=== PATIENT | male | born 1930 | race Caucasian/White ===

== ENCOUNTER 2018-12-14 17:45 | Inpatient (IN) | payer MEDICARE, MEDICAID ==
[~2018-12-14] VITALS: Ht 172.7 cm; Wt 92.1 kg
[~2018-12-14 17:45] MED LIST: ASPI-465; AZIT250T; CLOP75TA19; CRES20; DICY20TA59; FENO145T25; FURO40TA4; RABE20TA18; TERA5CAP3
[2018-12-14] MEDS ORDERED: ALBUTEROL 0.083% (NEB) 2.5 MG/3 ML AMP HHN STA (17:47)
[2018-12-14] MEDS ORDERED: IPRATROPIUM (NEB) 0.5 MG/2.5 ML AMP HHN ONE (18:00)
[2018-12-14] MEDS ORDERED: CEFTRIAXONE 1 GM/50 ML (PMX) 50 ML IVPB ONE (18:00)
[2018-12-14] MEDS ORDERED: AZITHROMYCIN 500MG/NS (PMX) 250 ML IVPB ONE (18:00)
[2018-12-14] MEDS ORDERED: METHYLPREDNISOLONE 125 MG INJ IV ONE (18:00)
[2018-12-14] MEDS ORDERED: ASPIRIN 325 MG TAB PO ONE (19:00)
[2018-12-14] MEDS ORDERED: ONDANSETRON 4 MG INJ IV PRN (19:30)
[2018-12-14] MEDS ORDERED: HEPARIN 1000 UNITS/ML 10 ML INJ IV ONE (19:30)
[2018-12-14] MEDS ORDERED: ACETAMINOPHEN 325 MG TAB PO PRN (19:30)
[2018-12-14] MEDS ORDERED: NITROGLYCERIN (SL) 0.4 MG TAB SL PRN (19:30)
[2018-12-14] MEDS ORDERED: NACL 0.9% 3 ML SYG IV SCH (19:30)
[2018-12-14] MEDS ORDERED: HEPARIN 1000 UNITS/ML 10 ML INJ IV PRN (19:30)
[2018-12-14] MEDS ORDERED: HEPARIN 25000 UNITS/250 ML 250 ML IV SCH (19:30)
[2018-12-14] MEDS: ATORVASTATIN 80 MG TAB PO SCH (20:06)
--- NOTE | 2018-12-14 20:32 | ERD ---
ER Documentation Chief Complaint Chief Complaint BIB [facility] FOR EVAL OF SOB TODAY. ALBUTEROL GIVEN BY EMS SHOE [employer]ISHER HPI Patient is an 88-year-old male with coronary disease who presents with shortness of breath. Please note the history and physical exam is limited patient shortness of breath. The patient was brought in by ambulance. The patient is on a new medication to raise his white blood cells which is possibly Neupogen. He has had worsening shortness of breath for the past 4 days. He is wheezing. He was given 5 mg of albuterol by paramedics. He has bilateral lower extremity swelling. Upon review of old medical records this is the patient's third visit to the ER since 2010. ROS All systems reviewed and are negative except as per history of present illness. Medications Home Meds Reported Medications Fenofibrate Nanocrystallized* (Tricor*) 145 Mg Tablet 09/19/10 Azithromycin* (Zithromax*) 250 Mg Tablet 09/19/10 Rosuvastatin Calcium* (Crestor*) 20 Mg Tablet 09/19/10 Dicyclomine Hcl* (Bentyl*) 20 Mg Tablet 09/19/10 Clopidogrel Bisulfate (Plavix) 75 Mg Tablet 09/19/10 Rabeprazole Sodium* (Aciphex*) 20 Mg Tablet. 09/19/10 Terazosin Hcl* (Terazosin Hcl*) 5 Mg Capsule 09/19/10 Aspirin (Adult Low Dose Aspirin) 81 Mg Tablet. 09/19/10 Furosemide (Lasix) 40 Mg Tab 09/19/10 Allergies Allergies: Coded Allergies: No Known Allergies (Verified Allergy, Mild, 05/06/12) PMhx/Soc History of Surgery: Yes (QUADRUPLE BX- '06, ANGIOPLASTY '07, HERNIA SX '08) Anesthesia Reaction: No Hx Neurological Disorder: No Hx Respiratory Disorders: No Hx Cardiac Disorders: Yes (cholesterol, HTN) Hx Psychiatric Problems: No Hx Miscellaneous Medical Probl: Yes (HTN, LYMPHADEMA RLE, iron deficiency) Hx Alcohol Use: Yes (1-2x/ month) Hx Substance Use: No Hx Tobacco Use: Yes (quit 40ya) Smoking Status: Former smoker FmHx Family History: No diabetes Physical Exam Vitals Vital Signs Date Temp Pulse Resp B/P (MAP) Pulse Ox O2 O2 Flow FiO2 Time Delivery Rate 12/14/18 80 18 108/48 95 Nasal 18:36 (68) Cannula 12/14/18 Nasal 2 18:34 Cannula 12/14/18 76 28 100 Aerosol 8.0 50 17:55 12/14/18 98.9 77 20 111/55 100 17:50 (73) Physical Exam Const: Moderate distress Head: Atraumatic Eyes: Normal Conjunctiva ENT: Normal External Ears, Nose and Mouth. Neck: Full range of motion. No meningismus. Resp: Tachypnea and wheezing Cardio: Regular rate and rhythm, no murmurs Abd: Soft, non tender, non distended. Normal bowel sounds Skin: No petechiae or rashes Back: No midline or flank tenderness Ext: Bilateral lower extremity swelling Neur: Awake and alert Psych: Normal Mood and Affect Result Diagram: 12/14/18175812/14/181758 Results 24 hrs Laboratory Tests Test 12/14/18 17:56 12/14/18 17:57 12/14/18 17:59 POC Venous Lactate 0.7 mmol/L B-Type Natriuretic Peptide 26274 PG/ML White Blood Count 12.1 10^3/ul Red Blood Count 2.99 10^6/ul Hemoglobin 8.8 g/dl Hematocrit 28.6 % Mean Corpuscular Volume 95.7 fl Mean Corpuscular Hemoglobin 29.4 pg Mean Corpuscular 30.8 g/dl Hemoglobin Concent Red Cell Distribution Width 15.8 % Platelet Count 133 10^3/UL Mean Platelet Volume 12.5 fl Immature Granulocytes % 0.900 % Neutrophils % 88.5 % Lymphocytes % 4.4 % Monocytes % 6.0 % Eosinophils % 0.0 % Basophils % 0.2 % Nucleated Red Blood Cells % 0.2 /100WBC Immature Granulocytes # 0.110 10^3/ul Neutrophils # 10.7 10^3/ul Lymphocytes # 0.5 10^3/ul Monocytes # 0.7 10^3/ul Eosinophils # 0.0 10^3/ul Basophils # 0.0 10^3/ul Nucleated Red Blood Cells # 0.0 10^3/ul Prothrombin Time 17.1 Sec Prothrombin Time Ratio 1.3 INR International Normalized Ratio 1.38 Activated Partial Thromboplast 41.1 Sec Time Sodium Level 145 mmol/L Potassium Level 5.2 mmol/L Chloride Level 110 mmol/L Carbon Dioxide Level 24 mmol/L Anion Gap 11 Blood Urea Nitrogen 94 mg/dl Creatinine 3.38 mg/dl Est Glomerular Filtrat Rate mL/min mL/min Glucose Level 155 mg/dl Calcium Level 8.3 mg/dl Total Bilirubin 0.0 mg/dl Direct Bilirubin 0.00 mg/dl Indirect Bilirubin 0.0 mg/dl Aspartate Amino Transf (AST/SGOT) 26 IU/L Alanine 22 IU/L Aminotransferase (ALT/SGPT) Alkaline Phosphatase 133 IU/L Troponin I 0.361 ng/ml Total Protein 6.5 g/dl Albumin 3.6 g/dl Globulin 2.90 g/dl Albumin/Globulin Ratio 1.24 Current Medications Medications Dose Sig/Syd Start Time Status Last (Trade) Ordered Route PRN Stop Time Admin Dose Reason Admin Albuterol 5 mg ONCE STAT 12/14/18 DC 12/14/18 (Proventil HHN 17:47 17:54 0.083% (Neb)) 12/14/18 17:48 Ipratropium 0.5 mg ONCE ONCE 12/14/18 DC 12/14/18 [place] HHN 18:00 17:54 (Atrovent 12/14/18 18:01 0.02% (Neb)) 125 mg ONCE ONCE 12/14/18 DC 12/14/18 Methylprednis IV 18:00 18:09 olone Sodium 12/14/18 18:01 Succinate (Solu-Medrol) Ceftriaxone 50 ml @ ONCE ONCE 12/14/18 DC 12/14/18 Sodium 100 mls/hr IVPB 18:00 18:09 12/14/18 18:29 Azithromycin 250 ml @ ONCE ONCE 12/14/18 DC 12/14/18 250 mls/hr IVPB 18:00 18:29 12/14/18 18:59 Aspirin 325 mg ONCE ONCE 12/14/18 DC 12/14/18 (Aspirin) PO 19:00 18:54 12/14/18 19:01 Ondansetron 4 mg ER BRIDGE 12/14/18 HCl (Zofran PRN IV 19:30 Inj) NAUSEA/VOMITI 12/15/18 19:29 NG 650 mg ER BRIDGE 12/14/18 Acetaminophen PRN PO 19:30 (Tylenol .MILD PAIN 12/15/18 19:29 Tab) 1-3 OR TEMP IV Flush 3 ml PER 12/14/18 (NS 3 ml) PROTOCOL IV 19:30 Aspirin 81 mg DAILY PO 12/15/18 (Aspirin) 09:00 1 tab Q5M PRN 12/14/18 Nitroglycerin SL .CHEST 19:30 PAIN (Nitroglyceri n (Sl Tab) 0.4 Mg) 650 mg Q6H PRN 12/14/18 Acetaminophen PO .PAIN 1-3 19:30 (Tylenol OR TEMP Tab) 1 tab Q6H PRN 12/14/18 Acetaminophen PO .PAIN 4-6 19:30 / Hydrocodone Bitart ([place] (5/325)) Morphine 2 mg Q4H PRN 12/14/18 Sulfate IV .PAIN 19:30 (morphine) 7-10 DC ONCE ONCE 12/14/18 DC Miscellaneous previous XX 19:30 hepa... 12/14/18 19:30 Information (* Miscellaneous Pharmacy Order) Heparin 4,000 unit ONCE ONCE 12/14/18 DC Sodium IV 19:30 (Porcine) 12/14/18 19:30 (Heparin (1000 Units/ml)) Heparin 4,000 unit PER PROTOCOL 12/14/18 DC Sodium PRN IV 19:30 (Porcine) aPTT<47 12/14/18 19:30 (Heparin (1000 Units/ml)) Heparin 250 ml @ 0 PER 12/14/18 DC Sodium mls/hr PROTOCOL IV 19:30 (Porcine) 12/14/18 19:30 80 mg HS PO 12/14/18 12/14/18 Atorvastatin 21:00 20:06 Calcium (Lipitor) Procedures/MDM EKG read by me: Rate/Rhythm: Right bundle branch block rate 71 Intervals: Normal Impression: Right bundle branch block without ST elevations X-ray shows pneumonia versus pulmonary edema per radiology. Patient is a 88-year-old male presents with shortness of breath. The patient was given albuterol and Atrovent as well as Solu-Medrol. X-ray shows possible pneumonia so he was given ceftriaxone and Zithromax as well. Troponin is positive but the patient also has elevated BUN and creatinine. However this is possibly an NSTEMI so the patient was given aspirin. The patient will be admitted to the care of the panel team to a telemetry inpatient bed. Prognosis is poor given his age and comorbidities. Discussed with the family regarding goals of care would be appropriate. I doubt STEMI, pneumothorax, or pulmonary embolism. I doubt sepsis or severe sepsis at this time. Critical Care: Time: 35 minutes excluding all billable procedures. Treatments/Evaluations: Close monitoring and treatment of unstable vital signs, cardiorespiratory, and neurologic status, while maintaining tight balance of fluid, respiratory, and cardiac interventions. Departure Diagnosis: Primary Impression: Shortness of breath Additional Impressions: Pneumonia Pneumonia type: due to unspecified organism Laterality: unspecified laterality Lung location: unspecified part of lung Qualified Codes: J18.9 - Pneumonia, unspecified organism NSTEMI (non-ST elevated myocardial infarction) Condition: Serious LIZZY SINGER MD Dec 14, 2018 20:32
[2018-12-14 21:00] VITALS: BP_SYST 125; BP_SYST 126; BP_DIAS 58; BP_DIAS 62; PULSE 71; PULSE 73; RESP 18
[2018-12-14 21:11] VITALS: PULSE 73
[2018-12-14 21:18] VITALS: Ht 172.7 cm; Wt 92.1 kg
--- NOTE | 2018-12-14 23:38 | HP ---
Date/Time of Note Date/Time of Note DATE: 12/14/18 TIME: 23:38 Assessment/Plan VTE Prophylaxis Risk score (from Ns)>0 risk: 8 SCD applied (from Ns): Yes Pharmacological prophylaxis: LMWH Lines/Catheters IV C[facility]ter [facility] (from [facility]): Saline Lock Assessment/Plan Assessment/Plan 1. CHF exacerbation: Acute on chronic -Telemetry monitoring -Will diurese -Monitor urine output -2D echo 2. NSTEMI -Status post aspirin ER -will give treatment dose blood thinner -Serial troponin -2D echo and cardiology consult 3. Presumed acute on CKD -Place a Pleitez especially given history of BPH -Renal ultrasound and nephrology consult -Urine electrolytes 4. BPH: Continue home med 5. Hypertension: BP is in acceptable range. Continue home meds 6. History of CAD with CABG: See above 7. Anemia -Check FOBT and ferritin/iron to work-up for GI bleed and iron deficiency Result Diagram: 12/14/18 1759 12/14/18 1759 Results 24hrs Laboratory Tests Test 12/14/18 17:56 12/14/18 17:57 12/14/18 17:59 12/14/18 19:32 POC Venous Lactate 0.7 B-Type Natriuretic 25289 H Peptide White Blood Count 12.1 H Red Blood Count 2.99 L Hemoglobin 8.8 L Hematocrit 28.6 L Mean Corpuscular 95.7 Volume Mean Corpuscular 29.4 Hemoglobin Mean Corpuscular 30.8 L Hemoglobin Concent Red Cell 15.8 H Distribution Width Platelet Count 133 L Mean Platelet Volume 12.5 H Immature 0.900 H Granulocytes % Neutrophils % 88.5 H Lymphocytes % 4.4 L Monocytes % 6.0 Eosinophils % 0.0 Basophils % 0.2 Nucleated Red Blood 0.2 H Cells % Immature 0.110 H Granulocytes # Neutrophils # 10.7 H Lymphocytes # 0.5 L Monocytes # 0.7 Eosinophils # 0.0 Basophils # 0.0 Nucleated Red Blood 0.0 Cells # Prothrombin Time 17.1 H Prothrombin Time 1.3 Ratio INR International 1.38 Normalized Ratio Activated 41.1 H Partial Thromboplast Time Sodium Level 145 H Potassium Level 5.2 H Chloride Level 110 Carbon Dioxide Level 24 Anion Gap 11 Blood Urea Nitrogen 94 H Creatinine 3.38 H Est Glomerular Filtrat Rate mL/min Glucose Level 155 Calcium Level 8.3 L Total Bilirubin 0.0 L Direct Bilirubin 0.00 Indirect Bilirubin 0.0 Aspartate Amino 26 Transf (AST/SGOT) Alanine 22 Aminotransferase (AL T/SGPT) Alkaline Phosphatase 133 H Troponin I 0.361 *H 0.402 *H Total Protein 6.5 Albumin 3.6 Globulin 2.90 Albumin/Globulin 1.24 Ratio Test 12/14/18 22:05 Lactic Acid Level 0.8 HPI/ROS Admit Date/Time Admit Date/Time Dec 14, 2018 at 19:05 Hx of Present Illness This is an 88-year-old male with a history of hypertension, asthma, BPH, CKD, CAD with CABG who presents the ER complaining of shortness of breath and wheezing. Patient states he gets short of breath a lot of times but over the past few days has been progressively getting worse. Denied chest pain. When presented to the ER, vitals were stable. Labs shows a WBC of 12,000, hemoglobin 8.8, creatinine 3.38, potassium 5.2. BNP 16,000. First troponin 0.361. Chest x-ray shows mild pulmonary vascular congestion with interstitial edema. Strandy consolidation in both midlung zones laterally can be seen with alveolar edema or infection. PMH/Family/Social Past Medical History Medical History: other (See HPI) Medications Current Medications Ondansetron HCl (Zofran Inj) 4 mg ER BRIDGE PRN IV NAUSEA/VOMITING; Start 12/14/18 at 19:30; Stop 12/15/18 at 19:29 Acetaminophen (Tylenol Tab) 650 mg ER BRIDGE PRN PO .MILD PAIN 1-3 OR TEMP; Start 12/14/18 at 19:30; Stop 12/15/18 at 19:29 IV Flush (NS 3 ml) 3 ml PER PROTOCOL IV ; Start 12/14/18 at 19:30 Aspirin (Aspirin) 81 mg DAILY PO ; Start 12/15/18 at 09:00 Nitroglycerin (Nitroglycerin (Sl Tab) 0.4 Mg) 1 tab Q5M PRN SL .CHEST PAIN; Start 12/14/18 at 19:30 Acetaminophen (Tylenol Tab) 650 mg Q6H PRN PO .PAIN 1-3 OR TEMP; Start 12/14/18 at 19:30 Acetaminophen/ Hydrocodone Bitart ([place] (5/325)) 1 tab Q6H PRN PO .PAIN 4-6; Start 12/14/18 at 19:30 Morphine Sulfate (morphine) 2 mg Q4H PRN IV .PAIN 7-10; Start 12/14/18 at 19:30 Atorvastatin Calcium (Lipitor) 80 mg HS PO Last administered on 12/14/18at 20:06; Admin Dose 80 MG; Start 12/14/18 at 21:00 Coded Allergies: No Known Allergies (Verified Allergy, Mild, 05/06/12) Past Surgical History Past Surgical Hx: coronary bypass surgery Family History Significant Family History: no pertinent family hx Social History Alcohol Use: none Smoking Status: Former smoker Drug Use: none Exam/Review of Systems Vital Signs Vitals Vital Signs Date Temp Pulse Resp B/P (MAP) Pulse Ox O2 O2 Flow FiO2 Time Delivery Rate 12/14/18 73 21:11 12/14/18 Nasal 2.0 21:00 Cannula 12/14/18 97.9 18 126/58 95 21:00 (80) 12/14/18 50 17:55 Exam Constitutional: other (Mild shortness of breath noted) Head: normocephalic, atraumatic Eyes: EOMI, PERRL Respiratory: diminished breath sounds, wheezing Cardiovascular: regular rate and rhythm, nl pulses Gastrointestinal: soft Extremities: other (Bilateral lower extremity pitting edema. Right lower extremity is bigger than left and has some venous stasis change and old scar) LAUREN NELSON MD Dec 14, 2018 23:38
[2018-12-15] VITALS (10 sets, daily range): BP systolic 113–185; BP diastolic 55–81; PULSE 61–80; RESP 18–20
[2018-12-15] MEDS ORDERED: ENOXAPARIN 100 MG/ML SYG SC STA (02:45)
[2018-12-15] MEDS: ASPIRIN 81 MG TAB PO SCH (09:26)
[2018-12-15] MEDS: FUROSEMIDE 20 MG INJ IV SCH ×2 (09:26→18:00)
[2018-12-15] MEDS ORDERED: ALBUTEROL/IPRATROPIUM (NEB) 3 ML AMP HHN PRN (11:00)
[2018-12-15] MEDS ORDERED: hydrALAzine 20 MG INJ IV PRN (11:00)
[2018-12-15] MEDS: ARFORMOTEROL TARTRATE 15MCG/2 ML AMP NEB SCH ×2 (11:00→22:42)
--- NOTE | 2018-12-15 11:20 | PN ---
Date/Time of Note Date/Time of Note DATE: 12/15/18 TIME: 11:12 Assessment/Plan VTE Prophylaxis Risk score (from Nsg)>0 risk: 5 SCD applied (from Nsg): Yes Pharmacological prophylaxis: heparin Lines/Catheters IV Catheter Type (from [place]): Saline Lock Assessment/Plan Hospital Course SUBJECTIVE: Continues to complain of dyspnea. Denies any chest pain. OBJECTIVE: Physical Exam General: Obese, 88 year-old female lying in bed in mild to moderate respiratory distress. HEENT: Normocephalic, atraumatic. Eyes: Anicteric sclerae, conjunctivae clear. ENT: Nasal septum midline, oral mucosa moist. Neck supple. Respiratory: Bilaterally diminished breath sounds. Use of accessory muscles of respiration. Bilateral expiratory wheezing. Cardiovascular: S1, S2 heard. Regular rate and rhythm. Abdomen: Soft, nontender, and nondistended. Bowel sounds positive in all 4 quadrants. Genitourinary: Deferred. Extremities: No cyanosis, no clubbing. Bilateral lower extremity edema. Right lower extremity edema greater than the left. Neurologic: Cranial nerves II through XII grossly intact. The patient is awake, alert, and oriented. Labs & Vitals per chart ASSESSMENT & PLAN 88-year-old male with comorbidities including CAD status post CABG, dyslipidemia, obesity, chronic kidney disease, prostate hypertrophy, and hypertension, who came to the emergency room with chief complaint of dyspnea and wheezing that has been progressively getting worse. Patient was also noticed to have elevated troponins in the emergency room. The patient's chest x-ray was showing evidence of mild pulmonary vascular congestion with interstitial edema. The patient was admitted to inpatient setting for further treatment and evaluation. 1. Acute respiratory failure. -Hypoxic. -Most probably secondary to underlying reactive airway disease and CHF exacerbation. -Continue inhaled bronchodilators ADIA and LABA. -Start tapering dose of steroids -Continue diuresis as renal function allows 2. Suspect COPD. -Remote history of smoking over years. -Continue inhaled bronchodilators ADIA and LABA. -Start tapering dose of steroids. 3. NSTEMI. -Known history of CAD, status post CABG. -Continue aspirin. -Continue high-dose statins. -Cardiology consult pending. 4. Acute on chronic kidney disease. -Nephrology consult has been obtained. 5. Benign prostatic hypertrophy. -Continue tamsulosin. 6. Hypertension. -Blood pressure well controlled off antihypertensives. 7. Dyslipidemia. -Continue statins. 8. Hyperkalemia. -Most probably secondary to worsening renal function. -Treat with potassium exchange resins. 9. Metabolic acidosis. -Etiology could be secondary to worsening renal function. 10. Normocytic anemia -Most probably secondary to underlying chronic kidney disease. -Monitor H&H closely. 11. Chronic right lower extremity lymphedema. 12. CHF exacerbation. -Systolic Vs diastolic. -Continue diuresis as renal function allows. -Pending 2D echocardiogram. 13. Fluids, electrolytes, and nutrition. N.p.o. except for medications. 14. DVT prophylaxis. -SQ heparin. 15. Plan. -Continue inhaled bronchodilators and tapering dose of steroids. -Continue inpatient monitoring. -Await cardiology evaluation. The patient was seen in collaboration with . Result Diagram: 12/15/1862712/15/18627 Results 24hrs Laboratory Tests Test 12/14/18 17:56 12/14/18 17:57 12/14/18 17:59 12/14/18 19:32 POC Venous Lactate 0.7 B-Type Natriuretic 03899 H Peptide White Blood Count 12.1 H Red Blood Count 2.99 L Hemoglobin 8.8 L Hematocrit 28.6 L Mean Corpuscular 95.7 Volume Mean Corpuscular 29.4 Hemoglobin Mean Corpuscular 30.8 L Hemoglobin Concent Red Cell 15.8 H Distribution Width Platelet Count 133 L Mean Platelet Volume 12.5 H Immature 0.900 H Granulocytes % Neutrophils % 88.5 H Lymphocytes % 4.4 L Monocytes % 6.0 Eosinophils % 0.0 Basophils % 0.2 Nucleated Red Blood 0.2 H Cells % Immature 0.110 H Granulocytes # Neutrophils # 10.7 H Lymphocytes # 0.5 L Monocytes # 0.7 Eosinophils # 0.0 Basophils # 0.0 Nucleated Red Blood 0.0 Cells # Prothrombin Time 17.1 H Prothrombin Time 1.3 Ratio INR International 1.38 Normalized Ratio Activated 41.1 H Partial Thromboplast Time Sodium Level 145 H Potassium Level 5.2 H Chloride Level 110 Carbon Dioxide Level 24 Anion Gap 11 Blood Urea Nitrogen 94 H Creatinine 3.38 H Est Glomerular Filtrat Rate mL/min Glucose Level 155 Calcium Level 8.3 L Total Bilirubin 0.0 L Direct Bilirubin 0.00 Indirect Bilirubin 0.0 Aspartate Amino 26 Transf (AST/SGOT) Alanine 22 Aminotransferase (AL T/SGPT) Alkaline Phosphatase 133 H Troponin I 0.361 *H 0.402 *H Total Protein 6.5 Albumin 3.6 Globulin 2.90 Albumin/Globulin 1.24 Ratio Test 12/14/18 22:05 12/15/18 00:28 12/15/18 06:28 Lactic Acid Level 0.8 Troponin I 0.440 *H 0.532 *H White Blood Count 9.2 # Red Blood Count 2.89 L Hemoglobin 8.4 L Hematocrit 27.1 L Mean Corpuscular 93.8 Volume Mean Corpuscular 29.1 Hemoglobin Mean Corpuscular 31.0 L Hemoglobin Concent Red Cell 15.9 H Distribution Width Platelet Count 132 L Mean Platelet Volume 12.6 H Immature 2.000 H Granulocytes % Neutrophils % Segmented 78 H Neutrophils % (Manual) Band Neutrophils % 19 H (Manual) Lymphocytes % Lymphocytes % 2 L (Manual) Monocytes % Eosinophils % Basophils % Metamyelocytes % 1 H (manual) Nucleated Red Blood 0.0 Cells % Immature 0.180 H Granulocytes # Neutrophils # Neutrophils # 7.3 (Manual) Band Neutrophils # 1.7 H Lymphocytes (Manual) 0.1 L Lymphocytes # Monocytes # Eosinophils # Basophils # Metamyelocytes # 0.0 Nucleated Red Blood Cells # Platelet Estimate DECREASED Polychromasia 1+ Anisocytosis 1+ Sodium Level 146 H Potassium Level 5.6 H Chloride Level 112 H Carbon Dioxide Level 20 L Anion Gap 14 H Blood Urea Nitrogen 97 H Creatinine 3.42 H Est Glomerular Filtrat Rate mL/min Glucose Level 183 Calcium Level 8.1 L Magnesium Level 2.2 Total Bilirubin 0.0 L Direct Bilirubin 0.00 Indirect Bilirubin 0.0 Aspartate Amino 28 Transf (AST/SGOT) Alanine 33 Aminotransferase (AL T/SGPT) Alkaline Phosphatase 153 H Total Protein 5.4 #L Albumin 3.1 L Globulin 2.30 Albumin/Globulin 1.34 Ratio Triglycerides Level 308 H Cholesterol Level 86 L LDL Cholesterol, 14 Calculated HDL Cholesterol 10 L Cholesterol/HDL 8.6 Ratio Thyroid Stimulating Pending Hormone (TSH) Exam/Review of Systems Exam Vitals Vital Signs Date Temp Pulse Resp B/P (MAP) Pulse Ox O2 O2 Flow FiO2 Time Delivery Rate 12/15/18 73 08:35 12/15/18 Nasal 2.0 08:00 Cannula 12/15/18 97.4 20 136/62 96 07:09 (86) 12/14/18 50 17:55 Intake and Output 12/14/18 12/14/18 12/15/18 1515:00 23:00 07:00 IntakeIntake Total 420 ml 350 ml OutputOutput Total 200 ml BalanceBalance 420 ml 150 ml Results Results 24hrs Laboratory Tests Test 12/14/18 17:56 12/14/18 17:57 12/14/18 17:59 12/14/18 19:32 POC Venous Lactate 0.7 B-Type Natriuretic 19881 H Peptide White Blood Count 12.1 H Red Blood Count 2.99 L Hemoglobin 8.8 L Hematocrit 28.6 L Mean Corpuscular 95.7 Volume Mean Corpuscular 29.4 Hemoglobin Mean Corpuscular 30.8 L Hemoglobin Concent Red Cell 15.8 H Distribution Width Platelet Count 133 L Mean Platelet Volume 12.5 H Immature 0.900 H Granulocytes % Neutrophils % 88.5 H Lymphocytes % 4.4 L Monocytes % 6.0 Eosinophils % 0.0 Basophils % 0.2 Nucleated Red Blood 0.2 H Cells % Immature 0.110 H Granulocytes # Neutrophils # 10.7 H Lymphocytes # 0.5 L Monocytes # 0.7 Eosinophils # 0.0 Basophils # 0.0 Nucleated Red Blood 0.0 Cells # Prothrombin Time 17.1 H Prothrombin Time 1.3 Ratio INR International 1.38 Normalized Ratio Activated 41.1 H Partial Thromboplast Time Sodium Level 145 H Potassium Level 5.2 H Chloride Level 110 Carbon Dioxide Level 24 Anion Gap 11 Blood Urea Nitrogen 94 H Creatinine 3.38 H Est Glomerular Filtrat Rate mL/min Glucose Level 155 Calcium Level 8.3 L Total Bilirubin 0.0 L Direct Bilirubin 0.00 Indirect Bilirubin 0.0 Aspartate Amino 26 Transf (AST/SGOT) Alanine 22 Aminotransferase (AL T/SGPT) Alkaline Phosphatase 133 H Troponin I 0.361 *H 0.402 *H Total Protein 6.5 Albumin 3.6 Globulin 2.90 Albumin/Globulin 1.24 Ratio Test 12/14/18 22:05 12/15/18 00:28 12/15/18 06:28 Lactic Acid Level 0.8 Troponin I 0.440 *H 0.532 *H White Blood Count 9.2 # Red Blood Count 2.89 L Hemoglobin 8.4 L Hematocrit 27.1 L Mean Corpuscular 93.8 Volume Mean Corpuscular 29.1 Hemoglobin Mean Corpuscular 31.0 L Hemoglobin Concent Red Cell 15.9 H Distribution Width Platelet Count 132 L Mean Platelet Volume 12.6 H Immature 2.000 H Granulocytes % Neutrophils % Segmented 78 H Neutrophils % (Manual) Band Neutrophils % 19 H (Manual) Lymphocytes % Lymphocytes % 2 L (Manual) Monocytes % Eosinophils % Basophils % Metamyelocytes % 1 H (manual) Nucleated Red Blood 0.0 Cells % Immature 0.180 H Granulocytes # Neutrophils # Neutrophils # 7.3 (Manual) Band Neutrophils # 1.7 H Lymphocytes (Manual) 0.1 L Lymphocytes # Monocytes # Eosinophils # Basophils # Metamyelocytes # 0.0 Nucleated Red Blood Cells # Platelet Estimate DECREASED Polychromasia 1+ Anisocytosis 1+ Sodium Level 146 H Potassium Level 5.6 H Chloride Level 112 H Carbon Dioxide Level 20 L Anion Gap 14 H Blood Urea Nitrogen 97 H Creatinine 3.42 H Est Glomerular Filtrat Rate mL/min Glucose Level 183 Calcium Level 8.1 L Magnesium Level 2.2 Total Bilirubin 0.0 L Direct Bilirubin 0.00 Indirect Bilirubin 0.0 Aspartate Amino 28 Transf (AST/SGOT) Alanine 33 Aminotransferase (AL T/SGPT) Alkaline Phosphatase 153 H Total Protein 5.4 #L Albumin 3.1 L Globulin 2.30 Albumin/Globulin 1.34 Ratio Triglycerides Level 308 H Cholesterol Level 86 L LDL Cholesterol, 14 Calculated HDL Cholesterol 10 L Cholesterol/HDL 8.6 Ratio Thyroid Stimulating Pending Hormone (TSH) Medications Medication Current Medications Ondansetron HCl (Zofran Inj) 4 mg ER BRIDGE PRN IV NAUSEA/VOMITING; Start 12/14/18 at 19:30; Stop 12/15/18 at 19:29 Acetaminophen (Tylenol Tab) 650 mg ER BRIDGE PRN PO .MILD PAIN 1-3 OR TEMP; Start 12/14/18 at 19:30; Stop 12/15/18 at 19:29 IV Flush (NS 3 ml) 3 ml PER PROTOCOL IV ; Start 12/14/18 at 19:30 Aspirin (Aspirin) 81 mg DAILY PO Last administered on 12/15/18at 09:26; Admin Dose 81 MG; Start 12/15/18 at 09:00 Nitroglycerin (Nitroglycerin (Sl Tab) 0.4 Mg) 1 tab Q5M PRN SL .CHEST PAIN; Start 12/14/18 at 19:30 Acetaminophen (Tylenol Tab) 650 mg Q6H PRN PO .PAIN 1-3 OR TEMP; Start 12/14/18 at 19:30 Acetaminophen/ Hydrocodone Bitart ([place] (5/325)) 1 tab Q6H PRN PO .PAIN 4-6; Start 12/14/18 at 19:30 Morphine Sulfate (morphine) 2 mg Q4H PRN IV .PAIN 7-10; Start 12/14/18 at 19:30 Atorvastatin Calcium (Lipitor) 80 mg HS PO Last administered on 12/14/18at 20:06; Admin Dose 80 MG; Start 12/14/18 at 21:00 Tamsulosin HCl (Flomax) 0.4 mg HS PO ; Start 12/15/18 at 21:00 Furosemide (Lasix) 20 mg BID DIURETICS IV Last administered on 12/15/18at 09:2 6; Admin Dose 20 MG; Start 12/15/18 at 08:30 Albuterol/ Ipratropium (Duoneb) 3 ml Q6HWA RESP THERAPY HHN ; Start 12/15/18 at 14:00; Status UNV Albuterol/ Ipratropium (Duoneb) 3 ml Q2H RESP THERAPY PRN HHN Dyspnea; Start 12/15/18 at 11:00; Status UNV Arformoterol Tartrate ([place] (Neb)) 2 ml BID NEB ; Start 12/15/18 at 11:00; Status UNV Methylprednisolone Sodium Succinate (Solu-Medrol) 60 mg Q8 IV ; Start 12/15/18 at 14:00; Status UNV Pantoprazole (Protonix Tab) 40 mg BID@,18 PO ; Start 12/15/18 at 18:00; Status UNV Hydralazine HCl (Apresoline) 10 mg Q6H PRN IV SBP>160; Start 12/15/18 at 11:00; Status UNV GAMA MUNROE NP Dec 15, 2018 11:20
[2018-12-15] MEDS ORDERED: NA POLYST SULFON 15 GM/60 ML BTL PO ONE (11:30)
[2018-12-15] MEDS: METHYLPREDNISOLONE 125 MG INJ IV SCH ×2 (13:37→21:10)
[2018-12-15] MEDS ORDERED: SODIUM POLYSTYRENE 15 GM KIT (POWDER + SORBITOL) PO ONE (14:00)
[2018-12-15] MEDS ORDERED: HEPARIN 5,000 UNIT/1 ML VIAL SC SCH (14:00)
[2018-12-15] MEDS: ALBUTEROL/IPRATROPIUM (NEB) 3 ML AMP HHN SCH ×2 (14:14→22:35)
--- NOTE | 2018-12-15 16:50 | RADRPT ---
Echocardiogram Report Patient Name: Dipika PAZ ID: [id number] : 1930 (88y 1m)Study Date: 12/15/2018 7:32:00 AM Gender: MAccession #: [id number] Tech: AnnaArianne Rodriguez [facility] Location: [facility] Ref.Physician: AMELIA MARTINEZ Height(Cm): BSA: Weight(Kg): Quality: AdequateAccount #: Procedures: Echocardiographic Report: Transthoracic echocardiogram with complete 2D, M-Mode, and doppler examination. Indications: NSTEMI. Measurements: 2D/M Mode Doppler Measurement Value Normal Range Measurement Value Normal Range LVIDd 2D 4.1 [ 4.2 - 5.8 ] cm AV Peak Maurice 1.4 [ 100.0 - 170.0 ] cm/sec LVIDs 2D 3.1 [ 2.5 - 4.0 ] cm AV Peak PG 8.0 [ 2.0 - 9.0 ] mmHg LVPWd 2D 1.3 [ 0.6 - 1.0 ] cm LVOT Peak Maurice 1.0 [ 70.0 - 110.0 ] cm/sec IVSd 2D 1.3 [ 0.6 - 1.0 ] cm LVOT Peak PG 4.0 [ 2.0 - 6.0 ] mmHg AoR Diam 2D 3.1 [ 2.6 - 3.4 ] cm MV E Peak Maurice 1.3 [ 60.0 - 130.0 ] cm/sec EDV 2D 72.9 [ 62.0 - 150.0 ] ml MV A Peak Maurice 1.0 [ 100.0 - 120.0 ] cm/sec ESV 2D 38.2 [ 21.0 - 61.0 ] ml MV E/A 1.3 [ 0.8 - 1.5 ] ratio EF 2D 47.6 [ 52.0 - 72.0 ] percent MV Decel Time 211 [ 104 - 258 ] msec LA Dimen 2D 5.1 [ 3.0 - 4.0 ] cm Lat E` Maurice 0.1 [ 10.0 - 15.0 ] cm/sec Lateral E/E` 8.9 [ 1.0 - 2.0 ] ratio MV E/A 1.3 [ 0.8 - 1.5 ] ratio TR Peak Maurice 3.5 [ 100.0 - 280.0 ] cm/sec TR Peak PG 50.0 mmHg RVSP 60.0 [ 10.0 - 36.0 ] mmHg RA Pressure 10.0 mmHg Findings: Left Ventricle: Normal left ventricular systolic function. Normal left ventricular cavity size. Mild concentric left ventricular hypertrophy. Ejection fraction is visually estimated at 55 %. Abnormal Diastolic Function. Right Ventricle: Normal right ventricular size. Normal right ventricular systolic function. Left Atrium: There is moderate enlargement of left atrium. Right Atrium: The right atrium is normal in size. There is mild enlargement of right atrium. Mitral Valve: Normal appearance of the mitral valve. Mild mitral annular calcification. Trace mitral regurgitation. Aortic Valve: No significant aortic stenosis or insufficiency. Aortic cusps appear mildly calcified. Tricuspid Valve: Normal appearance of the tricuspid valve. Estimated peak PA systolic pressure 60 mmHg. There is mild to moderate tricuspid regurgitation. Pulmonic Valve: Pulmonic valve not well visualized. Pericardium: Normal pericardium with no significant pericardial effusion. Aorta: Normal aortic root. IVC: Dilated IVC without respiratory collapse consistent with elevated right atrial pressure. Conclusions: There is moderate enlargement of left atrium. Normal left ventricular systolic function. Normal left ventricular cavity size. Mild concentric left ventricular hypertrophy. Ejection fraction is visually estimated at 55 %. Abnormal Diastolic Function. Normal appearance of the mitral valve. Mild mitral annular calcification. Trace mitral regurgitation. No significant aortic stenosis or insufficiency. Aortic cusps appear mildly calcified. Normal appearance of the tricuspid valve. Estimated peak PA systolic pressure 60 mmHg. There is mild to moderate tricuspid regurgitation. Dilated IVC without respiratory collapse consistent with elevated right atrial pressure. Electronically Signed By: Bud Rahman 2018-12-15 16:50:03 PDT
--- NOTE | 2018-12-15 17:36 | CONS ---
Assessment/Plan Assessment/Plan Hospital Course (Demo Recall) 1. Abnormal troponin most likely secondary to below versus type II non-ST elevation myocardial infarction 2. Hypoxemic respiratory failure 3. COPD exacerbation, possible pneumonia 4. 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 Hypertension 6. Dyslipidemia 7 for history of coronary artery disease 8. History of coronary bypass graft 9. History of PCI 10. Encephalopathy 11. Anemia 12. Renal failure probably chronic kidney disease Recommendations: Continue with medical therapy. Aspirin will be continued. Nebulizer treatment pulmonary care as per internal medicine. Consider pulmonary consultation as well Echocardiogram showed preserved LV systolic function. Patient does have pulmonary hypertension Not on any KYLIE inhibitor or ARB due to his renal failure Consider renal consultation as well Continue monitor on telemetry Other invasive options such as a coronary angiogram discussed with the patient and the daughter. Was explained that unless patient is willing to go on dialysis is best not to pursue coronary angiography because there is a higher chance of require him to go on dialysis. Patient and family said they do not want to be dialyzed and are not ready for it at this point. We will continue with medical therapy for now Thank you for his referral. We will continue to follow along with you PIPO GABRIEL MD [facility] Consultation Date/Type/Reason Admit Date/Time Dec 14, 2018 at 19:05 Date of Consultation: Dec 15, 2018 Type of Consult Cardiology Reason for Consultation + trop Requesting Provider: LAUREN NELSON MD Date/Time of Note DATE: 12/15/18 TIME: 17:30 Hx of Present Illness Interventional cardiology consultation note Chief complaint: Shortness of breath and weakness Reason for consult: Abnormal troponin, coronary artery disease History of present illness: Thank you for this referral. History was informed the patient who is a poor historian from discussion with his daughter who is actually a good historian review of the chart and discussion with staff and physicians. This is a 88-year-old gentleman with history of coronary artery disease status post 5 vessel bypass surgery 2006 status post 2 PCI's after that, chronic kidney disease who came to emergency room because of increasing weakness and shortness of breath. 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 Came to emergency room was noted to have wheezing. Also has some chest tightness when he takes a deep breath as well. Patient has been confused since he has come here and agitated and has pulled out his Pleitez cath and is started having bleeding from his urine. He does not want to stay in bed and keeps moving around. Allergies: No known drug allergy Medications were reviewed as per medical reconciliation sheet Family history: No reported history of early coronary artery disease Social history: Has quit smoking after smoking for many years Past medical history: Coronary artery disease status post bypass graft, status post PCI x2 most recent one was about 10 years ago according to the daughter. Hypertension diabetes dyslipidemia chronic kidney disease anemia. Right leg lymphedema Review of system: Patient denies all others except for above-mentioned Past Medical History Home Meds Reported Medications Fenofibrate Nanocrystallized* (Tricor*) 145 Mg Tablet 09/19/10 Azithromycin* (Zithromax*) 250 Mg Tablet 09/19/10 Rosuvastatin Calcium* (Crestor*) 20 Mg Tablet 09/19/10 Dicyclomine Hcl* (Bentyl*) 20 Mg Tablet 09/19/10 Clopidogrel Bisulfate (Plavix) 75 Mg Tablet 09/19/10 Rabeprazole Sodium* (Aciphex*) 20 Mg Tablet. 09/19/10 Terazosin Hcl* (Terazosin Hcl*) 5 Mg Capsule 09/19/10 Aspirin (Adult Low Dose Aspirin) 81 Mg Tablet. 09/19/10 Furosemide (Lasix) 40 Mg Tab 09/19/10 Medications Current Medications Ondansetron HCl (Zofran Inj) 4 mg ER BRIDGE PRN IV NAUSEA/VOMITING; Start 12/14/18 at 19:30; Stop 12/15/18 at 19:29 Acetaminophen (Tylenol Tab) 650 mg ER BRIDGE PRN PO .MILD PAIN 1-3 OR TEMP; Start 12/14/18 at 19:30; Stop 12/15/18 at 19:29 IV Flush (NS 3 ml) 3 ml PER PROTOCOL IV ; Start 12/14/18 at 19:30 Aspirin (Aspirin) 81 mg DAILY PO Last administered on 12/15/18at 09:26; Admin Dose 81 MG; Start 12/15/18 at 09:00 Nitroglycerin (Nitroglycerin (Sl Tab) 0.4 Mg) 1 tab Q5M PRN SL .CHEST PAIN; Start 12/14/18 at 19:30 Acetaminophen (Tylenol Tab) 650 mg Q6H PRN PO .PAIN 1-3 OR TEMP; Start 12/14/18 at 19:30 Acetaminophen/ Hydrocodone Bitart (Fillmore (5/325)) 1 tab Q6H PRN PO .PAIN 4-6; Start 12/14/18 at 19:30 Morphine Sulfate (morphine) 2 mg Q4H PRN IV .PAIN 7-10; Start 12/14/18 at 19:30 Atorvastatin Calcium (Lipitor) 80 mg HS PO Last administered on 12/14/18at 20:06; Admin Dose 80 MG; Start 12/14/18 at 21:00 Tamsulosin HCl (Flomax) 0.4 mg HS PO ; Start 12/15/18 at 21:00 Furosemide (Lasix) 20 mg BID DIURETICS IV Last administered on 12/15/18at 09:26; Admin Dose 20 MG; Start 12/15/18 at 08:30 Albuterol/ Ipratropium (Duoneb) 3 ml Q6HWA RESP THERAPY HHN Last administered on 12/15/18at 14:14; Admin Dose 3 ML; Start 12/15/18 at 14:00 Albuterol/ Ipratropium (Duoneb) 3 ml Q2H RESP THERAPY PRN HHN Dyspnea; Start 12/15/18 at 11:00 Arformoterol Tartrate (Brovana (Neb)) 2 ml BID NEB Last administered on 12/15/18at 11:00; Admin Dose 2 ML; Start 12/15/18 at 11:00 Methylprednisolone Sodium Succinate (Solu-Medrol) 60 mg Q8 IV Last administered on 12/15/18at 13:37; Admin Dose 60 MG; Start 12/15/18 at 14:00 Pantoprazole (Protonix Tab) 40 mg BID@,18 PO ; Start 12/15/18 at 18:00 Hydralazine HCl (Apresoline) 10 mg Q6H PRN IV SBP>160; Start 12/15/18 at 11:00 Heparin Sodium (Porcine) (Heparin (5000 Units/1ml)) 5,000 unit Q8 SC Last administered on 12/15/18at 13:48; Admin Dose 5,000 UNIT; Start 12/15/18 at 14:00 Allergies: Coded Allergies: No Known Allergies (Verified Allergy, Mild, 05/06/12) Past Surgical History Past Surgical Hx: coronary bypass surgery Social History Alcohol Use: none Smoking Status: Former smoker Drug Use: none Exam/Review of Systems Vital Signs Vitals Vital Signs Date Temp Pulse Resp B/P (MAP) Pulse Ox O2 O2 Flow FiO2 Time Delivery Rate 12/15/18 67 16:09 12/15/18 97.8 144/65 97 Nasal 15:38 (91) Cannula 12/15/18 3.0 14:21 12/15/18 20 14:10 12/14/18 50 17:55 Intake and Output 12/14/18 12/14/18 12/15/18 1515:00 23:00 07:00 IntakeIntake Total 420 ml 350 ml OutputOutput Total 200 ml BalanceBalance 420 ml 150 ml Exam Exam General: Elderly gentleman appears to be confused and agitated HEENT: NC/AT. pupils are equal. round. NECK: . no stridor. CV: RRR. systolic murmur; no gallop or rubs. PULM: + Diffuse wheezing/ rhonchi. GI: SOFT, NT, ND, no rebound or guarding Extremity: Right lower extremity with lymphedema. Trace left lower extremity edema neuro: awake and alert, Psych: Anxious and agitated at this point rectal: deferred : normal EKG was personally within normal sinus rhythm with right bundle branch block. Septal infarct age undetermined Echocardiogram was personally reviewed which shows: There is moderate enlargement of left atrium. Normal left ventricular systolic function. Normal left ventricular cavity size. Mild concentric left ventricular hypertrophy. Ejection fraction is visually estimated at 55 %. Abnormal Diastolic Function. Normal appearance of the mitral valve. Mild mitral annular calcification. Trace mitral regurgitation. No significant aortic stenosis or insufficiency. Aortic cusps appear mildly calcified. Normal appearance of the tricuspid valve. Estimated peak PA systolic pressure 60 mmHg. There is mild to moderate tricuspid regurgitation. Dilated IVC without respiratory collapse consistent with elevated right atrial pressure. Chest x-ray done 12/06/2018 shows: Mild pulmonary vascular congestion with interstitial edema. Strandy consolidation in both midlung zones laterally can be seen with alveolar edema or infection Labs Result Diagram: 12/15/18 0628 12/15/18 0628 Results 24hrs Laboratory Tests Test 12/14/18 17:56 12/14/18 17:57 12/14/18 17:59 12/14/18 19:32 POC Venous 0.7 Lactate B-Type 20844 H Natriuretic Peptide White Blood Count 12.1 H Red Blood Count 2.99 L Hemoglobin 8.8 L Hematocrit 28.6 L Mean Corpuscular 95.7 Volume Mean Corpuscular 29.4 Hemoglobin Mean Corpuscular 30.8 L Hemoglobin Concen t Red Cell 15.8 H Distribution Width Platelet Count 133 L Mean Platelet 12.5 H Volume Immature 0.900 H Granulocytes % Neutrophils % 88.5 H Lymphocytes % 4.4 L Monocytes % 6.0 Eosinophils % 0.0 Basophils % 0.2 Nucleated Red 0.2 H Blood Cells % Immature 0.110 H Granulocytes # Neutrophils # 10.7 H Lymphocytes # 0.5 L Monocytes # 0.7 Eosinophils # 0.0 Basophils # 0.0 Nucleated Red 0.0 Blood Cells # Prothrombin Time 17.1 H Prothrombin Time 1.3 Ratio INR International 1.38 Normalized Ratio Activated 41.1 H Partial Thrombopl ast Time Sodium Level 145 H Potassium Level 5.2 H Chloride Level 110 Carbon Dioxide 24 Level Anion Gap 11 Blood Urea 94 H Nitrogen Creatinine 3.38 H Est Glomerular Filtrat Rate mL/min Glucose Level 155 Calcium Level 8.3 L Total Bilirubin 0.0 L Direct Bilirubin 0.00 Indirect 0.0 Bilirubin Aspartate Amino 26 Transf (AST/SGOT) Alanine 22 Aminotransferase (ALT/SGPT) Alkaline 133 H Phosphatase Troponin I 0.361 *H 0.402 *H Total Protein 6.5 Albumin 3.6 Globulin 2.90 Albumin/Globulin 1.24 Ratio Test 12/14/18 22:05 12/15/18 00:28 12/15/18 06:28 12/15/18 10:00 Lactic Acid Level 0.8 Troponin I 0.440 *H 0.532 *H White Blood Count 9.2 # Red Blood Count 2.89 L Hemoglobin 8.4 L Hematocrit 27.1 L Mean Corpuscular 93.8 Volume Mean Corpuscular 29.1 Hemoglobin Mean Corpuscular 31.0 L Hemoglobin Concen t Red Cell 15.9 H Distribution Width Platelet Count 132 L Mean Platelet 12.6 H Volume Immature 2.000 H Granulocytes % Neutrophils % Segmented 78 H Neutrophils % (Manual) Band Neutrophils 19 H % (Manual) Lymphocytes % Lymphocytes % 2 L (Manual) Monocytes % Eosinophils % Basophils % Metamyelocytes % 1 H (manual) Nucleated Red 0.0 Blood Cells % Immature 0.180 H Granulocytes # Neutrophils # Neutrophils # 7.3 (Manual) Band Neutrophils 1.7 H # Lymphocytes 0.1 L (Manual) Lymphocytes # Monocytes # Eosinophils # Basophils # Metamyelocytes # 0.0 Nucleated Red Blood Cells # Platelet Estimate DECREASED Polychromasia 1+ Anisocytosis 1+ Sodium Level 146 H Potassium Level 5.6 H Chloride Level 112 H Carbon Dioxide 20 L Level Anion Gap 14 H Blood Urea 97 H Nitrogen Creatinine 3.42 H Est Glomerular Filtrat Rate mL/min Glucose Level 183 Hemoglobin A1c 5.6 Calcium Level 8.1 L Magnesium Level 2.2 Total Bilirubin 0.0 L Direct Bilirubin 0.00 Indirect 0.0 Bilirubin Aspartate Amino 28 Transf (AST/SGOT) Alanine 33 Aminotransferase (ALT/SGPT) Alkaline 153 H Phosphatase Total Protein 5.4 #L Albumin 3.1 L Globulin 2.30 Albumin/Globulin 1.34 Ratio Triglycerides 308 H Level Cholesterol Level 86 L LDL Cholesterol, 14 Calculated HDL Cholesterol 10 L Cholesterol/HDL 8.6 Ratio Thyroid 1.500 Stimulating Hormone (TSH) Urine Color YELLOW Urine Clarity SLIGHTLY CLOUDY A Urine pH 5.0 Urine Specific 1.015 Belding Urine Ketones NEGATIVE Urine Nitrite NEGATIVE Urine Bilirubin NEGATIVE Urine NEGATIVE Urobilinogen Urine Leukocyte NEGATIVE Esterase Urine Microscopic 2 RBC Urine Microscopic 3 WBC Urine Squamous FEW Epithelial Cells Urine Amorphous FEW A Crystals Urine Bacteria FEW A Urine Hyaline FEW A Casts Urine Hemoglobin 2+ H Urine Random < 13 L Sodium Urine Random 41.1 Potassium Urine Glucose NEGATIVE Urine Total 1+ H Protein Test 12/15/18 10:05 12/15/18 10:53 12/15/18 12:59 Ferritin 1550.0 H Iron Level 30 L Total Iron 219 L Binding Capacity Percent Iron 14 L Saturation Creatine Kinase 110 Creatine Kinase 3.9 Index Creatinine Kinase 4.24 H MB (Mass) Troponin I 0.544 *H Medications Medications Current Medications Ondansetron HCl (Zofran Inj) 4 mg ER BRIDGE PRN IV NAUSEA/VOMITING; Start 12/14/18 at 19:30; Stop 12/15/18 at 19:29 Acetaminophen (Tylenol Tab) 650 mg ER BRIDGE PRN PO .MILD PAIN 1-3 OR TEMP; Start 12/14/18 at 19:30; Stop 12/15/18 at 19:29 IV Flush (NS 3 ml) 3 ml PER PROTOCOL IV ; Start 12/14/18 at 19:30 Aspirin (Aspirin) 81 mg DAILY PO Last administered on 12/15/18at 09:26; Admin Dose 81 MG; Start 12/15/18 at 09:00 Nitroglycerin (Nitroglycerin (Sl Tab) 0.4 Mg) 1 tab Q5M PRN SL .CHEST PAIN; Start 12/14/18 at 19:30 Acetaminophen (Tylenol Tab) 650 mg Q6H PRN PO .PAIN 1-3 OR TEMP; Start 12/14/18 at 19:30 Acetaminophen/ Hydrocodone Bitart (Fillmore (5/325)) 1 tab Q6H PRN PO .PAIN 4-6; Start 12/14/18 at 19:30 Morphine Sulfate (morphine) 2 mg Q4H PRN IV .PAIN 7-10; Start 12/14/18 at 19:30 Atorvastatin Calcium (Lipitor) 80 mg HS PO Last administered on 12/14/18at 20:06; Admin Dose 80 MG; Start 12/14/18 at 21:00 Tamsulosin HCl (Flomax) 0.4 mg HS PO ; Start 12/15/18 at 21:00 Furosemide (Lasix) 20 mg BID DIURETICS IV Last administered on 12/15/18at 09:26; Admin Dose 20 MG; Start 12/15/18 at 08:30 Albuterol/ Ipratropium (Duoneb) 3 ml Q6HWA RESP THERAPY HHN Last administered on 12/15/18at 14:14; Admin Dose 3 ML; Start 12/15/18 at 14:00 Albuterol/ Ipratropium (Duoneb) 3 ml Q2H RESP THERAPY PRN HHN Dyspnea; Start 12/15/18 at 11:00 Arformoterol Tartrate (Brovana (Neb)) 2 ml BID NEB Last administered on 12/15/18at 11:00; Admin Dose 2 ML; Start 12/15/18 at 11:00 Methylprednisolone Sodium Succinate (Solu-Medrol) 60 mg Q8 IV Last administered on 12/15/18at 13:37; Admin Dose 60 MG; Start 12/15/18 at 14:00 Pantoprazole (Protonix Tab) 40 mg BID@,18 PO ; Start 12/15/18 at 18:00 Hydralazine HCl (Apresoline) 10 mg Q6H PRN IV SBP>160; Start 12/15/18 at 11:00 Heparin Sodium (Porcine) (Heparin (5000 Units/1ml)) 5,000 unit Q8 SC Last administered on 12/15/18at 13:48; Admin Dose 5,000 UNIT; Start 12/15/18 at 14:00 PIPO GABRIEL MD Dec 15, 2018 17:36
[2018-12-15] MEDS: PANTOPRAZOLE (EC) 40 MG TAB PO SCH (18:04)
[2018-12-15] MEDS: HYDROCODONE/APAP (5/325) TAB PO PRN (18:09)
[2018-12-15] MEDS: ATORVASTATIN 80 MG TAB PO SCH (21:10)
[2018-12-15] MEDS: TAMSULOSIN (SR) 0.4 MG CAP PO SCH (21:10)
--- NOTE | 2018-12-15 21:11 | CONS ---
DATE OF ADMISSION: 12/14/2018 DATE OF CONSULTATION: REASON FOR CONSULTATION: Chronic kidney disease. HISTORY OF PRESENT ILLNESS: This 88-year-old man has a history of chronic kidney disease. The patie nt is a poor historian, but his daughter is in the room with him and she tells me that he has had chr onic kidney disease for years. He is cared for by a dairy department manager in [place], Dr. Alli Rios. The patient's daughter says that the patient was well until last week when he had blood drawn for ent ry into a study using a new oral medication to treat iron deficiency. The patient after that develop ed some generalized weakness and then became more short of breath. His shortness of breath increased and then yesterday he was taken by paramedics here to the hospital. The patient was admitted noemy hernández of congestive heart failure. He was started on IV diuretics and he was diuresing through a Pleitez c atheter. Then, the patient became confused and agitated, and pulled out the Pleitez catheter and now i s complaining of a great deal of pain in the pelvic and penis area. The patient apparently was here in this hospital in 04/2012 and at that time had an elevated BUN of 23 and a serum creatinine of 1.8. On admission here, he did have a renal ultrasound which shows changes consistent with chronic kidne y disease. PAST MEDICAL HISTORY: Remarkable for: 1. COPD. 2. Congestive heart failure, both acute and chronic. 3. Secondary to diastolic heart failure. 4. Hypertension. 5. Dyslipidemia. 6. Coronary artery disease. 7. History of encephalopathy. 8. Anemia. PAST SURGICAL HISTORY: The patient has the following past surgical history: 1. Coronary artery bypass grafting. 2. History of percutaneous intervention. SOCIAL HISTORY: The patient does not drink alcohol. He is a former smoker but has not smoked in 40 years. CURRENT MEDICATIONS: Include the followin. Tamsulosin 0.4 mg at bedtime. 2. Pantoprazole 40 mg twice a day. 3. DuoNeb q.6h. p.r.n. 4. Methylprednisolone 60 mg IV q.8h. 5. Heparin 5000 units q.8h. subq. 6. Brovana nebulizer. 7. Hydralazine p.r.n. for elevated blood pressure. 8. Aspirin 81 mg a day. 9. Furosemide 20 mg IV b.i.d. 10. Atorvastatin 80 mg at bedtime. 11. Zofran 4 mg IV q.6h. p.r.n. 12. Acetaminophen. 13. Morphine sulfate 2 mg IV q.4h. p.r.n. PHYSICAL EXAMINATION: GENERAL: At this time reveals an elderly man who is complaining of pain in the pelvic area. VITAL SIGNS: Temperature 97.8, pulse is 66, blood pressure 144/65, O2 saturation 97% on 3 liter nasa l cannula. HEENT: Head normocephalic. Eyes: Extraocular muscles intact. NOSE AND MOUTH: Normal. NECK: Supple. No neck vein distention. LUNGS: Diminished breath sounds bilaterally. No rales or wheezes. HEART: Regular rhythm. No murmurs, gallops or rubs. There is a well-healed midline chest scar from surgery. ABDOMEN: Soft, nontender, no masses or megaly. EXTREMITIES: He has severe lymphedema of the right leg. He has trace to +1 pretibial edema of the l eft leg. LABORATORY TESTS: Done today, hemoglobin 8.4, hematocrit 27.1. White blood count 9200. Sodium 146, potassium 5.6, chloride 112, CO2 of 20, BUN 97, creatinine 3.42, calcium 8.1, alkaline phosphatase 1 53, albumin 3.1. Troponin 0.544. IMAGING STUDIES: Renal ultrasound shows increased bilateral renal cortical echogenicity suggesting m edical renal disease, mild bilateral renal cortical thinning. Doppler images demonstrate decreased c olor flow to both kidneys suggestive of arterial stenosis, simple bilateral renal cysts. IMPRESSION: Chronic kidney disease. This patient apparently has had chronic kidney disease since at least 2011 when he had an elevated serum creatinine of 1.8. He is followed by a dairy department manager in [facility]. Apparently, the patient was going to start a study for getting oral iron treatment and had bl ood drawn which the daughter says triggered his current symptoms of generalized weakness and increasi ng shortness of breath. The patient's chest x-ray does show mild pulmonary vascular chest chin and i nterstitial edema. 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 The patient was diuresing prior to pulling out his Pleitez amy ter. He will have a urologist see him. PLAN: 1. Continue current medical management. 2. I did discuss the patient's current situation with his daughter. I did tell her that his renal f unction was markedly decreased and he could require dialysis. She said that he did not want him to h ave dialysis at this time and that, hopefully, we can treat him medically before that would be necess jones. He has been followed by dairy department manager in [place]. 3. Urology to see the patient because of current pelvic and penis pain after pulling out Pleitez amy ter. 4. I will follow the patient along with you. Dictated By: MEENA NASH MD ND/NTS Conf#: [id number] DID#: [id number] CC: LAUREN NELSON MD;*End*
--- NOTE | 2018-12-15 21:36 | CONS ---
Assessment/Plan Assessment/Plan Hospital Course (Demo Recall) 88-year-old male known to have a history of chronic kidney disease, benign prostatic hypertrophy, and history of coronary artery disease was admitted to the hospital because of congestive heart failure. His troponin were elevated. He had an indwelling Pleitez catheter which he pulled accidentally causing him to bleed. Therefore a urological consultation was requested. I did review his re cords, but the history and physical as well as the consultations on him. I did first catheterize the patient with a 16 [place] catheter but that did not drain well and the bladder remained distended then I tried to use a 22 [place] three-way Pleitez catheter and that would not go into the bladder. Then I did use a 20 [place] coud catheter and that did go to the bladder well and I did drain the bladder he became more comfortable. I irrigated any clots out of the bladder but his urine remained blood-tinged and that would be related to his anticoagulation and the trauma from pulling out the catheter before. Therefore I would keep the Pleitez catheter in and hand irrigate it as needed. Continue the tamsulosin and add finasteride. Consultation Date/Type/Reason Admit Date/Time Dec 14, 2018 at 19:05 Date of Consultation: Dec 15, 2018 Type of Consult Urology Reason for Consultation Gross hematuria following pulling out his Pleitez catheter Requesting Provider: MEENA NSAH MD Date/Time of Note DATE: 12/15/18 TIME: 21:22 Hx of Present Illness 88-year-old male known to have a history of chronic kidney disease, benign prostatic hypertrophy, and history of coronary artery disease was admitted to the hospital because of congestive heart failure. His troponin were elevated. He had an indwelling Pleitez catheter which he pulled accidentally causing him to bleed. Therefore a urological consultation was requested. I did review his records, but the history and physical as well as the consultations on him. Constitutional: no complaints Eyes: no complaints ENT: no complaints Respiratory: shortness of breath, wheezing Cardiovascular: chest pain (Chest tightness) Gastrointestinal: No nausea, No vomiting Genitourinary: bleeding, hematuria Musculoskeletal: no complaints Skin: no complaints Neurologic: confusion Endocrine: no complaints Lymphatic: no complaints Psychological: no complaints Past Medical History Medical History: congestive heart failure, coronary artery disease, high cholesterol, hypertension, renal disease, other (COPD and anemia) Home Meds Reported Medications Fenofibrate Nanocrystallized* (Tricor*) 145 Mg Tablet 09/19/10 Azithromycin* (Zithromax*) 250 Mg Tablet 09/19/10 Rosuvastatin Calcium* (Crestor*) 20 Mg Tablet 09/19/10 Dicyclomine Hcl* (Bentyl*) 20 Mg Tablet 09/19/10 Clopidogrel Bisulfate (Plavix) 75 Mg Tablet 09/19/10 Rabeprazole Sodium* (Aciphex*) 20 Mg Tablet. 09/19/10 Terazosin Hcl* (Terazosin Hcl*) 5 Mg Capsule 09/19/10 Aspirin (Adult Low Dose Aspirin) 81 Mg Tablet. 09/19/10 Furosemide (Lasix) 40 Mg Tab 09/19/10 Medications Current Medications IV Flush (NS 3 ml) 3 ml PER PROTOCOL IV ; Start 12/14/18 at 19:30 Aspirin (Aspirin) 81 mg DAILY PO Last administered on 12/15/18at 09:26; Admin Dose 81 MG; Start 12/15/18 at 09:00 Nitroglycerin (Nitroglycerin (Sl Tab) 0.4 Mg) 1 tab Q5M PRN SL .CHEST PAIN; Start 12/14/18 at 19:30 Acetaminophen (Tylenol Tab) 650 mg Q6H PRN PO .PAIN 1-3 OR TEMP; Start 12/14/18 at 19:30 Acetaminophen/ Hydrocodone Bitart ([place] (5/325)) 1 tab Q6H PRN PO .PAIN 4-6 Last administered on 12/15/18at 18:09; Admin Dose 1 TAB; Start 12/14/18 at 19:30 Morphine Sulfate (morphine) 2 mg Q4H PRN IV .PAIN 7-10; Start 12/14/18 at 19:30 Atorvastatin Calcium (Lipitor) 80 mg HS PO Last administered on 12/15/18at 21:10; Admin Dose 80 MG; Start 12/14/18 at 21:00 Tamsulosin HCl (Flomax) 0.4 mg HS PO Last administered on 12/15/18at 21:10; Admin Dose 0.4 MG; Start 12/15/18 at 21:00 Furosemide (Lasix) 20 mg BID DIURETICS IV Last administered on 12/15/18 09:26; Admin Dose 20 MG; Start 12/15/18 at 08:30 Albuterol/ Ipratropium (Duoneb) 3 ml Q6HWA RESP THERAPY HHN Last administered on 12/15/18at 14:14; Admin Dose 3 ML; Start 12/15/18 at 14:00 Albuterol/ Ipratropium (Duoneb) 3 ml Q2H RESP THERAPY PRN HHN Dyspnea; Start 12/15/18 at 11:00 Arformoterol Tartrate (Brovana (Neb)) 2 ml BID NEB Last administered on 12/15/18at 11:00; Admin Dose 2 ML; Start 12/15/18 at 11:00 Methylprednisolone Sodium Succinate (Solu-Medrol) 60 mg Q8 IV Last administered on 12/15/18at 21:10; Admin Dose 60 MG; Start 12/15/18 at 14:00 Pantoprazole (Protonix Tab) 40 mg BID@06,18 PO Last administered on 12/15/18at 18:04; Admin Dose 40 MG; Start 12/15/18 at 18:00 Hydralazine HCl (Apresoline) 10 mg Q6H PRN IV SBP>160; Start 12/15/18 at 11:00 Ferric Sodium Gluconate Complex 125 mg/Sodium Chloride 110 ml @ 110 mls/hr DAILY@1300 IVPB ; Start 12/16/18 at 13:00; Stop 12/20/18 at 13:59 Epoetin David-epbx (RETACRIT(esrd)) 10,000 unit MoWeFr@1700 SC ; Start 12/17/18 at 17:00 Allergies: Coded Allergies: No Known Allergies (Verified Allergy, Mild, 05/06/12) Past Surgical History Past Surgical Hx: coronary bypass surgery Social History Alcohol Use: none Smoking Status: Former smoker Drug Use: none Exam/Review of Systems Exam Vitals Vital Signs Date Temp Pulse Resp B/P (MAP) Pulse Ox O2 O2 Flow FiO2 Time Delivery Rate 12/15/18 76 20:00 12/15/18 Nasal 2.0 19:59 Cannula 12/15/18 97.9 19 185/81 100 19:58 (115) 12/14/18 50 17:55 Intake and Output 12/14/18 12/14/18 12/15/18 1515:00 23:00 07:00 IntakeIntake Total 420 ml 350 ml OutputOutput Total 200 ml BalanceBalance 420 ml 150 ml Constitutional: alert Psych: no complaints Head: normocephalic Eyes: nl conjunctiva ENMT: nl external ears & nose Neck: supple Respiratory: wheezing Gastrointestinal: soft, non-tender Genitourinary - Male: nl penis, nl scrotum, other (Bleeding from the urethra) Musculoskeletal: other (Lymphedema of the right lower extremity) Extremities: No calf tenderness Neurological: nl mental status Skin: nl turgor Results Result Diagram: 12/15/18 0628 12/15/18 0628 Results 24hrs Laboratory Tests Test 12/14/18 22:05 12/15/18 00:28 12/15/18 06:28 12/15/18 10:00 Lactic Acid Level 0.8 Troponin I 0.440 *H 0.532 *H White Blood Count 9.2 # Red Blood Count 2.89 L Hemoglobin 8.4 L Hematocrit 27.1 L Mean Corpuscular 93.8 Volume Mean Corpuscular 29.1 Hemoglobin Mean Corpuscular 31.0 L Hemoglobin Concen t Red Cell 15.9 H Distribution Width Platelet Count 132 L Mean Platelet 12.6 H Volume Immature 2.000 H Granulocytes % Neutrophils % Segmented 78 H Neutrophils % (Manual) Band Neutrophils 19 H % (Manual) Lymphocytes % Lymphocytes % 2 L (Manual) Monocytes % Eosinophils % Basophils % Metamyelocytes % 1 H (manual) Nucleated Red 0.0 Blood Cells % Immature 0.180 H Granulocytes # Neutrophils # Neutrophils # 7.3 (Manual) Band Neutrophils 1.7 H # Lymphocytes 0.1 L (Manual) Lymphocytes # Monocytes # Eosinophils # Basophils # Metamyelocytes # 0.0 Nucleated Red Blood Cells # Platelet Estimate DECREASED Polychromasia 1+ Anisocytosis 1+ Sodium Level 146 H Potassium Level 5.6 H Chloride Level 112 H Carbon Dioxide 20 L Level Anion Gap 14 H Blood Urea 97 H Nitrogen Creatinine 3.42 H Est Glomerular Filtrat Rate mL/min Glucose Level 183 Hemoglobin A1c 5.6 Calcium Level 8.1 L Magnesium Level 2.2 Total Bilirubin 0.0 L Direct Bilirubin 0.00 Indirect 0.0 Bilirubin Aspartate Amino 28 Transf (AST/SGOT) Alanine 33 Aminotransferase (ALT/SGPT) Alkaline 153 H Phosphatase Total Protein 5.4 #L Albumin 3.1 L Globulin 2.30 Albumin/Globulin 1.34 Ratio Triglycerides 308 H Level Cholesterol Level 86 L LDL Cholesterol, 14 Calculated HDL Cholesterol 10 L Cholesterol/HDL 8.6 Ratio Thyroid 1.500 Stimulating Hormone (TSH) Urine Color YELLOW Urine Clarity SLIGHTLY CLOUDY A Urine pH 5.0 Urine Specific 1.015 [place] Urine Ketones NEGATIVE Urine Nitrite NEGATIVE Urine Bilirubin NEGATIVE Urine NEGATIVE Urobilinogen Urine Leukocyte NEGATIVE Esterase Urine Microscopic 2 RBC Urine Microscopic 3 WBC Urine Squamous FEW Epithelial Cells Urine Amorphous FEW A Crystals Urine Bacteria FEW A Urine Hyaline FEW A Casts Urine Hemoglobin 2+ H Urine Random < 13 L Sodium Urine Random 41.1 Potassium Urine Glucose NEGATIVE Urine Total 1+ H Protein Test 12/15/18 10:05 12/15/18 10:53 12/15/18 12:59 Ferritin 1550.0 H Iron Level 30 L Total Iron 219 L Binding Capacity Percent Iron 14 L Saturation Creatine Kinase 110 Creatine Kinase 3.9 Index Creatinine Kinase 4.24 H MB (Mass) Troponin I 0.544 *H Imaging Imaging Renal ultrasound: 1. No evidence of renal calculi or obstructive uropathy. 2. Increased bilateral renal cortical echogenicity suggest medical renal disease. 3. Mild bilateral renal cortical thinning. 4. Doppler images demonstrate decreased color flow to both kidneys. This may suggest arterial stenosis 5. Simple bilateral renal cysts Medications Medication Current Medications IV Flush (NS 3 ml) 3 ml PER PROTOCOL IV ; Start 12/14/18 at 19:30 Aspirin (Aspirin) 81 mg DAILY PO Last administered on 12/15/18at 09:26; Admin Dose 81 MG; Start 12/15/18 at 09:00 Nitroglycerin (Nitroglycerin (Sl Tab) 0.4 Mg) 1 tab Q5M PRN SL .CHEST PAIN; Start 12/14/18 at 19:30 Acetaminophen (Tylenol Tab) 650 mg Q6H PRN PO .PAIN 1-3 OR TEMP; Start 12/14/18 at 19:30 Acetaminophen/ Hydrocodone Bitart ([place] (5/325)) 1 tab Q6H PRN PO .PAIN 4-6 Last administered on 12/15/18at 18:09; Admin Dose 1 TAB; Start 12/14/18 at 19:30 Morphine Sulfate (morphine) 2 mg Q4H PRN IV .PAIN 7-10; Start 12/14/18 at 19:30 Atorvastatin Calcium (Lipitor) 80 mg HS PO Last administered on 12/15/18at 21:10; Admin Dose 80 MG; Start 12/14/18 at 21:00 Tamsulosin HCl (Flomax) 0.4 mg HS PO Last administered on 12/15/18 21:10; Admin Dose 0.4 MG; Start 12/15/18 at 21:00 Furosemide (Lasix) 20 mg BID DIURETICS IV Last administered on 12/15/18 09:2 6; Admin Dose 20 MG; Start 12/15/18 at 08:30 Albuterol/ Ipratropium (Duoneb) 3 ml Q6HWA RESP THERAPY HHN Last administered on 12/15/18 14:14; Admin Dose 3 ML; Start 12/15/18 at 14:00 Albuterol/ Ipratropium (Duoneb) 3 ml Q2H RESP THERAPY PRN HHN Dyspnea; Start 12/15/18 at 11:00 Arformoterol Tartrate (Brovana (Neb)) 2 ml BID NEB Last administered on 12/15/18 11:00; Admin Dose 2 ML; Start 12/15/18 at 11:00 Methylprednisolone Sodium Succinate (Solu-Medrol) 60 mg Q8 IV Last administered on 12/15/18 21:10; Admin Dose 60 MG; Start 12/15/18 at 14:00 Pantoprazole (Protonix Tab) 40 mg BID@06,18 PO Last administered on 12/15/18 18:04; Admin Dose 40 MG; Start 12/15/18 at 18:00 Hydralazine HCl (Apresoline) 10 mg Q6H PRN IV SBP>160; Start 12/15/18 at 11:00 Ferric Sodium Gluconate Complex 125 mg/Sodium Chloride 110 ml @ 110 mls/hr DAILY@1300 IVPB ; Start 12/16/18 at 13:00; Stop 12/20/18 at 13:59 Epoetin David-epbx (RETACRIT(esrd)) 10,000 unit MoWeFr@1700 SC ; Start 12/17/18 at 17:00 THIERRY URIARTE MD Dec 15, 2018 21:33
[2018-12-15] MEDS: morphine 2 MG INJ IV PRN (23:18)
[2018-12-15] MEDS ORDERED: EPOETIN ALFA-EPBX (ESRD) 10,000 UNIT/ML VIAL SC ONE (23:30)
[2018-12-16] VITALS (11 sets, daily range): BP systolic 135–170; BP diastolic 57–74; PULSE 64–86; RESP 17–20
[2018-12-16] MEDS: METHYLPREDNISOLONE 125 MG INJ IV SCH (05:47)
[2018-12-16] MEDS: FUROSEMIDE 20 MG INJ IV SCH (05:48)
[2018-12-16] MEDS: PANTOPRAZOLE (EC) 40 MG TAB PO SCH ×2 (05:52→18:01)
[2018-12-16] MEDS: FINASTERIDE 5 MG TAB PO SCH (08:55)
[2018-12-16] MEDS: ASPIRIN 81 MG TAB PO SCH (08:55)
[2018-12-16] MEDS: ARFORMOTEROL TARTRATE 15MCG/2 ML AMP NEB SCH ×2 (10:13→22:13)
[2018-12-16] MEDS: ALBUTEROL/IPRATROPIUM (NEB) 3 ML AMP HHN SCH ×3 (10:15→22:13)
[2018-12-16] MEDS ORDERED: SOD CHLORIDE 0.9% 250 ML IV* ONE (10:18)
--- NOTE | 2018-12-16 10:29 | PN ---
Date/Time of Note Date/Time of Note DATE: 12/16/18 TIME: 10:21 Assessment/Plan VTE [place] [facility] [place]: 7 [place] [facility] [place] SCD contraindicated: other Pharmacological prophylaxis: NA/contraindicated Pharm contraindication: bleeding Lines/Catheters IV [facility] Saline Lock Urinary Cath still in place: No Assessment/Plan Hospital Course SUBJECTIVE: Continues to complain of dyspnea. Denies any chest pain. OBJECTIVE: Physical Exam General: Obese, 88 year-old female lying in bed in mild to moderate respiratory distress. HEENT: Normocephalic, atraumatic. Eyes: Anicteric sclerae, conjunctivae clear. ENT: Nasal septum midline, oral mucosa moist. Neck supple. Respiratory: Bilaterally diminished breath sounds. Use of accessory muscles of respiration. Bilateral expiratory wheezing. Cardiovascular: S1, S2 heard. Regular rate and rhythm. Abdomen: Soft, nontender, and nondistended. Bowel sounds positive in all 4 quadrants. Genitourinary: Gross hematuria. Extremities: No cyanosis, no clubbing. Bilateral lower extremity edema. Right lower extremity edema greater than the left. Neurologic: Cranial nerves II through XII grossly intact. The patient is awake, alert, and oriented. Labs & Vitals per chart ASSESSMENT & PLAN 88-year-old male with comorbidities including CAD status post CABG, dyslipidemia, obesity, chronic kidney disease, prostate hypertrophy, and hypertension, who came to the emergency room with chief complaint of dyspnea and wheezing that has been progressively getting worse. Patient was also noticed to have elevated troponins in the emergency room. The patient's chest x-ray was showing evidence of mild pulmonary vascular congestion with interstitial edema. The patient was admitted to inpatient setting for further treatment and evaluation. 1. Acute respiratory failure. -Hypoxic. -Most probably secondary to underlying reactive airway disease and CHF exacerbation. -Continue inhaled bronchodilators ADIA and LABA. -Continue tapering dose of steroids. -Continue diuresis as renal function allows. 2. Suspect COPD. -Remote history of smoking over years. -Continue inhaled bronchodilators ADIA and LABA. -Continue tapering dose of steroids. -Pulmonology following. 3. NSTEMI. -Known history of CAD, status post CABG. -Continue aspirin. -Continue high-dose statins. -Cardiology following. -Patient/family refusing left heart cath. 4. Acute on chronic kidney disease. -Nephrology following. 5. Benign prostatic hypertrophy. -Continue tamsulosin. 6. Hypertension. -Blood pressure well controlled off antihypertensives. 7. Dyslipidemia. -Continue statins. 8. Hematuria from traumatic pulling of Pleitez catheter by the patient. -Being followed by Urology. 9. Normocytic anemia -Etiology could be multifactorial including the acute blood loss from traumatic pulling of the Pleitez. -Transfuse blood products as indicated. 10. Chronic right lower extremity lymphedema. -Venous Doppler negative for any DVT. 11. CHF exacerbation. -Diastolic dysfunction. -Continue diuresis as renal function allows. 12. Pulmonary hypertension. -PA pressure of 60 mm Hg. -Continue supplemental O2. 13. Fluids, electrolytes, and nutrition. -Renal diet. 14. DVT prophylaxis. -B/L SCDs. 15. Plan. -Continue inhaled bronchodilators and tapering dose of steroids. -Continue inpatient monitoring. -Transfuse PRBC. -Await clinical improvement. The patient was seen in collaboration with . Result Diagram: 12/16/18 0709 12/16/18 0709 Results 24hrs Laboratory Tests Test 12/15/18 10:53 12/15/18 12:59 12/15/18 21:01 12/16/18 00:21 Iron Level 30 L Total Iron Binding 219 L Capacity Percent Iron 14 L Saturation Creatine Kinase 110 137 Creatine Kinase 3.9 4.0 Index Creatinine Kinase MB 4.24 H 5.49 H (Mass) Troponin I 0.544 *H 0.576 *H Hemoglobin 7.5 L Hematocrit 23.5 L Test 12/16/18 00:23 12/16/18 07:09 Creatine Kinase 130 Creatine Kinase 4.0 Index Creatinine Kinase MB 5.20 H (Mass) Troponin I 0.585 *H White Blood Count 14.5 #H Red Blood Count 2.39 L Hemoglobin 7.0 L Hematocrit 22.1 L Mean Corpuscular 92.5 Volume Mean Corpuscular 29.3 Hemoglobin Mean Corpuscular 31.7 L Hemoglobin Concent Red Cell 15.8 H Distribution Width Platelet Count 159 # Mean Platelet Volume 12.3 H Immature 4.100 H Granulocytes % Neutrophils % 88.5 H Lymphocytes % 3.4 L Monocytes % 3.9 Eosinophils % 0.0 Basophils % 0.1 Nucleated Red Blood 0.0 Cells % Immature 0.600 H Granulocytes # Neutrophils # 12.9 H Lymphocytes # 0.5 L Monocytes # 0.6 Eosinophils # 0.0 Basophils # 0.0 Nucleated Red Blood 0.0 Cells # Sodium Level 146 H Potassium Level 5.0 Chloride Level 110 Carbon Dioxide Level 23 Anion Gap 13 Blood Urea Nitrogen 114 H Creatinine 3.68 H Est Glomerular Filtrat Rate mL/min Glucose Level 170 Calcium Level 8.0 L Phosphorus Level 5.9 H Magnesium Level 2.0 Exam/Review of Systems Exam Vitals Vital Signs Date Temp Pulse Resp B/P (MAP) Pulse Ox O2 O2 Flow FiO2 Time Delivery Rate 12/16/18 75 08:00 12/16/18 Nasal 2.0 07:31 Cannula 12/16/18 97.4 20 152/68 94 07:24 (96) 12/14/18 50 17:55 Intake and Output 12/15/18 12/15/18 12/16/18 1515:00 23:00 07:00 IntakeIntake Total 200 ml 500 ml OutputOutput Total 950 ml 1500 ml BalanceBalance -750 ml -1000 ml Results Results 24hrs Laboratory Tests Test 12/15/18 10:53 12/15/18 12:59 12/15/18 21:01 12/16/18 00:21 Iron Level 30 L Total Iron Binding 219 L Capacity Percent Iron 14 L Saturation Creatine Kinase 110 137 Creatine Kinase 3.9 4.0 Index Creatinine Kinase MB 4.24 H 5.49 H (Mass) Troponin I 0.544 *H 0.576 *H Hemoglobin 7.5 L Hematocrit 23.5 L Test 12/16/18 00:23 12/16/18 07:09 Creatine Kinase 130 Creatine Kinase 4.0 Index Creatinine Kinase MB 5.20 H (Mass) Troponin I 0.585 *H White Blood Count 14.5 #H Red Blood Count 2.39 L Hemoglobin 7.0 L Hematocrit 22.1 L Mean Corpuscular 92.5 Volume Mean Corpuscular 29.3 Hemoglobin Mean Corpuscular 31.7 L Hemoglobin Concent Red Cell 15.8 H Distribution Width Platelet Count 159 # Mean Platelet Volume 12.3 H Immature 4.100 H Granulocytes % Neutrophils % 88.5 H Lymphocytes % 3.4 L Monocytes % 3.9 Eosinophils % 0.0 Basophils % 0.1 Nucleated Red Blood 0.0 Cells % Immature 0.600 H Granulocytes # Neutrophils # 12.9 H Lymphocytes # 0.5 L Monocytes # 0.6 Eosinophils # 0.0 Basophils # 0.0 Nucleated Red Blood 0.0 Cells # Sodium Level 146 H Potassium Level 5.0 Chloride Level 110 Carbon Dioxide Level 23 Anion Gap 13 Blood Urea Nitrogen 114 H Creatinine 3.68 H Est Glomerular Filtrat Rate mL/min Glucose Level 170 Calcium Level 8.0 L Phosphorus Level 5.9 H Magnesium Level 2.0 Medications Medication Current Medications IV Flush (NS 3 ml) 3 ml PER PROTOCOL IV ; Start 12/14/18 at 19:30 Aspirin (Aspirin) 81 mg DAILY PO Last administered on 12/16/18 08:55; Admin Dose 81 MG; Start 12/15/18 at 09:00 Nitroglycerin (Nitroglycerin (Sl Tab) 0.4 Mg) 1 tab Q5M PRN SL .CHEST PAIN; Start 12/14/18 at 19:30 Acetaminophen (Tylenol Tab) 650 mg Q6H PRN PO .PAIN 1-3 OR TEMP; Start 12/14/18 at 19:30 Acetaminophen/ Hydrocodone Bitart ([place] (5/325)) 1 tab Q6H PRN PO .PAIN 4-6 Last administered on 12/15/18 18:09; Admin Dose 1 TAB; Start 12/14/18 at 19:30 Morphine Sulfate (morphine) 2 mg Q4H PRN IV .PAIN 7-10 Last administered on 12/15/18 23:18; Admin Dose 2 MG; Start 12/14/18 at 19:30 Atorvastatin Calcium (Lipitor) 80 mg HS PO Last administered on 12/15/18 21:10; Admin Dose 80 MG; Start 12/14/18 at 21:00 Tamsulosin HCl (Flomax) 0.4 mg HS PO Last administered on 12/15/18 21:10; Admin Dose 0.4 MG; Start 12/15/18 at 21:00 Furosemide (Lasix) 20 mg BID DIURETICS IV Last administered on 12/16/18 05:48; Admin Dose 20 MG; Start 12/15/18 at 08:30 Albuterol/ Ipratropium (Duoneb) 3 ml Q6HWA RESP THERAPY HHN Last administered on 12/16/18 10:15; Admin Dose 3 ML; Start 12/15/18 at 14:00 Albuterol/ Ipratropium (Duoneb) 3 ml Q2H RESP THERAPY PRN HHN Dyspnea; Start 12/15/18 at 11:00 Arformoterol Tartrate (Brovana (Neb)) 2 ml BID NEB Last administered on 12/16/18at 10:13; Admin Dose 2 ML; Start 12/15/18 at 11:00 Methylprednisolone Sodium Succinate (Solu-Medrol) 60 mg Q8 IV Last administered on 12/16/18at 05:47; Admin Dose 60 MG; Start 12/15/18 at 14:00 Pantoprazole (Protonix Tab) 40 mg BID@06,18 PO Last administered on 12/16/18at 05:52; Admin Dose 40 MG; Start 12/15/18 at 18:00 Hydralazine HCl (Apresoline) 10 mg Q6H PRN IV SBP>160; Start 12/15/18 at 11:00 Ferric Sodium Gluconate Complex 125 mg/Sodium Chloride 110 ml @ 110 mls/hr DAILY@1300 IVPB ; Start 12/16/18 at 13:00; Stop 12/20/18 at 13:59 Epoetin David-epbx (RETACRIT(esrd)) 10,000 unit MoWeFr@1700 SC ; Start 12/17/18 at 17:00 Finasteride (Proscar) 5 mg DAILY PO Last administered on 12/16/18at 08:55; Admin Dose 5 MG; Start 12/16/18 at 09:00 GAMA MUNROE NP Dec 16, 2018 10:29
--- NOTE | 2018-12-16 11:34 | CONS ---
Assessment/Plan Assessment/Plan Assessment/Plan (Daily) Chest x-ray showing bilateral pulmonary edema. Assessment and recommendations; 1. Patient admitted with NSTEMI with CHF and pulmonary edema. Clinically improving. 2. Chronic renal insufficiency. 3. History of BPH, COPD, prior CABG, 4. Anemia and thrombocytopenia. Continue current supportive care. Obtain follow-up chest x-ray. Decrease Solu- Medrol to 40 mg every 12 hours with discontinuation in 24 hours. Further recommendations per addiction treatment counselor. Family has declined coronary angiography due to history of renal failure and risk of going on hemodialysis after contrast injury. Consultation Date/Type/Reason Admit Date/Time Dec 14, 2018 at 19:05 Date of Consultation: Dec 16, 2018 Type of Consult Pulmonary Patient is a pleasant 88-year-old male who was admitted to the hospital with complaints of shortness of breath going on for the past 2 days prior to admission. Patient denies having any chest pain. Upon evaluation further work- up was done including a chest x-ray which is showing pulmonary edema with elevation in troponin as well as significant elevation in BNP level. Patient has been started on diuretic regimen. Coronary angiography was discussed with the patient by the addiction treatment counselor however because of history of chronic renal insufficiency the family declined owing to risk of going on hemodialysis due to contrast injury. Patient has improved since admission and denies any further shortness of breath. Denies any coughing, fever, chest pain, angina. Any wheezing. By the time I saw him in the room patient appeared very comfortable and did not appear to be in any distress whatsoever. Past medical history; 1. Chronic renal insufficiency 2. History of prior CABG 3. Hypertension 4. COPD 5. Anemia 6. BPH 7. CHF Medications; reviewed Allergies; none Social history; patient does have a history of smoking. Family history; noncontributory. Patient does have a supportive family. 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 Review of systems; denies any headache, visual changes, sinus symptoms. Shortness of breath has improved. Denies any chest pain, angina any wheezing, sputum production or hemoptysis. Denies any fever or chills. Denies any abdominal pain, nausea vomiting. Any melena or hematochezia. Does complain of chronic frequency and urgency of urination. Denies any orthopnea. Any weight loss. General exam; elderly male, laying comfortably in bed. Awake and alert. Currently in no distress. Date/Time of Note DATE: 12/16/18 TIME: 11:28 Past Medical History Medical History: congestive heart failure, coronary artery disease, high cholesterol, hypertension, renal disease, other (COPD and anemia) Home Meds Reported Medications Fenofibrate Nanocrystallized* (Tricor*) 145 Mg Tablet 09/19/10 Azithromycin* (Zithromax*) 250 Mg Tablet 09/19/10 Rosuvastatin Calcium* (Crestor*) 20 Mg Tablet 09/19/10 Dicyclomine Hcl* (Bentyl*) 20 Mg Tablet 09/19/10 Clopidogrel Bisulfate (Plavix) 75 Mg Tablet 09/19/10 Rabeprazole Sodium* (Aciphex*) 20 Mg Tablet. 09/19/10 Terazosin Hcl* (Terazosin Hcl*) 5 Mg Capsule 09/19/10 Aspirin (Adult Low Dose Aspirin) 81 Mg Tablet. 09/19/10 Furosemide (Lasix) 40 Mg Tab 09/19/10 Medications Current Medications IV Flush (NS 3 ml) 3 ml PER PROTOCOL IV ; Start 12/14/18 at 19:30 Aspirin (Aspirin) 81 mg DAILY PO Last administered on 12/16/18at 08:55; Admin Dose 81 MG; Start 12/15/18 at 09:00 Nitroglycerin (Nitroglycerin (Sl Tab) 0.4 Mg) 1 tab Q5M PRN SL .CHEST PAIN; Start 12/14/18 at 19:30 Acetaminophen (Tylenol Tab) 650 mg Q6H PRN PO .PAIN 1-3 OR TEMP; Start 12/14/18 at 19:30 Acetaminophen/ Hydrocodone Bitart ([place] (5/325)) 1 tab Q6H PRN PO .PAIN 4-6 Last administered on 12/15/18at 18:09; Admin Dose 1 TAB; Start 12/14/18 at 19:30 Morphine Sulfate (morphine) 2 mg Q4H PRN IV .PAIN 7-10 Last administered on 12/15/18at 23:18; Admin Dose 2 MG; Start 12/14/18 at 19:30 Atorvastatin Calcium (Lipitor) 80 mg HS PO Last administered on 12/15/18at 21:10; Admin Dose 80 MG; Start 12/14/18 at 21:00 Tamsulosin HCl (Flomax) 0.4 mg HS PO Last administered on 12/15/18at 21:10; Admin Dose 0.4 MG; Start 12/15/18 at 21:00 Furosemide (Lasix) 20 mg BID DIURETICS IV Last administered on 12/16/18at 05:48; Admin Dose 20 MG; Start 12/15/18 at 08:30 Albuterol/ Ipratropium (Duoneb) 3 ml Q6HWA RESP THERAPY HHN Last administered on 12/16/18at 10:15; Admin Dose 3 ML; Start 12/15/18 at 14:00 Albuterol/ Ipratropium (Duoneb) 3 ml Q2H RESP THERAPY PRN HHN Dyspnea; Start 12/15/18 at 11:00 Arformoterol Tartrate (Brovana (Neb)) 2 ml BID NEB Last administered on 12/16/18at 10:13; Admin Dose 2 ML; Start 12/15/18 at 11:00 Methylprednisolone Sodium Succinate (Solu-Medrol) 60 mg Q8 IV Last administered on 12/16/18at 05:47; Admin Dose 60 MG; Start 12/15/18 at 14:00 Pantoprazole (Protonix Tab) 40 mg BID@06,18 PO Last administered on 12/16/18at 05:52; Admin Dose 40 MG; Start 12/15/18 at 18:00 Hydralazine HCl (Apresoline) 10 mg Q6H PRN IV SBP>160; Start 12/15/18 at 11:00 Ferric Sodium Gluconate Complex 125 mg/Sodium Chloride 110 ml @ 110 mls/hr DAILY@1300 IVPB ; Start 12/16/18 at 13:00; Stop 12/20/18 at 13:59 Epoetin David-epbx (RETACRIT(esrd)) 10,000 unit MoWeFr@1700 SC ; Start 12/17/18 at 17:00 Finasteride (Proscar) 5 mg DAILY PO Last administered on 12/16/18at 08:55; Admin Dose 5 MG; Start 12/16/18 at 09:00 Allergies: Coded Allergies: No Known Allergies (Verified Allergy, Mild, 05/06/12) Past Surgical History Past Surgical Hx: coronary bypass surgery Social History Alcohol Use: none Smoking Status: Former smoker Drug Use: none Exam/Review of Systems Exam Vitals Vital Signs Date Temp Pulse Resp B/P (MAP) Pulse Ox O2 O2 Flow FiO2 Time Delivery Rate 12/16/18 97.8 80 20 138/57 98 11:11 (84) 12/16/18 Nasal 3.0 10:08 Cannula 12/14/18 50 17:55 Intake and Output 12/15/18 12/15/18 12/16/18 1515:00 23:00 07:00 IntakeIntake Total 200 ml 500 ml OutputOutput Total 950 ml 1500 ml BalanceBalance -750 ml -1000 ml Exam H EENT exam; supple neck, positive JVD. No lymphadenopathy. Midline trachea. No thyromegaly. Patient does have multiple carious teeth. Chest exam; diminished breath sounds bilaterally. No added sounds. S1-S2 audible, no murmurs. Regular rhythm. There is a well-healed sternal scar. Abdomen exam; soft, protuberant. Nontender. No organomegaly. Bowel sounds are audible. Extremity exam; no peripheral edema. Patient does have patchy ecchymosis. SAP BI ARCHITECT exam; no focal deficit. Results Result Diagram: 12/16/18 0709 12/16/18 0709 Results 24hrs Laboratory Tests Test 12/15/18 12:59 12/15/18 21:01 12/16/18 00:21 12/16/18 00:23 Creatine Kinase 110 137 130 Creatine Kinase 3.9 4.0 4.0 Index Creatinine Kinase MB 4.24 H 5.49 H 5.20 H (Mass) Troponin I 0.544 *H 0.576 *H 0.585 *H Hemoglobin 7.5 L Hematocrit 23.5 L Test 12/16/18 07:09 White Blood Count 14.5 #H Red Blood Count 2.39 L Hemoglobin 7.0 L Hematocrit 22.1 L Mean Corpuscular 92.5 Volume Mean Corpuscular 29.3 Hemoglobin Mean Corpuscular 31.7 L Hemoglobin Concent Red Cell 15.8 H Distribution Width Platelet Count 159 # Mean Platelet Volume 12.3 H Immature 4.100 H Granulocytes % Neutrophils % 88.5 H Lymphocytes % 3.4 L Monocytes % 3.9 Eosinophils % 0.0 Basophils % 0.1 Nucleated Red Blood 0.0 Cells % Immature 0.600 H Granulocytes # Neutrophils # 12.9 H Lymphocytes # 0.5 L Monocytes # 0.6 Eosinophils # 0.0 Basophils # 0.0 Nucleated Red Blood 0.0 Cells # Sodium Level 146 H Potassium Level 5.0 Chloride Level 110 Carbon Dioxide Level 23 Anion Gap 13 Blood Urea Nitrogen 114 H Creatinine 3.68 H Est Glomerular Filtrat Rate mL/min Glucose Level 170 Calcium Level 8.0 L Phosphorus Level 5.9 H Magnesium Level 2.0 Medications Medication Current Medications IV Flush (NS 3 ml) 3 ml PER PROTOCOL IV ; Start 12/14/18 at 19:30 Aspirin (Aspirin) 81 mg DAILY PO Last administered on 12/16/18 08:55; Admin Dose 81 MG; Start 12/15/18 at 09:00 Nitroglycerin (Nitroglycerin (Sl Tab) 0.4 Mg) 1 tab Q5M PRN SL .CHEST PAIN; Start 12/14/18 at 19:30 Acetaminophen (Tylenol Tab) 650 mg Q6H PRN PO .PAIN 1-3 OR TEMP; Start 12/14/18 at 19:30 Acetaminophen/ Hydrocodone Bitart ([place] (5/325)) 1 tab Q6H PRN PO .PAIN 4-6 Last administered on 12/15/18 18:09; Admin Dose 1 TAB; Start 12/14/18 at 19:30 Morphine Sulfate (morphine) 2 mg Q4H PRN IV .PAIN 7-10 Last administered on 12/15/18 23:18; Admin Dose 2 MG; Start 12/14/18 at 19:30 Atorvastatin Calcium (Lipitor) 80 mg HS PO Last administered on 12/15/18 21:10; Admin Dose 80 MG; Start 12/14/18 at 21:00 Tamsulosin HCl (Flomax) 0.4 mg HS PO Last administered on 12/15/18 21:10; Admin Dose 0.4 MG; Start 12/15/18 at 21:00 Furosemide (Lasix) 20 mg BID DIURETICS IV Last administered on 12/16/18 05:48; Admin Dose 20 MG; Start 12/15/18 at 08:30 Albuterol/ Ipratropium (Duoneb) 3 ml Q6HWA RESP THERAPY HHN Last administered on 12/16/18 10:15; Admin Dose 3 ML; Start 12/15/18 at 14:00 Albuterol/ Ipratropium (Duoneb) 3 ml Q2H RESP THERAPY PRN HHN Dyspnea; Start 12/15/18 at 11:00 Arformoterol Tartrate (Brovana (Neb)) 2 ml BID NEB Last administered on 12/16/18at 10:13; Admin Dose 2 ML; Start 12/15/18 at 11:00 Methylprednisolone Sodium Succinate (Solu-Medrol) 60 mg Q8 IV Last administered on 12/16/18at 05:47; Admin Dose 60 MG; Start 12/15/18 at 14:00 Pantoprazole (Protonix Tab) 40 mg BID@06,18 PO Last administered on 12/16/18at 05:52; Admin Dose 40 MG; Start 12/15/18 at 18:00 Hydralazine HCl (Apresoline) 10 mg Q6H PRN IV SBP>160; Start 12/15/18 at 11:00 Ferric Sodium Gluconate Complex 125 mg/Sodium Chloride 110 ml @ 110 mls/hr DAILY@1300 IVPB ; Start 12/16/18 at 13:00; Stop 12/20/18 at 13:59 Epoetin David-epbx (RETACRIT(esrd)) 10,000 unit MoWeFr@1700 SC ; Start 12/17/18 at 17:00 Finasteride (Proscar) 5 mg DAILY PO Last administered on 12/16/18at 08:55; Admin Dose 5 MG; Start 12/16/18 at 09:00 DEANA BRIAN Dec 16, 2018 11:34
--- NOTE | 2018-12-16 11:46 | CONS ---
Assessment/Plan Assessment/Plan Hospital Course (Demo Recall) 1. Acute renal failure superimposed on chronic kidney disease. His renal function has decreased. I suspect some of this is related to the fact that he is on diuretics for his pulmonary congestion and is in negative fluid balance. This would make his BUN and creatinine higher. I had a long discussion with the patient's daughter about doing hemodialysis. I told her that he is now at a le jf of renal function when I would recommend hemodialysis. She is reluctant to have him dialyzed at this time. I told her we would try discontinuing the diuretics and see if his renal function improves. She understands that his lung congestion is a problem and he may require the diuretics. I did explain the dialysis process and what would happen if he were to need chronic dialysis as an outpatient. 2. Anemia of chronic kidney disease. He is going to have a blood transfusion today. 3, respiratory failure due to CHF and COPD 4. Hypertension. Consultation Date/Type/Reason Admit Date/Time Dec 14, 2018 at 19:05 Initial Consult Date 12/16/18 Type of Consult Nephrology Requesting Provider: MEENA NASH MD Date/Time of Note DATE: 12/16/18 TIME: 11:39 24 HR Interval Summary Free Text/Dictation This patient is awake and alert. His daughter is in the room and is acting as a children's ministries director. He is having less shortness of breath. He still has some pain from where he pulled out the Pleitez catheter yesterday. His urine is grossly bloody. He has a new Pleitez catheter in place. Constitutional: improved Exam/Review of Systems Exam Vitals Vital Signs Date Temp Pulse Resp B/P (MAP) Pulse Ox O2 O2 Flow FiO2 Time Delivery Rate 12/16/18 97.8 80 20 138/57 98 11:11 (84) 12/16/18 Nasal 3.0 10:08 Cannula 12/14/18 50 17:55 Intake and Output 12/15/18 12/15/18 12/16/18 1515:00 23:00 07:00 IntakeIntake Total 200 ml 500 ml OutputOutput Total 950 ml 1500 ml BalanceBalance -750 ml -1000 ml Exam He has severe lymphedema of his right leg. He has trace to +1 edema of the left lower leg. Constitutional: alert, oriented, frail Respiratory: clear to auscultation, normal air movement Cardiovascular: regular rate and rhythm Gastrointestinal: soft, non-tender Results Result Diagram: 12/16/18 0709 12/16/18 0709 Results 24hrs Laboratory Tests Test 12/15/18 12:59 12/15/18 21:01 12/16/18 00:21 12/16/18 00:23 Creatine Kinase 110 137 130 Creatine Kinase 3.9 4.0 4.0 Index Creatinine Kinase MB 4.24 H 5.49 H 5.20 H (Mass) Troponin I 0.544 *H 0.576 *H 0.585 *H Hemoglobin 7.5 L Hematocrit 23.5 L Test 12/16/18 07:09 White Blood Count 14.5 #H Red Blood Count 2.39 L Hemoglobin 7.0 L Hematocrit 22.1 L Mean Corpuscular 92.5 Volume Mean Corpuscular 29.3 Hemoglobin Mean Corpuscular 31.7 L Hemoglobin Concent Red Cell 15.8 H Distribution Width Platelet Count 159 # Mean Platelet Volume 12.3 H Immature 4.100 H Granulocytes % Neutrophils % 88.5 H Lymphocytes % 3.4 L Monocytes % 3.9 Eosinophils % 0.0 Basophils % 0.1 Nucleated Red Blood 0.0 Cells % Immature 0.600 H Granulocytes # Neutrophils # 12.9 H Lymphocytes # 0.5 L Monocytes # 0.6 Eosinophils # 0.0 Basophils # 0.0 Nucleated Red Blood 0.0 Cells # Sodium Level 146 H Potassium Level 5.0 Chloride Level 110 Carbon Dioxide Level 23 Anion Gap 13 Blood Urea Nitrogen 114 H Creatinine 3.68 H Est Glomerular Filtrat Rate mL/min Glucose Level 170 Calcium Level 8.0 L Phosphorus Level 5.9 H Magnesium Level 2.0 Medications Medication Current Medications IV Flush (NS 3 ml) 3 ml PER PROTOCOL IV ; Start 12/14/18 at 19:30 Aspirin (Aspirin) 81 mg DAILY PO Last administered on 12/16/18at 08:55; Admin Dose 81 MG; Start 12/15/18 at 09:00 Nitroglycerin (Nitroglycerin (Sl Tab) 0.4 Mg) 1 tab Q5M PRN SL .CHEST PAIN; Start 12/14/18 at 19:30 Acetaminophen (Tylenol Tab) 650 mg Q6H PRN PO .PAIN 1-3 OR TEMP; Start 12/14/18 at 19:30 Acetaminophen/ Hydrocodone Bitart ([place] (5/325)) 1 tab Q6H PRN PO .PAIN 4-6 Last administered on 12/15/18 18:09; Admin Dose 1 TAB; Start 12/14/18 at 19:30 Morphine Sulfate (morphine) 2 mg Q4H PRN IV .PAIN 7-10 Last administered on 12/15/18 23:18; Admin Dose 2 MG; Start 12/14/18 at 19:30 Atorvastatin Calcium (Lipitor) 80 mg HS PO Last administered on 12/15/18 21:10; Admin Dose 80 MG; Start 12/14/18 at 21:00 Tamsulosin HCl (Flomax) 0.4 mg HS PO Last administered on 12/15/18 21:10; Admin Dose 0.4 MG; Start 12/15/18 at 21:00 Furosemide (Lasix) 20 mg BID DIURETICS IV Last administered on 12/16/18 05:48; Admin Dose 20 MG; Start 12/15/18 at 08:30 Albuterol/ Ipratropium (Duoneb) 3 ml Q6HWA RESP THERAPY HHN Last administered on 12/16/18 10:15; Admin Dose 3 ML; Start 12/15/18 at 14:00 Albuterol/ Ipratropium (Duoneb) 3 ml Q2H RESP THERAPY PRN HHN Dyspnea; Start 12/15/18 at 11:00 Arformoterol Tartrate (Brovana (Neb)) 2 ml BID NEB Last administered on 12/16/18 10:13; Admin Dose 2 ML; Start 12/15/18 at 11:00 Pantoprazole (Protonix Tab) 40 mg BID@06,18 PO Last administered on 12/16/18 05:52; Admin Dose 40 MG; Start 12/15/18 at 18:00 Hydralazine HCl (Apresoline) 10 mg Q6H PRN IV SBP>160; Start 12/15/18 at 11:00 Ferric Sodium Gluconate Complex 125 mg/Sodium Chloride 110 ml @ 110 mls/hr DAILY@1300 IVPB ; Start 12/16/18 at 13:00; Stop 12/20/18 at 13:59 Epoetin David-epbx (RETACRIT(esrd)) 10,000 unit MoWeFr@1700 SC ; Start 12/17/18 at 17:00 Finasteride (Proscar) 5 mg DAILY PO Last administered on 12/16/18at 08:55; Admin Dose 5 MG; Start 12/16/18 at 09:00 MEENA NASH MD Dec 16, 2018 11:46
--- NOTE | 2018-12-16 13:53 | CONS ---
Consult Date/Type/Reason Admit Date/Time Dec 14, 2018 at 19:05 Initial Consult Date 12/16/18 Type of Consultation: Urology Reason for Consultation Gross hematuria Requesting Provider: MEENA NASH MD Date/Time of Note DATE: 12/16/18 TIME: 13:50 Subjective Patient is comfortable but he does get lower abdominal pain and bladder spasms Objective Vitals Vital Signs Date Temp Pulse Resp B/P (MAP) Pulse Ox O2 O2 Flow FiO2 Time Delivery Rate 12/16/18 97.8 80 20 138/57 98 11:11 (84) 12/16/18 Nasal 3.0 10:08 Cannula 12/14/18 50 17:55 Intake and Output 12/15/18 12/15/18 12/16/18 1515:00 23:00 07:00 IntakeIntake Total 200 ml 500 ml OutputOutput Total 950 ml 1500 ml BalanceBalance -750 ml -1000 ml Exam Pleitez catheter that he had which is 20 [place] coud catheter draining dark bloody urine. Results/Medications Result Diagram: 12/16/18 0709 12/16/18 0709 Results 24 hrs Laboratory Tests Test 12/15/18 21:01 12/16/18 00:21 12/16/18 00:23 12/16/18 07:09 Creatine Kinase 137 130 Creatine Kinase 4.0 4.0 Index Creatinine Kinase MB 5.49 H 5.20 H (Mass) Troponin I 0.576 *H 0.585 *H Hemoglobin 7.5 L 7.0 L Hematocrit 23.5 L 22.1 L White Blood Count 14.5 #H Red Blood Count 2.39 L Mean Corpuscular 92.5 Volume Mean Corpuscular 29.3 Hemoglobin Mean Corpuscular 31.7 L Hemoglobin Concent Red Cell 15.8 H Distribution Width Platelet Count 159 # Mean Platelet Volume 12.3 H Immature 4.100 H Granulocytes % Neutrophils % 88.5 H Lymphocytes % 3.4 L Monocytes % 3.9 Eosinophils % 0.0 Basophils % 0.1 Nucleated Red Blood 0.0 Cells % Immature 0.600 H Granulocytes # Neutrophils # 12.9 H Lymphocytes # 0.5 L Monocytes # 0.6 Eosinophils # 0.0 Basophils # 0.0 Nucleated Red Blood 0.0 Cells # Sodium Level 146 H Potassium Level 5.0 Chloride Level 110 Carbon Dioxide Level 23 Anion Gap 13 Blood Urea Nitrogen 114 H Creatinine 3.68 H Est Glomerular Filtrat Rate mL/min Glucose Level 170 Calcium Level 8.0 L Phosphorus Level 5.9 H Magnesium Level 2.0 Home Meds Reported Medications Fenofibrate Nanocrystallized* (Tricor*) 145 Mg Tablet 09/19/10 Azithromycin* (Zithromax*) 250 Mg Tablet 09/19/10 Rosuvastatin Calcium* (Crestor*) 20 Mg Tablet 09/19/10 Dicyclomine Hcl* (Bentyl*) 20 Mg Tablet 09/19/10 Clopidogrel Bisulfate (Plavix) 75 Mg Tablet 09/19/10 Rabeprazole Sodium* (Aciphex*) 20 Mg Tablet. 09/19/10 Terazosin Hcl* (Terazosin Hcl*) 5 Mg Capsule 09/19/10 Aspirin (Adult Low Dose Aspirin) 81 Mg Tablet. 09/19/10 Furosemide (Lasix) 40 Mg Tab 09/19/10 Medications Current Medications IV Flush (NS 3 ml) 3 ml PER PROTOCOL IV ; Start 12/14/18 at 19:30 Aspirin (Aspirin) 81 mg DAILY PO Last administered on 12/16/18 08:55; Admin Dose 81 MG; Start 12/15/18 at 09:00 Nitroglycerin (Nitroglycerin (Sl Tab) 0.4 Mg) 1 tab Q5M PRN SL .CHEST PAIN; Start 12/14/18 at 19:30 Acetaminophen (Tylenol Tab) 650 mg Q6H PRN PO .PAIN 1-3 OR TEMP; Start 12/14/18 at 19:30 Acetaminophen/ Hydrocodone Bitart ([place] (5/325)) 1 tab Q6H PRN PO .PAIN 4-6 Last administered on 12/15/18 18:09; Admin Dose 1 TAB; Start 12/14/18 at 19:30 Morphine Sulfate (morphine) 2 mg Q4H PRN IV .PAIN 7-10 Last administered on 12/15/18at 23:18; Admin Dose 2 MG; Start 12/14/18 at 19:30 Atorvastatin Calcium (Lipitor) 80 mg HS PO Last administered on 12/15/18 21:10; Admin Dose 80 MG; Start 12/14/18 at 21:00 Tamsulosin HCl (Flomax) 0.4 mg HS PO Last administered on 4/29/19at 21:10; Admin Dose 0.4 MG; Start 12/15/18 at 21:00 Albuterol/ Ipratropium (Duoneb) 3 ml Q6HWA RESP THERAPY HHN Last administered on 12/16/18at 10:15; Admin Dose 3 ML; Start 12/15/18 at 14:00 Albuterol/ Ipratropium (Duoneb) 3 ml Q2H RESP THERAPY PRN HHN Dyspnea; Start 12/15/18 at 11:00 Arformoterol Tartrate (Brovana (Neb)) 2 ml BID NEB Last administered on 12/16/18at 10:13; Admin Dose 2 ML; Start 12/15/18 at 11:00 Pantoprazole (Protonix Tab) 40 mg BID@06,18 PO Last administered on 12/16/18at 05:52; Admin Dose 40 MG; Start 12/15/18 at 18:00 Hydralazine HCl (Apresoline) 10 mg Q6H PRN IV SBP>160; Start 12/15/18 at 11:00 Ferric Sodium Gluconate Complex 125 mg/Sodium Chloride 110 ml @ 110 mls/hr DAILY@1300 IVPB ; Start 12/16/18 at 13:00; Stop 12/20/18 at 13:59 Epoetin David-epbx (RETACRIT(esrd)) 10,000 unit MoWeFr@1700 SC ; Start 12/17/18 at 17:00 Finasteride (Proscar) 5 mg DAILY PO Last administered on 12/16/18at 08:55; Admin Dose 5 MG; Start 12/16/18 at 09:00 Assessment/Plan Hospital Course (Demo Recall) 88-year-old male known to have a history of chronic kidney disease, benign prostatic hypertrophy, and history of coronary artery disease was admitted to the hospital because of congestive heart failure. His troponin were elevated. He had an indwelling Pleitez catheter which he pulled accidentally causing him to bleed. Therefore a urological consultation was requested. I did review his records, but the history and physical as well as the consultations on him. Since I put the 16 [place] coud catheter yesterday he continued to have gross dark bloody urine. Therefore I decided today to change the Pleitez catheter and try to put a three-way so we could do continuous bladder irrigation. I did remove the old catheter then prepped the genital area and gave him 20 mL of 2% lidocaine jelly for local anesthesia waited for 5 minutes for it to work then I inserted a 22 [place] three-way 30 cc balloon Pleitez catheter I used the catheter guide to do that and that went and without any problem. I then spent over 45 minutes hand irrigating the blood clots out of his bladder. Then I started him on continuous bladder irrigation was normal saline. I instructed the nurse to hand irrigate the Pleitez as needed and make sure that the continuous irrigation does not go dry. THIERRY URIARTE MD Dec 16, 2018 13:53
[2018-12-16] MEDS: SOD FERRIC GLUC COMPLX 125 MG in SOD CHLORIDE 0.9% 100 ML IVPB SCH (14:29)
--- NOTE | 2018-12-16 20:19 | CONS ---
Consult Date/Type/Reason Admit Date/Time Dec 14, 2018 at 19:05 Initial Consult Date 12/16/18 Type of Consultation: cv Requesting Provider: MEENA NASH MD Date/Time of Note DATE: 12/16/18 TIME: 20:16 Subjective cardiology follow up note S; D/W staff and son and tele was reviewed. pt remains in NSR no chest pain or pressure or palpitations less sob today feels better now O: General: Elderly gentleman appears to be in no acute distress HEENT: NC/AT. pupils are equal. round. NECK: . no stridor. CV: RRR. systolic murmur; no gallop or rubs. PULM: + mild rhonchi. no wheezing GI: SOFT, NT, ND, no rebound or guarding Extremity: Right lower extremity with lymphedema. Trace left lower extremity edema neuro: awake and alert, Psych:calm now rectal: deferred : s/p herrera in place EKG was personally within normal sinus rhythm with right bundle branch block. Septal infarct age undetermined Echocardiogram was personally reviewed which shows: There is moderate enlargement of left atrium. Normal left ventricular systolic function. Normal left ventricular cavity size. Mild concentric left ventricular hypertrophy. Ejection fraction is visually estimated at 55 %. Abnormal Diastolic Function. Normal appearance of the mitral valve. Mild mitral annular calcification. Trace mitral regurgitation. No significant aortic stenosis or insufficiency. Aortic cusps appear mildly calcified. Normal appearance of the tricuspid valve. Estimated peak PA systolic pressure 60 mmHg. There is mild to moderate tricuspid regurgitation. Dilated IVC without respiratory collapse consistent with elevated right atrial pressure. Chest x-ray done 12/06/2018 shows: Mild pulmonary vascular congestion with interstitial edema. Strandy consolidation in both midlung zones laterally can be seen with alveolar edema or infection Objective Vitals Vital Signs Date Temp Pulse Resp B/P (MAP) Pulse Ox O2 O2 Flow FiO2 Time Delivery Rate 12/16/18 64 20:00 12/16/18 3.0 18:53 12/16/18 97.7 20 135/63 92 15:14 (87) 12/16/18 Nasal 10:08 Cannula 12/14/18 50 17:55 Intake and Output 12/15/18 12/15/18 12/16/18 1414:59 22:59 06:59 IntakeIntake Total 200 ml 500 ml OutputOutput Total 950 ml 1500 ml BalanceBalance -750 ml -1000 ml Results/Medications Result Diagram: 12/16/18 0709 12/16/18 0709 Results 24 hrs Laboratory Tests Test 12/15/18 21:01 12/16/18 00:21 12/16/18 00:23 12/16/18 07:09 Creatine Kinase 137 130 Creatine Kinase 4.0 4.0 Index Creatinine Kinase MB 5.49 H 5.20 H (Mass) Troponin I 0.576 *H 0.585 *H Hemoglobin 7.5 L 7.0 L Hematocrit 23.5 L 22.1 L White Blood Count 14.5 #H Red Blood Count 2.39 L Mean Corpuscular 92.5 Volume Mean Corpuscular 29.3 Hemoglobin Mean Corpuscular 31.7 L Hemoglobin Concent Red Cell 15.8 H Distribution Width Platelet Count 159 # Mean Platelet Volume 12.3 H Immature 4.100 H Granulocytes % Neutrophils % 88.5 H Lymphocytes % 3.4 L Monocytes % 3.9 Eosinophils % 0.0 Basophils % 0.1 Nucleated Red Blood 0.0 Cells % Immature 0.600 H Granulocytes # Neutrophils # 12.9 H Lymphocytes # 0.5 L Monocytes # 0.6 Eosinophils # 0.0 Basophils # 0.0 Nucleated Red Blood 0.0 Cells # Sodium Level 146 H Potassium Level 5.0 Chloride Level 110 Carbon Dioxide Level 23 Anion Gap 13 Blood Urea Nitrogen 114 H Creatinine 3.68 H Est Glomerular Filtrat Rate mL/min Glucose Level 170 Calcium Level 8.0 L Phosphorus Level 5.9 H Magnesium Level 2.0 Home Meds Reported Medications Fenofibrate Nanocrystallized* (Tricor*) 145 Mg Tablet 09/19/10 Azithromycin* (Zithromax*) 250 Mg Tablet 09/19/10 Rosuvastatin Calcium* (Crestor*) 20 Mg Tablet 09/19/10 Dicyclomine Hcl* (Bentyl*) 20 Mg Tablet 09/19/10 Clopidogrel Bisulfate (Plavix) 75 Mg Tablet 09/19/10 Rabeprazole Sodium* (Aciphex*) 20 Mg Tablet. 09/19/10 Terazosin Hcl* (Terazosin Hcl*) 5 Mg Capsule 09/19/10 Aspirin (Adult Low Dose Aspirin) 81 Mg Tablet. 09/19/10 Furosemide (Lasix) 40 Mg Tab 09/19/10 Medications Current Medications IV Flush (NS 3 ml) 3 ml PER PROTOCOL IV ; Start 12/14/18 at 19:30 Aspirin (Aspirin) 81 mg DAILY PO Last administered on 12/16/18 08:55; Admin Dose 81 MG; Start 12/15/18 at 09:00 Nitroglycerin (Nitroglycerin (Sl Tab) 0.4 Mg) 1 tab Q5M PRN SL .CHEST PAIN; Start 12/14/18 at 19:30 Acetaminophen (Tylenol Tab) 650 mg Q6H PRN PO .PAIN 1-3 OR TEMP; Start 12/14/18 at 19:30 Acetaminophen/ Hydrocodone Bitart ([place] (5/325)) 1 tab Q6H PRN PO .PAIN 4-6 Last administered on 12/15/18 18:09; Admin Dose 1 TAB; Start 12/14/18 at 19:30 Morphine Sulfate (morphine) 2 mg Q4H PRN IV .PAIN 7-10 Last administered on 12/15/18 23:18; Admin Dose 2 MG; Start 12/14/18 at 19:30 Atorvastatin Calcium (Lipitor) 80 mg HS PO Last administered on 12/15/18 21:10; Admin Dose 80 MG; Start 12/14/18 at 21:00 Tamsulosin HCl (Flomax) 0.4 mg HS PO Last administered on 12/15/18 21:10; Admin Dose 0.4 MG; Start 12/15/18 at 21:00 Albuterol/ Ipratropium (Duoneb) 3 ml Q6HWA RESP THERAPY HHN Last administered on 12/16/18 10:15; Admin Dose 3 ML; Start 12/15/18 at 14:00 Albuterol/ Ipratropium (Duoneb) 3 ml Q2H RESP THERAPY PRN HHN Dyspnea; Start 12/15/18 at 11:00 Arformoterol Tartrate (Brovana (Neb)) 2 ml BID NEB Last administered on 12/16/18 10:13; Admin Dose 2 ML; Start 12/15/18 at 11:00 Pantoprazole (Protonix Tab) 40 mg BID@06,18 PO Last administered on 12/16/18 18:01; Admin Dose 40 MG; Start 12/15/18 at 18:00 Hydralazine HCl (Apresoline) 10 mg Q6H PRN IV SBP>160; Start 12/15/18 at 11:00 Ferric Sodium Gluconate Complex 125 mg/Sodium Chloride 110 ml @ 110 mls/hr DAILY@1300 IVPB Last administered on 12/16/18at 14:29; Admin Dose 110 MLS/HR; Start 12/16/18 at 13:00; Stop 12/20/18 at 13:59 Epoetin David-epbx (RETACRIT(esrd)) 10,000 unit MoWeFr@1700 SC ; Start 12/17/18 at 17:00 Finasteride (Proscar) 5 mg DAILY PO Last administered on 12/16/18at 08:55; Admin Dose 5 MG; Start 12/16/18 at 09:00 Assessment/Plan Hospital Course (Demo Recall) 1. Abnormal troponin most likely secondary to below versus type II non-ST elevation myocardial infarction 2. Hypoxemic respiratory failure 3. COPD exacerbation, possible pneumonia 4. 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 Hypertension 6. Dyslipidemia 7 for history of coronary artery disease 8. History of coronary bypass graft 9. History of PCI 10. hematuria 11. Anemia 12. Renal failure probably chronic kidney disease Recommendations: Continue with medical therapy. Aspirin will be continued. Nebulizer treatment pulmonary care as per internal medicine. Consider pulmonary consultation as well Echocardiogram showed preserved LV systolic function but Patient does have pulmonary hypertension Not on any KYLIE inhibitor or ARB due to his renal failure f/u with renal consultation rec f/u urology rec Other invasive options such as a coronary angiogram discussed with the patient and the daughter on admission. it Was explained that unless patient is willing to go on dialysis is best not to pursue coronary angiography because there is a higher chance of require him to go on dialysis. Patient and family said they do not want to be dialyzed and are not ready for it at this point. We will continue with medical therapy for now Thank you for his referral. We will continue to follow along with you PIPO GABRIEL MD [facility] PIPO GABRIEL MD Dec 16, 2018 20:19
[2018-12-16] MEDS: TAMSULOSIN (SR) 0.4 MG CAP PO SCH (20:45)
[2018-12-16] MEDS: ATORVASTATIN 80 MG TAB PO SCH (20:45)
[2018-12-17] VITALS (11 sets, daily range): BP systolic 139–176; BP diastolic 64–82; PULSE 68–112; RESP 18–20
[2018-12-17] MEDS: PANTOPRAZOLE (EC) 40 MG TAB PO SCH ×2 (05:11→17:43)
--- NOTE | 2018-12-17 05:52 | PN ---
Date/Time of Note Date/Time of Note DATE: 12/17/18 TIME: 05:50 Assessment/Plan VTE Prophylaxis Risk score (from [facility])>0 risk: 6 SCD applied (from [facility]): No SCD contraindicated: other Pharmacological prophylaxis: NA/contraindicated Pharm contraindication: bleeding Lines/Catheters IV Catheter Type (from [facility] [place] Urinary Cath still in place: No Assessment/Plan Hospital Course SUBJECTIVE: Dyspnea improved. Remains on continuous bladder irrigation. Denies any chest pain. OBJECTIVE: Physical Exam General: Obese, 88 year-old female lying in bed in mild to moderate respiratory distress. HEENT: Normocephalic, atraumatic. Eyes: Anicteric sclerae, conjunctivae clear. ENT: Nasal septum midline, oral mucosa moist. Neck supple. Respiratory: Bilaterally diminished breath sounds. Use of accessory muscles of respiration. Bilateral expiratory wheezing. Cardiovascular: S1, S2 heard. Regular rate and rhythm. Abdomen: Soft, nontender, and nondistended. Bowel sounds positive in all 4 quadrants. Genitourinary: Gross hematuria. Extremities: No cyanosis, no clubbing. Bilateral lower extremity edema. Right lower extremity edema greater than the left. Neurologic: Cranial nerves II through XII grossly intact. The patient is awake, alert, and oriented. Labs & Vitals per chart ASSESSMENT & PLAN 88-year-old male with comorbidities including CAD status post CABG, dyslipidemia, obesity, chronic kidney disease, prostate hypertrophy, and hypertension, who came to the emergency room with chief complaint of dyspnea and wheezing that has been progressively getting worse. Patient was also noticed to have elevated troponins in the emergency room. The patient's chest x-ray was showing evidence of mild pulmonary vascular congestion with interstitial edema. The patient was admitted to inpatient setting for further treatment and evaluation. 1. Acute respiratory failure. -Hypoxic. -Most probably secondary to underlying reactive airway disease and CHF exacerbation. -Continue inhaled bronchodilators ADIA and LABA. -S/P tapering dose of steroids. -Continue diuresis as renal function allows. 2. COPD exacerbation. -Remote history of smoking over years. -Continue inhaled bronchodilators ADIA and LABA. -S/P tapering dose of steroids. -Pulmonology following. 3. NSTEMI. -Known history of CAD, status post CABG. -Continue aspirin. -Continue high-dose statins. -Cardiology following. -Patient/family refusing left heart cath. 4. Acute on chronic kidney disease. -Nephrology following. 5. Benign prostatic hypertrophy. -Continue tamsulosin and finasteride. 6. Hypertension. -Blood pressure well controlled off antihypertensives. 7. Dyslipidemia. -Continue statins. 8. Hematuria from traumatic pulling of Pleitez catheter by the patient. -Being followed by Urology. -On CBI. 9. Normocytic anemia -Etiology could be multifactorial including the acute blood loss from traumatic pulling of the Pleitez. -Transfuse blood products as indicated. 10. Chronic right lower extremity lymphedema. -Venous Doppler negative for any DVT. 11. CHF exacerbation. -Diastolic dysfunction. -Continue diuresis as renal function allows. 12. Pulmonary hypertension. -PA pressure of 60 mm Hg. -Continue supplemental O2. 13. Fluids, electrolytes, and nutrition. -Renal diet. 14. DVT prophylaxis. -B/L SCDs. 15. Plan. -Continue inhaled bronchodilators. -Continue inpatient monitoring. -Transfuse 2 units of PRBC today. -Await clinical improvement. The patient was seen in collaboration with . Result Diagram: 12/16/18 0709 12/16/18 0709 Results 24hrs Laboratory Tests Test 12/16/18 07:09 White Blood Count 14.5 #H Red Blood Count 2.39 L Hemoglobin 7.0 L Hematocrit 22.1 L Mean Corpuscular Volume 92.5 Mean Corpuscular Hemoglobin 29.3 Mean Corpuscular Hemoglobin Concent 31.7 L Red Cell Distribution Width 15.8 H Platelet Count 159 # Mean Platelet Volume 12.3 H Immature Granulocytes % 4.100 H Neutrophils % 88.5 H Lymphocytes % 3.4 L Monocytes % 3.9 Eosinophils % 0.0 Basophils % 0.1 Nucleated Red Blood Cells % 0.0 Immature Granulocytes # 0.600 H Neutrophils # 12.9 H Lymphocytes # 0.5 L Monocytes # 0.6 Eosinophils # 0.0 Basophils # 0.0 Nucleated Red Blood Cells # 0.0 Sodium Level 146 H Potassium Level 5.0 Chloride Level 110 Carbon Dioxide Level 23 Anion Gap 13 Blood Urea Nitrogen 114 H Creatinine 3.68 H Est Glomerular Filtrat Rate mL/min Glucose Level 170 Calcium Level 8.0 L Phosphorus Level 5.9 H Magnesium Level 2.0 Exam/Review of Systems Exam Vitals Vital Signs Date Temp Pulse Resp B/P (MAP) Pulse Ox O2 O2 Flow FiO2 Time Delivery Rate 12/17/18 97.6 73 20 150/69 95 04:00 (96) 12/16/18 Nasal 3.0 22:16 Cannula 12/14/18 50 17:55 Intake and Output 12/16/18 12/16/18 12/17/18 1414:59 22:59 06:59 IntakeIntake Total 475 ml OutputOutput Total 900 ml BalanceBalance -425 ml Results Results 24hrs Laboratory Tests Test 12/16/18 07:09 White Blood Count 14.5 #H Red Blood Count 2.39 L Hemoglobin 7.0 L Hematocrit 22.1 L Mean Corpuscular Volume 92.5 Mean Corpuscular Hemoglobin 29.3 Mean Corpuscular Hemoglobin Concent 31.7 L Red Cell Distribution Width 15.8 H Platelet Count 159 # Mean Platelet Volume 12.3 H Immature Granulocytes % 4.100 H Neutrophils % 88.5 H Lymphocytes % 3.4 L Monocytes % 3.9 Eosinophils % 0.0 Basophils % 0.1 Nucleated Red Blood Cells % 0.0 Immature Granulocytes # 0.600 H Neutrophils # 12.9 H Lymphocytes # 0.5 L Monocytes # 0.6 Eosinophils # 0.0 Basophils # 0.0 Nucleated Red Blood Cells # 0.0 Sodium Level 146 H Potassium Level 5.0 Chloride Level 110 Carbon Dioxide Level 23 Anion Gap 13 Blood Urea Nitrogen 114 H Creatinine 3.68 H Est Glomerular Filtrat Rate mL/min Glucose Level 170 Calcium Level 8.0 L Phosphorus Level 5.9 H Magnesium Level 2.0 Medications Medication Current Medications IV Flush (NS 3 ml) 3 ml PER PROTOCOL IV ; Start 12/14/18 at 19:30 Aspirin (Aspirin) 81 mg DAILY PO Last administered on 12/16/18at 08:55; Admin Dose 81 MG; Start 12/15/18 at 09:00 Nitroglycerin (Nitroglycerin (Sl Tab) 0.4 Mg) 1 tab Q5M PRN SL .CHEST PAIN; Start 12/14/18 at 19:30 Acetaminophen (Tylenol Tab) 650 mg Q6H PRN PO .PAIN 1-3 OR TEMP; Start 12/14/18 at 19:30 Acetaminophen/ Hydrocodone Bitart ([place] (5/325)) 1 tab Q6H PRN PO .PAIN 4-6 Last administered on 12/15/18at 18:09; Admin Dose 1 TAB; Start 12/14/18 at 19:30 Morphine Sulfate (morphine) 2 mg Q4H PRN IV .PAIN 7-10 Last administered on 12/15/18at 23:18; Admin Dose 2 MG; Start 12/14/18 at 19:30 Atorvastatin Calcium (Lipitor) 80 mg HS PO Last administered on 12/16/18 20:45; Admin Dose 80 MG; Start 12/14/18 at 21:00 Tamsulosin HCl (Flomax) 0.4 mg HS PO Last administered on 12/16/18 20:45; Admin Dose 0.4 MG; Start 12/15/18 at 21:00 Albuterol/ Ipratropium (Duoneb) 3 ml Q6HWA RESP THERAPY HHN Last administered on 12/16/18 22:13; Admin Dose 3 ML; Start 12/15/18 at 14:00 Albuterol/ Ipratropium (Duoneb) 3 ml Q2H RESP THERAPY PRN HHN Dyspnea; Start at 11:00 Arformoterol Tartrate (Brovana (Neb)) 2 ml BID NEB Last administered on 12/16/18 22:13; Admin Dose 2 ML; Start 12/15/18 at 11:00 Pantoprazole (Protonix Tab) 40 mg BID@06,18 PO Last administered on 12/17/18at 05:11; Admin Dose 40 MG; Start 12/15/18 at 18:00 Hydralazine HCl (Apresoline) 10 mg Q6H PRN IV SBP>160; Start 12/15/18 at 11:00 Ferric Sodium Gluconate Complex 125 mg/Sodium Chloride 110 ml @ 110 mls/hr DAILY@1300 IVPB Last administered on 12/16/18 14:29; Admin Dose 110 MLS/HR; Start 12/16/18 at 13:00; Stop 12/20/18 at 13:59 Epoetin David-epbx (RETACRIT(esrd)) 10,000 unit MoWeFr@1700 SC ; Start 12/17/18 at 17:00 Finasteride (Proscar) 5 mg DAILY PO Last administered on 12/16/18at 08:55; Admin Dose 5 MG; Start 12/16/18 at 09:00 GAMA MUNROE NP December 17, 2018 05:52
[2018-12-17] MEDS: ALBUTEROL/IPRATROPIUM (NEB) 3 ML AMP HHN SCH ×3 (07:51→19:51)
[2018-12-17] MEDS: ARFORMOTEROL TARTRATE 15MCG/2 ML AMP NEB SCH ×2 (07:53→19:51)
[2018-12-17] MEDS ORDERED: SOD CHLORIDE 0.9% 250 ML IV* ONE (09:03)
--- NOTE | 2018-12-17 09:03 | CONS ---
DATE OF ADMISSION: 12/14/2018 DATE OF CONSULTATION: 12/17/2018 SUBJECTIVE: The patient is doing very well overnight time. No difficulty with his CBI. The patient has history of gross hematuria, status post traumatic removal of Pleitez catheter. Over the nighttime . He has been on CBI, which has remained clear. This has not required any attention. He is resting in bed and eating solid food. PHYSICAL EXAMINATION: VITAL SIGNS: Blood pressure 145/67, heart rate 62, respirations 20. ABDOMEN: Soft, nondistended, nontender, no palpable masses. Flank, no CVA tenderness or masses. GENITALIA: Normal shaft of penis, scrotum, testicles and epididymis. CBI slowly draining clear urin e without any noted color. Blood culture x2 negative, urine culture, no significant growth. LABORATORY DATA: White blood count 14.5, hemoglobin 7.0, creatinine 3.68. IMPRESSION: Gross hematuria attributed to traumatic removal of Pleitez catheter on CBI, which is now c lear. PLAN: Discontinue CBI, continue to Pleitez gravity, resume CBI for gross hematuria/clots, anemia, augustin sfusion as per medicine, chronic renal failure. Plan as above. Dictated By: GEOFFREY RUANO MD EGR/NTS Conf#: [id number] DID#: [id number] CC: GEOFFREY RUANO MD; LAUREN NELSON MD; THIERRY URIARTE MD;*[facility]*
--- NOTE | 2018-12-17 09:17 | CONS ---
Consult Date/Type/Reason Admit Date/Time Dec 14, 2018 at 19:05 Initial Consult Date 12/16/18 Type of Consultation: cv Requesting Provider: MEENA NASH MD Date/Time of Note DATE: 12/17/18 TIME: 09:16 Subjective cardiology follow up note S; D/W staff and son and tele was reviewed. pt remains in NSR no chest pain or pressure or palpitations less sob today feels better now d/w daughter. pt has been intermittently confused but cooperative now O: General: Elderly gentleman appears to be in no acute distress HEENT: NC/AT. pupils are equal. round. NECK: . no stridor. CV: RRR. systolic murmur; no gallop or rubs. PULM: + mild rhonchi.+ wheezing GI: SOFT, NT, ND, no rebound or guarding Extremity: Right lower extremity with lymphedema. Trace left lower extremity edema neuro: awake and alert, Psych:calm now rectal: deferred : s/p herrera in place EKG was personally within normal sinus rhythm with right bundle branch block. Septal infarct age undetermined Echocardiogram was personally reviewed which shows: There is moderate enlargement of left atrium. Normal left ventricular systolic function. Normal left ventricular cavity size. Mild concentric left ventricular hypertrophy. Ejection fraction is visually estimated at 55 %. Abnormal Diastolic Function. Normal appearance of the mitral valve. Mild mitral annular calcification. Trace mitral regurgitation. No significant aortic stenosis or insufficiency. Aortic cusps appear mildly calcified. Normal appearance of the tricuspid valve. Estimated peak PA systolic pressure 60 mmHg. There is mild to moderate tricuspid regurgitation. Dilated IVC without respiratory collapse consistent with elevated right atrial pressure. Chest x-ray done 12/06/2018 shows: Mild pulmonary vascular congestion with interstitial edema. Strandy consolidatio n in both midlung zones laterally can be seen with alveolar edema or infection Objective Vitals Vital Signs Date Temp Pulse Resp B/P (MAP) Pulse Ox O2 O2 Flow FiO2 Time Delivery Rate 12/17/18 75 08:13 12/17/18 2.0 07:53 12/17/18 20 90 21 07:53 12/17/18 97.5 145/67 Room Air 07:37 (93) Intake and Output 12/16/18 12/16/18 12/17/18 1515:00 23:00 07:00 IntakeIntake Total 475 ml 400 ml OutputOutput Total 900 ml 1200 ml BalanceBalance -425 ml -800 ml Results/Medications Result Diagram: 12/17/18 0741 12/16/18 0709 Results 24 hrs Laboratory Tests Test 12/17/18 07:34 12/17/18 07:41 Lab Scanned Report BLOOD TRANSFUSION White Blood Count 10.6 # Red Blood Count 2.28 L Hemoglobin 6.6 *L Hematocrit 20.4 L Mean Corpuscular Volume 89.5 Mean Corpuscular Hemoglobin 28.9 L Mean Corpuscular Hemoglobin Concent 32.4 Red Cell Distribution Width 16.6 H Platelet Count 143 Mean Platelet Volume 12.3 H Immature Granulocytes % 5.900 H Neutrophils % 82.6 H Lymphocytes % 5.3 L Monocytes % 6.0 Eosinophils % 0.0 Basophils % 0.2 Nucleated Red Blood Cells % 0.0 Immature Granulocytes # 0.620 H Neutrophils # 8.7 H Lymphocytes # 0.6 L Monocytes # 0.6 Eosinophils # 0.0 Basophils # 0.0 Nucleated Red Blood Cells # 0.0 Pathologist Review (Hematology) YES Phosphorus Level 5.0 H Magnesium Level 2.0 Home Meds Reported Medications Fenofibrate Nanocrystallized* (Tricor*) 145 Mg Tablet 09/19/10 Azithromycin* (Zithromax*) 250 Mg Tablet 09/19/10 Rosuvastatin Calcium* (Crestor*) 20 Mg Tablet 09/19/10 Dicyclomine Hcl* (Bentyl*) 20 Mg Tablet 09/19/10 Clopidogrel Bisulfate (Plavix) 75 Mg Tablet 09/19/10 Rabeprazole Sodium* (Aciphex*) 20 Mg Tablet. 09/19/10 Terazosin Hcl* (Terazosin Hcl*) 5 Mg Capsule 09/19/10 Aspirin (Adult Low Dose Aspirin) 81 Mg Tablet. 09/19/10 Furosemide (Lasix) 40 Mg Tab 09/19/10 Medications Current Medications IV Flush (NS 3 ml) 3 ml PER PROTOCOL IV ; Start 12/14/18 at 19:30 Aspirin (Aspirin) 81 mg DAILY PO Last administered on 12/16/18at 08:55; Admin Dose 81 MG; Start 12/15/18 at 09:00 Nitroglycerin (Nitroglycerin (Sl Tab) 0.4 Mg) 1 tab Q5M PRN SL .CHEST PAIN; Start 12/14/18 at 19:30 Acetaminophen (Tylenol Tab) 650 mg Q6H PRN PO .PAIN 1-3 OR TEMP; Start 12/14/18 at 19:30 Acetaminophen/ Hydrocodone Bitart ([place] (5/325)) 1 tab Q6H PRN PO .PAIN 4-6 Last administered on 12/15/18 18:09; Admin Dose 1 TAB; Start 12/14/18 at 19:30 Morphine Sulfate (morphine) 2 mg Q4H PRN IV .PAIN 7-10 Last administered on 12/15/18 23:18; Admin Dose 2 MG; Start 12/14/18 at 19:30 Atorvastatin Calcium (Lipitor) 80 mg HS PO Last administered on 12/16/18 20:45; Admin Dose 80 MG; Start 12/14/18 at 21:00 Tamsulosin HCl (Flomax) 0.4 mg HS PO Last administered on 12/16/18 20:45; Ad min Dose 0.4 MG; Start 12/15/18 at 21:00 Albuterol/ Ipratropium (Duoneb) 3 ml Q6HWA RESP THERAPY HHN Last administered on 12/17/18 07:51; Admin Dose 3 ML; Start 12/15/18 at 14:00 Albuterol/ Ipratropium (Duoneb) 3 ml Q2H RESP THERAPY PRN HHN Dyspnea; Start 12/15/18 at 11:00 Arformoterol Tartrate (Brovana (Neb)) 2 ml BID NEB Last administered on 12/17/18 07:53; Admin Dose 2 ML; Start 12/15/18 at 11:00 Pantoprazole (Protonix Tab) 40 mg BID@06,18 PO Last administered on 12/17/18 05:11; Admin Dose 40 MG; Start 12/15/18 at 18:00 Hydralazine HCl (Apresoline) 10 mg Q6H PRN IV SBP>160; Start 12/15/18 at 11:00 Ferric Sodium Gluconate Complex 125 mg/Sodium Chloride 110 ml @ 110 mls/hr DAILY@1300 IVPB Last administered on 12/16/18at 14:29; Admin Dose 110 MLS/HR; Start 12/16/18 at 13:00; Stop 12/20/18 at 13:59 Epoetin David-epbx (RETACRIT(esrd)) 10,000 unit MoWeFr@1700 SC ; Start 12/17/18 at 17:00 Finasteride (Proscar) 5 mg DAILY PO Last administered on 12/16/18at 08:55; Admin Dose 5 MG; Start 12/16/18 at 09:00 Assessment/Plan Hospital Course (Demo Recall) 1. Abnormal troponin most likely secondary to below versus type II non-ST elevation myocardial infarction 2. Hypoxemic respiratory failure 3. COPD exacerbation, possible pneumonia 4. 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 Hypertension 6. Dyslipidemia 7 for history of coronary artery disease 8. History of coronary bypass graft 9. History of PCI 10. hematuria 11. Anemia 12. Renal failure probably chronic kidney disease Recommendations: Continue with medical therapy. Aspirin will be continued. Nebulizer treatment pulmonary care as per internal medicine. Echocardiogram showed preserved LV systolic function but Patient does have pulmonary hypertension Not on any KYLIE inhibitor or ARB due to his renal failure. f/u with renal consultation rec f/u urology rec s/p sharon now Other invasive options such as a coronary angiogram discussed with the patient and the daughter on admission. it Was explained that unless patient is willing to go on dialysis is best not to pursue coronary angiography because there is a higher chance of require him to go on dialysis. Patient and family said they do not want to be dialyzed and are not ready for it at this point. We will continue with medical therapy for now Thank you for his referral. We will continue to follow along with you PIPO GABRIEL MD [facility] PIPO GABRIEL MD December 17, 2018 09:17
[2018-12-17] MEDS: FINASTERIDE 5 MG TAB PO SCH (09:36)
[2018-12-17] MEDS: ASPIRIN 81 MG TAB PO SCH (09:36)
--- NOTE | 2018-12-17 09:53 | CONS ---
Assessment/Plan Assessment/Plan Assessment/Plan (Daily) Chest x-ray was reviewed from yesterday afternoon which is showing interstitial prominence with minimal degree of pulmonary edema. Assessment and recommendations; 1. Patient admitted for COPD exacerbation as well as CHF exacerbation with significant interval clinical improvement. 2. Chronic renal insufficiency. 3. Prior CABG. 4. Severe anemia. 5. Thrombocytopenia. 6. BPH. Continue current supportive care. Transfuse packed RBC. Patient likely will need to have GI work-up done. Family has declined coronary angiography on account of risk of contrast-induced further renal injury tipping the patient over to hemodialysis. Consultation Date/Type/Reason Admit Date/Time Dec 14, 2018 at 19:05 Initial Consult Date 12/16/18 Type of Consult Pulmonary Patient is a pleasant 88-year-old male who was admitted to the hospital with complaints of shortness of breath going on for the past 2 days prior to admission. Patient denies having any chest pain. Upon evaluation further work- up was done including a chest x-ray which is showing pulmonary edema with elevation in troponin as well as significant elevation in BNP level. Patient has been started on diuretic regimen. Coronary angiography was discussed with the patient by the plane tender however because of history of chronic renal insufficiency the family declined owing to risk of going on hemodialysis due to contrast injury. Patient has improved since admission and denies any further shortness of breath. Denies any coughing, fever, chest pain, angina. Any wheezing. By the time I saw him in the room patient appeared very comfortable and did not appear to be in any distress whatsoever. Past medical history; 1. Chronic renal insufficiency 2. History of prior CABG 3. Hypertension 4. COPD 5. Anemia 6. BPH 7. CHF Medications; reviewed Allergies; none Social history; patient does have a history of smoking. Family history; noncontributory. Patient does have a supportive family. 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 Review of systems; denies any headache, visual changes, sinus symptoms. Shortness of breath has improved. Denies any chest pain, angina any wheezing, sputum production or hemoptysis. Denies any fever or chills. Denies any abdominal pain, nausea vomiting. Any melena or hematochezia. Does complain of chronic frequency and urgency of urination. Denies any orthopnea. Any weight loss. General exam; elderly male, laying comfortably in bed. Awake and alert. Currently in no distress. Requesting Provider: MEENA NASH MD Date/Time of Note DATE: 12/17/18 TIME: 09:51 24 HR Interval Summary Free Text/Dictation Patient's condition is stable. Denies any shortness of breath, chest pain, coughing, wheezing or any sputum production. General exam; elderly male, awake alert, currently in no distress. Laying comfortably in bed. Exam/Review of Systems Exam Vitals Vital Signs Date Temp Pulse Resp B/P (MAP) Pulse Ox O2 O2 Flow FiO2 Time Delivery Rate 12/17/18 75 08:13 12/17/18 2.0 07:53 12/17/18 20 90 21 07:53 12/17/18 97.5 145/67 Room Air 07:37 (93) Intake and Output 12/16/18 12/16/18 12/17/18 1515:00 23:00 07:00 IntakeIntake Total 475 ml 400 ml OutputOutput Total 900 ml 1200 ml BalanceBalance -425 ml -800 ml Exam H ENT exam; supple neck, no JVD. No lymphadenopathy. Midline trachea. No thyromegaly. Patient does have multiple carious teeth. Chest exam; diminished but clear breath sounds. S1-S2 audible, no murmurs. Regular rhythm. There is a well-healed sternal scar. Abdomen exam; soft, no organomegaly. Bowel sounds audible. Nontender. Extremity exam; no peripheral edema or clubbing. [employer] exam; no focal deficit. Results Result Diagram: 12/17/18 0741 12/17/18 0741 Results 24hrs Laboratory Tests Test 12/17/18 07:34 12/17/18 07:41 Lab Scanned Report BLOOD TRANSFUSION White Blood Count 10.6 # Red Blood Count 2.28 L Hemoglobin 6.6 *L Hematocrit 20.4 L Mean Corpuscular Volume 89.5 Mean Corpuscular Hemoglobin 28.9 L Mean Corpuscular Hemoglobin Concent 32.4 Red Cell Distribution Width 16.6 H Platelet Count 143 Mean Platelet Volume 12.3 H Immature Granulocytes % 5.900 H Neutrophils % 82.6 H Segmented Neutrophils % (Manual) 90 H Lymphocytes % 5.3 L Lymphocytes % (Manual) 6 L Monocytes % 6.0 Monocytes % (Manual) 3 Eosinophils % 0.0 Basophils % 0.2 Metamyelocytes % (manual) 1 H Nucleated Red Blood Cells % 0.0 Immature Granulocytes # 0.620 H Neutrophils # 8.7 H Lymphocytes (Manual) 0.6 L Lymphocytes # 0.6 L Monocytes # 0.6 Monocytes # (Manual) 0.3 Eosinophils # 0.0 Basophils # 0.0 Metamyelocytes # 0.1 H Nucleated Red Blood Cells # 0.0 Pathologist Review (Hematology) YES Platelet Estimate NORMAL Giant Platelets 1 H Polychromasia 2+ Anisocytosis 1+ Sodium Level 145 H Potassium Level 4.4 Chloride Level 113 H Carbon Dioxide Level 23 Anion Gap 9 Blood Urea Nitrogen 117 H Creatinine 3.18 H Est Glomerular Filtrat Rate mL/min Glucose Level 112 # Calcium Level 8.5 Phosphorus Level 5.0 H Magnesium Level 2.0 Medications Medication Current Medications IV Flush (NS 3 ml) 3 ml PER PROTOCOL IV ; Start 12/14/18 at 19:30 Aspirin (Aspirin) 81 mg DAILY PO Last administered on 12/17/18at 09:36; Admin Dose 81 MG; Start 12/15/18 at 09:00 Nitroglycerin (Nitroglycerin (Sl Tab) 0.4 Mg) 1 tab Q5M PRN SL .CHEST PAIN; Start 12/14/18 at 19:30 Acetaminophen (Tylenol Tab) 650 mg Q6H PRN PO .PAIN 1-3 OR TEMP; Start 12/14/18 at 19:30 Acetaminophen/ Hydrocodone Bitart ([place] (5/325)) 1 tab Q6H PRN PO .PAIN 4-[address] administered on 12/15/18at 18:09; Admin Dose 1 TAB; Start 12/14/18 at 19:30 Morphine Sulfate (morphine) 2 mg Q4H PRN IV .PAIN 7-10 Last administered on 12/15/18 23:18; Admin Dose 2 MG; Start 12/14/18 at 19:30 Atorvastatin Calcium (Lipitor) 80 mg HS PO Last administered on 12/16/18 20:45; Admin Dose 80 MG; Start 12/14/18 at 21:00 Tamsulosin HCl (Flomax) 0.4 mg HS PO Last administered on 12/16/18 20:45; Admin Dose 0.4 MG; Start 12/15/18 at 21:00 Albuterol/ Ipratropium (Duoneb) 3 ml Q6HWA RESP THERAPY HHN Last administered on 12/17/18at 07:51; Admin Dose 3 ML; Start 12/15/18 at 14:00 Albuterol/ Ipratropium (Duoneb) 3 ml Q2H RESP THERAPY PRN HHN Dyspnea; Start 12/15/18 at 11:00 Arformoterol Tartrate (Brovana (Neb)) 2 ml BID NEB Last administered on 12/17/18at 07:53; Admin Dose 2 ML; Start 12/15/18 at 11:00 Pantoprazole (Protonix Tab) 40 mg BID@06,18 PO Last administered on 12/17/18at 05:11; Admin Dose 40 MG; Start 12/15/18 at 18:00 Hydralazine HCl (Apresoline) 10 mg Q6H PRN IV SBP>160; Start 12/15/18 at 11:00 Ferric Sodium Gluconate Complex 125 mg/Sodium Chloride 110 ml @ 110 mls/hr DAILY@1300 IVPB Last administered on 12/16/18at 14:29; Admin Dose 110 MLS/HR; Start 12/16/18 at 13:00; Stop 12/20/18 at 13:59 Epoetin David-epbx (RETACRIT(esrd)) 10,000 unit MoWeFr@1700 SC ; Start 12/17/18 at 17:00 Finasteride (Proscar) 5 mg DAILY PO Last administered on 12/17/18at 09:36; Admin Dose 5 MG; Start 12/16/18 at 09:00 DEANA BRIAN December 17, 2018 09:53
--- NOTE | 2018-12-17 11:34 | CONS ---
Assessment/Plan Assessment/Plan Hospital Course (Demo Recall) 1. Acute renal failure superimposed on chronic kidney disease. His renal function is about the same as yesterday. I had a long discussion with the patient's daughter about doing hemodialysis. I told her that he is now at a level of renal function when I would recommend hemodialysis. She is reluctant to have him dialyzed at this time. I told her we would try discontinuing the diuretics and see if his renal function improves. She understands that his lung congestion is a problem and he may require the diuretics. I did explain the dialysis process and what would happen if he were to need chronic dialysis as an outpatient. 2. Anemia of chronic kidney disease and blood loss from gross hematuria. He is going to receive 2 units of blood transfusion today. 3, respiratory failure due to CHF and COPD. He is improved from yesterday. Will continue off diuretics for now. 4. Hypertension. Consultation Date/Type/Reason Admit Date/Time Dec 14, 2018 at 19:05 Initial Consult Date 12/16/18 Type of Consult Nephrology Requesting Provider: MEENA NASH MD Date/Time of Note DATE: 12/17/18 TIME: 11:31 24 HR Interval Summary Free Text/Dictation The patient is awake and alert this morning. He has no new complaints. His daughter is in the room with him and she says that he is feeling better today. He continues to have a Pleitez catheter in but the urine is much less bloody than yesterday. Constitutional: no complaints, improved Exam/Review of Systems Exam Vitals Vital Signs Date Temp Pulse Resp B/P (MAP) Pulse Ox O2 O2 Flow FiO2 Time Delivery Rate 12/17/18 97.3 79 20 153/69 97 Room Air 11:05 (97) 12/17/18 2.0 07:53 12/17/18 21 07:53 Intake and Output 12/16/18 12/16/18 12/17/18 1515:00 23:00 07:00 IntakeIntake Total 475 ml 400 ml OutputOutput Total 900 ml 1200 ml BalanceBalance -425 ml -800 ml Exam His right leg has marked lymphedema. The left leg there is trace pretibial edema. Constitutional: alert, oriented, frail Respiratory: diminished breath sounds, wheezing Cardiovascular: regular rate and rhythm Gastrointestinal: soft, non-tender Results Result Diagram: 12/17/18 0741 12/17/18 0741 Results 24hrs Laboratory Tests Test 12/17/18 07:34 12/17/18 07:41 Lab Scanned Report BLOOD TRANSFUSION White Blood Count 10.6 # Red Blood Count 2.28 L Hemoglobin 6.6 *L Hematocrit 20.4 L Mean Corpuscular Volume 89.5 Mean Corpuscular Hemoglobin 28.9 L Mean Corpuscular Hemoglobin Concent 32.4 Red Cell Distribution Width 16.6 H Platelet Count 143 Mean Platelet Volume 12.3 H Immature Granulocytes % 5.900 H Neutrophils % 82.6 H Segmented Neutrophils % (Manual) 90 H Lymphocytes % 5.3 L Lymphocytes % (Manual) 6 L Monocytes % 6.0 Monocytes % (Manual) 3 Eosinophils % 0.0 Basophils % 0.2 Metamyelocytes % (manual) 1 H Nucleated Red Blood Cells % 0.0 Immature Granulocytes # 0.620 H Neutrophils # 8.7 H Lymphocytes (Manual) 0.6 L Lymphocytes # 0.6 L Monocytes # 0.6 Monocytes # (Manual) 0.3 Eosinophils # 0.0 Basophils # 0.0 Metamyelocytes # 0.1 H Nucleated Red Blood Cells # 0.0 Pathologist Review (Hematology) YES Platelet Estimate NORMAL Giant Platelets 1 H Polychromasia 2+ Anisocytosis 1+ Sodium Level 145 H Potassium Level 4.4 Chloride Level 113 H Carbon Dioxide Level 23 Anion Gap 9 Blood Urea Nitrogen 117 H Creatinine 3.18 H Est Glomerular Filtrat Rate mL/min Glucose Level 112 # Calcium Level 8.5 Phosphorus Level 5.0 H Magnesium Level 2.0 Medications Medication Current Medications IV Flush (NS 3 ml) 3 ml PER PROTOCOL IV ; Start 12/14/18 at 19:30 Aspirin (Aspirin) 81 mg DAILY PO Last administered on 12/17/18at 09:36; Admin Dose 81 MG; Start 12/15/18 at 09:00 Nitroglycerin (Nitroglycerin (Sl Tab) 0.4 Mg) 1 tab Q5M PRN SL .CHEST PAIN; Start 12/14/18 at 19:30 Acetaminophen (Tylenol Tab) 650 mg Q6H PRN PO .PAIN 1-3 OR TEMP; Start 12/14/18 at 19:30 Acetaminophen/ Hydrocodone Bitart ([place] (5/325)) 1 tab Q6H PRN PO .PAIN 4-6 Last administered on 12/15/18 18:09; Admin Dose 1 TAB; Start 12/14/18 at 19:30 Morphine Sulfate (morphine) 2 mg Q4H PRN IV .PAIN 7-10 Last administered on 12/15/18 23:18; Admin Dose 2 MG; Start 12/14/18 at 19:30 Atorvastatin Calcium (Lipitor) 80 mg HS PO Last administered on 12/16/18 20:45; Admin Dose 80 MG; Start 12/14/18 at 21:00 Tamsulosin HCl (Flomax) 0.4 mg HS PO Last administered on 12/16/18 20:45; Admin Dose 0.4 MG; Start 12/15/18 at 21:00 Albuterol/ Ipratropium (Duoneb) 3 ml Q6HWA RESP THERAPY HHN Last administered on 12/17/18 07:51; Admin Dose 3 ML; Start 12/15/18 at 14:00 Albuterol/ Ipratropium (Duoneb) 3 ml Q2H RESP THERAPY PRN HHN Dyspnea; Start 12/15/18 at 11:00 Arformoterol Tartrate (Brovana (Neb)) 2 ml BID NEB Last administered on 12/17/18 07:53; Admin Dose 2 ML; Start 12/15/18 at 11:00 Pantoprazole (Protonix Tab) 40 mg BID@06,18 PO Last administered on 12/17/18at 05:11; Admin Dose 40 MG; Start 12/15/18 at 18:00 Hydralazine HCl (Apresoline) 10 mg Q6H PRN IV SBP>160; Start 12/15/18 at 11:00 Ferric Sodium Gluconate Complex 125 mg/Sodium Chloride 110 ml @ 110 mls/hr DAILY@1300 IVPB Last administered on 12/16/18 14:29; Admin Dose 110 MLS/HR; Start 12/16/18 at 13:00; Stop 12/20/18 at 13:59 Epoetin Daivd-epbx (RETACRIT(esrd)) 10,000 unit MoWeFr@1700 SC ; Start 12/17/18 at 17:00 Finasteride (Proscar) 5 mg DAILY PO Last administered on 12/17/18 09:36; Admin Dose 5 MG; Start 12/16/18 at 09:00 MEENA NASH MD December 17, 2018 11:34
[2018-12-17] MEDS: SOD FERRIC GLUC COMPLX 125 MG in SOD CHLORIDE 0.9% 100 ML IVPB SCH (12:54)
[2018-12-17] MEDS: EPOETIN ALFA-EPBX (ESRD) 10,000 UNIT/ML VIAL SC SCH (17:43)
[2018-12-17] MEDS: TAMSULOSIN (SR) 0.4 MG CAP PO SCH (21:53)
[2018-12-17] MEDS: ATORVASTATIN 80 MG TAB PO SCH (21:53)
[2018-12-17] MEDS: hydrALAzine 20 MG INJ IV PRN (21:54)
[2018-12-18] VITALS (11 sets, daily range): BP systolic 149–164; BP diastolic 68–82; PULSE 74–97; RESP 20–22
[2018-12-18] MEDS: HYDROCODONE/APAP (5/325) TAB PO PRN (02:11)
[2018-12-18] MEDS: PANTOPRAZOLE (EC) 40 MG TAB PO SCH ×2 (06:59→18:00)
--- NOTE | 2018-12-18 08:12 | CONS ---
Consult Date/Type/Reason Admit Date/Time Dec 14, 2018 at 19:05 Initial Consult Date 12/16/18 Type of Consultation: cv Requesting Provider: MEENA NASH MD Date/Time of Note DATE: 12/18/18 TIME: 08:11 Subjective cardiology follow up note S; D/W staff and son and tele was reviewed. pt remains in NSR Discussed with son no chest pain or pressure or palpitations less sob today feels better now but according to the son patient gets short of breath when he is agitated d/w daughter. pt has been intermittently confused but cooperative now O: General: Elderly gentleman appears to be in no acute distress HEENT: NC/AT. pupils are equal. round. NECK: . no stridor. CV: RRR. systolic murmur; no gallop or rubs. PULM: + mild rhonchi.+ wheezing GI: SOFT, NT, ND, no rebound or guarding Extremity: Right lower extremity with lymphedema. Trace left lower extremity edema neuro: awake and alert, Psych:calm now rectal: deferred : s/p herrera in place EKG was personally within normal sinus rhythm with right bundle branch block. Septal infarct age undetermined Echocardiogram was personally reviewed which shows: There is moderate enlargement of left atrium. Normal left ventricular systolic function. Normal left ventricular cavity size. Mild concentric left ventricular hypertrophy. Ejection fraction is visually estimated at 55 %. Abnormal Diastolic Function. Normal appearance of the mitral valve. Mild mitral annular calcification. Trace mitral regurgitation. No significant aortic stenosis or insufficiency. Aortic cusps appear mildly calcified. Normal appearance of the tricuspid valve. Estimated peak PA systolic pressure 60 mmHg. There is mild to moderate tricuspid regurgitation. Dilated IVC without respiratory collapse consistent with elevated right atrial pressure. Chest x-ray done 12/06/2018 shows: Mild pulmonary vascular congestion with interstitial edema. Strandy consolidation in both midlung zones laterally can be seen with alveolar edema or infection Objective Vitals Vital Signs Date Temp Pulse Resp B/P (MAP) Pulse Ox O2 O2 Flow FiO2 Time Delivery Rate 12/18/18 Nasal 2.0 07:55 Cannula 12/18/18 97.8 80 20 160/72 94 07:25 (101) 12/17/18 21 19:51 Intake and Output 12/17/18 12/17/18 12/18/18 1515:00 23:00 07:00 IntakeIntake Total 960 ml 950 ml OutputOutput Total 1300 ml 1950 ml BalanceBalance -340 ml -1000 ml Results/Medications Result Diagram: 12/18/18 0609 12/18/18 0608 Results 24 hrs Laboratory Tests Test 12/18/18 06:08 12/18/18 06:09 Sodium Level 146 H Potassium Level 4.1 Chloride Level 113 H Carbon Dioxide Level 23 Anion Gap 10 Blood Urea Nitrogen 101 H Creatinine 2.47 H Est Glomerular Filtrat Rate mL/min Glucose Level 118 Calcium Level 9.3 Phosphorus Level 4.6 Magnesium Level 1.9 White Blood Count 13.4 #H Red Blood Count 2.89 #L Hemoglobin 8.3 #L Hematocrit 25.2 #L Mean Corpuscular Volume 87.2 Mean Corpuscular Hemoglobin 28.7 L Mean Corpuscular Hemoglobin Concent 32.9 Red Cell Distribution Width 16.4 H Platelet Count 147 Mean Platelet Volume 12.0 H Immature Granulocytes % 8.600 H Neutrophils % Lymphocytes % Monocytes % Eosinophils % Basophils % Nucleated Red Blood Cells % 0.3 H Immature Granulocytes # 1.160 H Neutrophils # Lymphocytes # Monocytes # Eosinophils # Basophils # Nucleated Red Blood Cells # Home Meds Reported Medications Fenofibrate Nanocrystallized* (Tricor*) 145 Mg Tablet 09/19/10 Azithromycin* (Zithromax*) 250 Mg Tablet 09/19/10 Rosuvastatin Calcium* (Crestor*) 20 Mg Tablet 09/19/10 Dicyclomine Hcl* (Bentyl*) 20 Mg Tablet 09/19/10 Clopidogrel Bisulfate (Plavix) 75 Mg Tablet 09/19/10 Rabeprazole Sodium* (Aciphex*) 20 Mg Tablet. 09/19/10 Terazosin Hcl* (Terazosin Hcl*) 5 Mg Capsule 09/19/10 Aspirin (Adult Low Dose Aspirin) 81 Mg Tablet. 09/19/10 Furosemide (Lasix) 40 Mg Tab 09/19/10 Medications Current Medications IV Flush (NS 3 ml) 3 ml PER PROTOCOL IV ; Start 12/14/18 at 19:30 Aspirin (Aspirin) 81 mg DAILY PO Last administered on 12/17/18at 09:36; Admin Dose 81 MG; Start 12/15/18 at 09:00 Nitroglycerin (Nitroglycerin (Sl Tab) 0.4 Mg) 1 tab Q5M PRN SL .CHEST PAIN; Start 12/14/18 at 19:30 Acetaminophen (Tylenol Tab) 650 mg Q6H PRN PO .PAIN 1-3 OR TEMP; Start 12/14/18 at 19:30 Acetaminophen/ Hydrocodone Bitart ([place] (5/325)) 1 tab Q6H PRN PO .PAIN 4-6 Last administered on 12/18/18 02:11; Admin Dose 1 TAB; Start 12/14/18 at 19:30 Morphine Sulfate (morphine) 2 mg Q4H PRN IV .PAIN 7-10 Last administered on 12/15/18 23:18; Admin Dose 2 MG; Start 12/14/18 at 19:30 Atorvastatin Calcium (Lipitor) 80 mg HS PO Last administered on 12/17/18 21:53; Admin Dose 80 MG; Start 12/14/18 at 21:00 Tamsulosin HCl (Flomax) 0.4 mg HS PO Last administered on 12/17/18 21:53; Admin Dose 0.4 MG; Start 12/15/18 at 21:00 Albuterol/ Ipratropium (Duoneb) 3 ml Q6HWA RESP THERAPY HHN Last administered on 12/17/18 19:51; Admin Dose 3 ML; Start 12/15/18 at 14:00 Albuterol/ Ipratropium (Duoneb) 3 ml Q2H RESP THERAPY PRN HHN Dyspnea; Start 12/15/18 at 11:00 Arformoterol Tartrate (Brovana (Neb)) 2 ml BID NEB Last administered on 12/17/18 19:51; Admin Dose 2 ML; Start 12/15/18 at 11:00 Pantoprazole (Protonix Tab) 40 mg BID@06,18 PO Last administered on 12/18/18 06:59; Admin Dose 40 MG; Start 12/15/18 at 18:00 Ferric Sodium Gluconate Complex 125 mg/Sodium Chloride 110 ml @ 110 mls/hr DAILY@1300 IVPB Last administered on 12/17/18 12:54; Admin Dose 110 MLS/HR; S tart 12/16/18 at 13:00; Stop 12/20/18 at 13:59 Epoetin David-epbx (RETACRIT(esrd)) 10,000 unit MoWeFr@1700 SC Last administered on 12/17/18at 17:43; Admin Dose 10,000 UNIT; Start 12/17/18 at 17:00 Finasteride (Proscar) 5 mg DAILY PO Last administered on 12/17/18at 09:36; Admin Dose 5 MG; Start 12/16/18 at 09:00 Hydralazine HCl (Apresoline) 10 mg Q4 PRN IV SBP>160 Last administered on 12/17/18at 21:54; Admin Dose 10 MG; Start 12/17/18 at 21:30 Assessment/Plan Hospital Course (Demo Recall) 1. Abnormal troponin most likely secondary to below versus type II non-ST elevation myocardial infarction 2. Hypoxemic respiratory failure 3. COPD exacerbation, possible pneumonia 4. 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 Hypertension 6. Dyslipidemia 7 for history of coronary artery disease 8. History of coronary bypass graft 9. History of PCI 10. hematuria 11. Anemia 12. Renal failure probably chronic kidney disease Recommendations: Continue with medical therapy. Aspirin will be continued as long as okay with urology. Nebulizer treatment pulmonary care as per internal medicine. Echocardiogram showed preserved LV systolic function but Patient does have pulmonary hypertension Not on any KYLIE inhibitor or ARB due to his renal failure. f/u with renal consultation rec f/u urology rec s/p sharon now Other invasive options such as a coronary angiogram discussed with the patient and the daughter on admission. it Was explained that unless patient is willing to go on dialysis is best not to pursue coronary angiography because there is a higher chance of require him to go on dialysis. Patient and family said they do not want to be dialyzed and are not ready for it at this point. We will continue with medical therapy for now Thank you for his referral. We will continue to follow along with you PIPO GABRIEL MD [facility] PIPO GABRIEL MD December 18, 2018 08:12
[2018-12-18] MEDS: ALBUTEROL/IPRATROPIUM (NEB) 3 ML AMP HHN SCH ×3 (09:04→20:25)
[2018-12-18] MEDS: ARFORMOTEROL TARTRATE 15MCG/2 ML AMP NEB SCH ×2 (09:04→20:25)
[2018-12-18] MEDS: ASPIRIN 81 MG TAB PO SCH (09:56)
[2018-12-18] MEDS: FINASTERIDE 5 MG TAB PO SCH (09:56)
[2018-12-18] MEDS: LORAZEPAM 0.5 MG TAB PO PRN ×3 (09:57→23:39)
--- NOTE | 2018-12-18 10:25 | PN ---
Date/Time of Note Date/Time of Note DATE: 12/18/18 TIME: 10:23 Assessment/Plan VTE Prophylaxis Risk score (from [facility] [place])>0 risk: 11 SCD applied (from [facility] [place]): No SCD contraindicated: other Pharmacological prophylaxis: NA/contraindicated Pharm contraindication: anticoag not tolerated Lines/Catheters IV Catheter Type (from [facility]): Saline Lock Urinary Cath still in place: Yes Reason Cath still needed: urinary retention Assessment/Plan Hospital Course SUBJECTIVE: Complains of some dyspnea today. Denies any chest pain. Remains on continuous bladder irrigation. OBJECTIVE: Physical Exam General: Obese, 88 year-old female lying in bed in mild to moderate respiratory distress. HEENT: Normocephalic, atraumatic. Eyes: Anicteric sclerae, conjunctivae clear. ENT: Nasal septum midline, oral mucosa moist. Neck supple. Respiratory: Bilaterally diminished breath sounds. Minimal use of accessory muscles of respiration. Bilateral expiratory wheezing. Cardiovascular: S1, S2 heard. Regular rate and rhythm. Abdomen: Soft, nontender, and nondistended. Bowel sounds positive in all 4 quadrants. Genitourinary: Pleitez catheter in place. Extremities: No cyanosis, no clubbing. Bilateral lower extremity edema. Right lower extremity edema greater than the left. Neurologic: Cranial nerves II through XII grossly intact. The patient is awake, alert, and oriented. Labs & Vitals per chart ASSESSMENT & PLAN 88-year-old male with comorbidities including CAD status post CABG, dyslipidemia , obesity, chronic kidney disease, prostate hypertrophy, and hypertension, who came to the emergency room with chief complaint of dyspnea and wheezing that has been progressively getting worse. Patient was also noticed to have elevated troponins in the emergency room. The patient's chest x-ray was showing evidence of mild pulmonary vascular congestion with interstitial edema. The patient was admitted to inpatient setting for further treatment and evaluation. 1. Acute respiratory failure. -Hypoxic. -Most probably secondary to underlying reactive airway disease and CHF exacerbation. -Continue inhaled bronchodilators AIDA and LABA. -S/P tapering dose of steroids. -Continue diuresis as renal function allows. 2. COPD exacerbation. -Remote history of smoking over years. -Continue inhaled bronchodilators ADIA and LABA. -S/P tapering dose of steroids. -Pulmonology following. 3. NSTEMI. -Known history of CAD, status post CABG. -Continue aspirin. -Continue high-dose statins. -Cardiology following. -Patient/family refusing left heart cath. 4. Acute on chronic kidney disease. -Nephrology following. 5. Benign prostatic hypertrophy. -Continue tamsulosin and finasteride. 6. Hypertension. -Blood pressure well controlled off antihypertensives. 7. Dyslipidemia. -Continue statins. 8. Hematuria from traumatic pulling of Pleitez catheter by the patient. -Being followed by Urology. -On CBI. 9. Normocytic anemia -Etiology could be multifactorial including the acute blood loss from traumatic pulling of the Pleitez. -Transfuse blood products as indicated. 10. Chronic right lower extremity lymphedema. -Venous Doppler negative for any DVT. 11. CHF exacerbation. -Diastolic dysfunction. -Continue diuresis as renal function allows. 12. Pulmonary hypertension. -PA pressure of 60 mm Hg. -Continue supplemental O2. 13. Fluids, electrolytes, and nutrition. -Renal diet. 14. DVT prophylaxis. -B/L SCDs. 15. Plan. -Continue inhaled bronchodilators. -Continue inpatient monitoring. -Await clinical improvement. Plan of care was explained to the patient's daughter, who was at the bedside. The patient was seen in collaboration with . Result Diagram: 12/18/18 0609 12/18/18 0608 Results 24hrs Laboratory Tests Test 12/18/18 06:08 12/18/18 06:09 12/18/18 08:24 Sodium Level 146 H Potassium Level 4.1 Chloride Level 113 H Carbon Dioxide Level 23 Anion Gap 10 Blood Urea Nitrogen 101 H Creatinine 2.47 H Est Glomerular Filtrat Rate mL/min Glucose Level 118 Calcium Level 9.3 Phosphorus Level 4.6 Magnesium Level 1.9 White Blood Count 13.4 #H Red Blood Count 2.89 #L Hemoglobin 8.3 #L Hematocrit 25.2 #L Mean Corpuscular Volume 87.2 Mean Corpuscular Hemoglobin 28.7 L Mean Corpuscular 32.9 Hemoglobin Concent Red Cell Distribution Width 16.4 H Platelet Count 147 Mean Platelet Volume 12.0 H Immature Granulocytes % 8.600 H Neutrophils % Segmented Neutrophils % (Manual) 85 H Band Neutrophils % (Manual) 3 Lymphocytes % Lymphocytes % (Manual) 5 L Monocytes % Monocytes % (Manual) 4 Eosinophils % Basophils % Myelocytes % (Manual) 3 H Nucleated Red Blood Cells % 0.3 H Immature Granulocytes # 1.160 H Neutrophils # Neutrophils # (Manual) 11.4 H Band Neutrophils # 0.4 Lymphocytes (Manual) 0.6 L Lymphocytes # Monocytes # Monocytes # (Manual) 0.5 Eosinophils # Basophils # Myelocytes # 0.4 H Nucleated Red Blood Cells # Platelet Estimate NORMAL Polychromasia 1+ Hypochromasia 2+ Poikilocytosis 1+ Anisocytosis 2+ Microcytosis 1+ Macrocytosis 1+ Spherocytes 1+ Lab Scanned Report BLOOD TRANSFUSION Exam/Review of Systems Exam Vitals Vital Signs Date Temp Pulse Resp B/P (MAP) Pulse Ox O2 O2 Flow FiO2 Time Delivery Rate 12/18/18 74 18 93 21 09:05 12/18/18 2.0 09:05 12/18/18 Nasal 07:55 Cannula 12/18/18 149/82 07:30 (104) 12/18/18 97.8 07:25 Intake and Output 12/17/18 12/17/18 12/18/18 1515:00 23:00 07:00 IntakeIntake Total 960 ml 950 ml OutputOutput Total 1300 ml 1950 ml BalanceBalance -340 ml -1000 ml Results Results 24hrs Laboratory Tests Test 12/18/18 06:08 12/18/18 06:09 12/18/18 08:24 Sodium Level 146 H Potassium Level 4.1 Chloride Level 113 H Carbon Dioxide Level 23 Anion Gap 10 Blood Urea Nitrogen 101 H Creatinine 2.47 H Est Glomerular Filtrat Rate mL/min Glucose Level 118 Calcium Level 9.3 Phosphorus Level 4.6 Magnesium Level 1.9 White Blood Count 13.4 #H Red Blood Count 2.89 #L Hemoglobin 8.3 #L Hematocrit 25.2 #L Mean Corpuscular Volume 87.2 Mean Corpuscular Hemoglobin 28.7 L Mean Corpuscular 32.9 Hemoglobin Concent Red Cell Distribution Width 16.4 H Platelet Count 147 Mean Platelet Volume 12.0 H Immature Granulocytes % 8.600 H Neutrophils % Segmented Neutrophils % (Manual) 85 H Band Neutrophils % (Manual) 3 Lymphocytes % Lymphocytes % (Manual) 5 L Monocytes % Monocytes % (Manual) 4 Eosinophils % Basophils % Myelocytes % (Manual) 3 H Nucleated Red Blood Cells % 0.3 H Immature Granulocytes # 1.160 H Neutrophils # Neutrophils # (Manual) 11.4 H Band Neutrophils # 0.4 Lymphocytes (Manual) 0.6 L Lymphocytes # Monocytes # Monocytes # (Manual) 0.5 Eosinophils # Basophils # Myelocytes # 0.4 H Nucleated Red Blood Cells # Platelet Estimate NORMAL Polychromasia 1+ Hypochromasia 2+ Poikilocytosis 1+ Anisocytosis 2+ Microcytosis 1+ Macrocytosis 1+ Spherocytes 1+ Lab Scanned Report BLOOD TRANSFUSION Medications Medication Current Medications IV Flush (NS 3 ml) 3 ml PER PROTOCOL IV ; Start 12/14/18 at 19:30 Aspirin (Aspirin) 81 mg DAILY PO Last administered on 12/18/18 09:56; Admin Dose 81 MG; Start 12/15/18 at 09:00 Nitroglycerin (Nitroglycerin (Sl Tab) 0.4 Mg) 1 tab Q5M PRN SL .CHEST PAIN; Start 12/14/18 at 19:30 Acetaminophen (Tylenol Tab) 650 mg Q6H PRN PO .PAIN 1-3 OR TEMP; Start 12/14/18 at 19:30 Acetaminophen/ Hydrocodone Bitart ([place] (5/325)) 1 tab Q6H PRN PO .PAIN 4-6 Last administered on 12/18/18 02:11; Admin Dose 1 TAB; Start 12/14/18 at 19:30 Morphine Sulfate (morphine) 2 mg Q4H PRN IV .PAIN 7-10 Last administered on 12/15/18 23:18; Admin Dose 2 MG; Start 12/14/18 at 19:30 Atorvastatin Calcium (Lipitor) 80 mg HS PO Last administered on 12/17/18 21:53; Admin Dose 80 MG; Start 12/14/18 at 21:00 Tamsulosin HCl (Flomax) 0.4 mg HS PO Last administered on 12/17/18 21:53; Admin Dose 0.4 MG; Start 12/15/18 at 21:00 Albuterol/ Ipratropium (Duoneb) 3 ml Q6HWA RESP THERAPY HHN Last administered on 12/18/18 09:04; Admin Dose 3 ML; Start 12/15/18 at 14:00 Albuterol/ Ipratropium (Duoneb) 3 ml Q2H RESP THERAPY PRN HHN Dyspnea; Start 12/15/18 at 11:00 Arformoterol Tartrate (Brovana (Neb)) 2 ml BID NEB Last administered on 12/18/18 09:04; Admin Dose 2 ML; Start 12/15/18 at 11:00 Pantoprazole (Protonix Tab) 40 mg BID@06,18 PO Last administered on 12/18/18 06:59; Admin Dose 40 MG; Start 12/15/18 at 18:00 Ferric Sodium Gluconate Complex 125 mg/Sodium Chloride 110 ml @ 110 mls/hr DAILY@1300 IVPB Last administered on 12/17/18 12:54; Admin Dose 110 MLS/HR; Start 12/16/18 at 13:00; Stop 12/20/18 at 13:59 Epoetin David-epbx (RETACRIT(esrd)) 10,000 unit MoWeFr@1700 SC Last administered on 12/17/18 17:43; Admin Dose 10,000 UNIT; Start 12/17/18 at 17:00 Finasteride (Proscar) 5 mg DAILY PO Last administered on 12/18/18 09:56; Admin Dose 5 MG; Start 12/16/18 at 09:00 Hydralazine HCl (Apresoline) 10 mg Q4 PRN IV SBP>160 Last administered on 12/17/18 21:54; Admin Dose 10 MG; Start 12/17/18 at 21:30 Lorazepam (Ativan) 0.5 mg Q6H PRN PO ANXIETY Last administered on 12/18/18at 0 9:57; Admin Dose 0.5 MG; Start 12/18/18 at 10:00 GAMA MUNROE NP December 18, 2018 10:25
--- NOTE | 2018-12-18 10:34 | CONS ---
DATE OF ADMISSION: 12/14/2018 DATE OF CONSULTATION: 12/18/2018 HISTORY OF PRESENT ILLNESS: The patient is doing very well this morning since he was seen yesterday in the morning time. He had an old clot in the Pleitez catheter, which resulted in leaking around the Pleitez catheter. The nurse irrigated out an old clot and then the Pleitez catheter was draining well. At this time, continuous bladder irrigation was reinitiated. Yesterday when I suggested discontinuat ion of continuous bladder irrigation, the family member became very upset, stating this is not time t o stop the continuous bladder irrigation and they wanted this to be continued. The patient does not speak Pakistani. Today, the patient is resting comfortably in bed with very slow continuous bladder ir rigation. The efflux is noted to be clear to very light pink. PHYSICAL EXAMINATION: VITAL SIGNS: Blood pressure 160/72, heart rate 80, respirations 20, temperature 97.8. ABDOMEN: Soft, nondistended, nontender, no palpable masses. LYMPH: No CVA tenderness, no masses. GENITALIA: Normal shaft penis, normal scrotum, testicles and epididymis. CBI with very light pink t o clear urine on a very slow drip. Hemoglobin yesterday 6.6, hemoglobin today 8.3, creatinine 2.47. IMPRESSION: Traumatic removal of Pleitez catheter with subsequent gross hematuria, which has resolved renal insufficiency. PLAN: I have suggested to discontinue continuous bladder irrigation and keeps the Pleitez to a leg bag . The family member became very upset with me and does not want this to be stopped as they are dicta ting their own medical care and have very strong feelings towards the above and as I am only covering for Dr. Uriarte. We will continue CBI and discontinue CBI when family members agreed to the above. I would then suggest removal of Pleitez catheter when strict I's and O's are no longer required. Foll ow up with Dr. Uriarte. We will sign off at this time. Please reconsult as needed. Dictated By: GEOFFREY RUANO MD EGR/NTS Conf#: [id number] DID#: [id number] CC: LAUREN NELSON MD; THIERRY URIARTE MD; GEOFFREY RUANO MD;*EndCC*
--- NOTE | 2018-12-18 11:35 | CONS ---
Assessment/Plan Assessment/Plan Assessment/Plan (Daily) Assessment and recommendations; 1. Patient admitted for COPD exacerbation with interval resolution. 2. Other comorbidities include history of prior CABG, chronic renal insufficiency, hypertension and CHF. Continue current supportive care. Consider discharge. Patient's family has declined coronary angiography on account of underlying kidney disease. Consultation Date/Type/Reason Admit Date/Time Dec 14, 2018 at 19:05 Initial Consult Date 12/16/18 Type of Consult Pulmonary Patient is a pleasant 88-year-old male who was admitted to the hospital with complaints of shortness of breath going on for the past 2 days prior to admission. Patient denies having any chest pain. Upon evaluation further work- up was done including a chest x-ray which is showing pulmonary edema with elevation in troponin as well as significant elevation in BNP level. Patient has been started on diuretic regimen. Coronary angiography was discussed with the patient by the oracle business analyst however because of history of chronic renal insufficiency the family declined owing to risk of going on hemodialysis due to contrast injury. Patient has improved since admission and denies any further shortness of breath. Denies any coughing, fever, chest pain, angina. Any wheezing. By the time I saw him in the room patient appeared very comfortable and did not appear to be in any distress whatsoever. Past medical history; 1. Chronic renal insufficiency 2. History of prior CABG 3. Hypertension 4. COPD 5. Anemia 6. BPH 7. CHF Medications; reviewed Allergies; none Social history; patient does have a history of smoking. Family history; noncontributory. Patient does have a supportive family. 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 Review of systems; denies any headache, visual changes, sinus symptoms. Sh ortness of breath has improved. Denies any chest pain, angina any wheezing, sputum production or hemoptysis. Denies any fever or chills. Denies any abdominal pain, nausea vomiting. Any melena or hematochezia. Does complain of chronic frequency and urgency of urination. Denies any orthopnea. Any weight loss. General exam; elderly male, laying comfortably in bed. Awake and alert. Currently in no distress. Requesting Provider: MEENA NASH MD Date/Time of Note DATE: 12/18/18 TIME: 11:33 24 HR Interval Summary Free Text/Dictation Patient's condition is stable. Denies any further shortness of breath. Any coughing or wheezing. General exam; elderly male, currently no distress. Exam/Review of Systems Exam Vitals Vital Signs Date Temp Pulse Resp B/P (MAP) Pulse Ox O2 O2 Flow FiO2 Time Delivery Rate 12/18/18 98.7 89 20 156/71 95 Nasal 11:11 (99) Cannula 12/18/18 21 09:05 12/18/18 2.0 09:05 Intake and Output 12/17/18 12/17/18 12/18/18 1515:00 23:00 07:00 IntakeIntake Total 960 ml 950 ml OutputOutput Total 1300 ml 1950 ml BalanceBalance -340 ml -1000 ml Exam H EENT exam; supple neck, no JVD. No lymphadenopathy. Midline trachea. No thyromegaly. Chest exam; diminished but clear breath sounds. S1-S2 audible, no murmurs. Regular rhythm. There is a well-healed sternal scar. Abdomen exam; soft, no organomegaly. Bowel sounds audible. Extremity exam; no peripheral edema or clubbing. SMOKE JUMPER exam; no focal deficit. Results Result Diagram: 12/18/18 0609 12/18/18 0608 Results 24hrs Laboratory Tests Test 12/18/18 06:08 12/18/18 06:09 12/18/18 08:24 Sodium Level 146 H Potassium Level 4.1 Chloride Level 113 H Carbon Dioxide Level 23 Anion Gap 10 Blood Urea Nitrogen 101 H Creatinine 2.47 H Est Glomerular Filtrat Rate mL/min Glucose Level 118 Calcium Level 9.3 Phosphorus Level 4.6 Magnesium Level 1.9 White Blood Count 13.4 #H Red Blood Count 2.89 #L Hemoglobin 8.3 #L Hematocrit 25.2 #L Mean Corpuscular Volume 87.2 Mean Corpuscular Hemoglobin 28.7 L Mean Corpuscular 32.9 Hemoglobin Concent Red Cell Distribution Width 16.4 H Platelet Count 147 Mean Platelet Volume 12.0 H Immature Granulocytes % 8.600 H Neutrophils % Segmented Neutrophils % (Manual) 85 H Band Neutrophils % (Manual) 3 Lymphocytes % Lymphocytes % (Manual) 5 L Monocytes % Monocytes % (Manual) 4 Eosinophils % Basophils % Myelocytes % (Manual) 3 H Nucleated Red Blood Cells % 0.3 H Immature Granulocytes # 1.160 H Neutrophils # Neutrophils # (Manual) 11.4 H Band Neutrophils # 0.4 Lymphocytes (Manual) 0.6 L Lymphocytes # Monocytes # Monocytes # (Manual) 0.5 Eosinophils # Basophils # Myelocytes # 0.4 H Nucleated Red Blood Cells # Platelet Estimate NORMAL Polychromasia 1+ Hypochromasia 2+ Poikilocytosis 1+ Anisocytosis 2+ Microcytosis 1+ Macrocytosis 1+ Spherocytes 1+ Lab Scanned Report BLOOD TRANSFUSION Medications Medication Current Medications IV Flush (NS 3 ml) 3 ml PER PROTOCOL IV ; Start 12/14/18 at 19:30 Aspirin (Aspirin) 81 mg DAILY PO Last administered on 12/18/18 09:56; Admin Dose 81 MG; Start 12/15/18 at 09:00 Nitroglycerin (Nitroglycerin (Sl Tab) 0.4 Mg) 1 tab Q5M PRN SL .CHEST PAIN; Start 12/14/18 at 19:30 Acetaminophen (Tylenol Tab) 650 mg Q6H PRN PO .PAIN 1-3 OR TEMP; Start 12/14/18 at 19:30 Acetaminophen/ Hydrocodone Bitart ([place] (5/325)) 1 tab Q6H PRN PO .PAIN 4-6 Last administered on 12/18/18 02:11; Admin Dose 1 TAB; Start 12/14/18 at 19:30 Morphine Sulfate (morphine) 2 mg Q4H PRN IV .PAIN 7-10 Last administered on 12/15/18at 23:18; Admin Dose 2 MG; Start 12/14/18 at 19:30 Atorvastatin Calcium (Lipitor) 80 mg HS PO Last administered on 12/17/18 21:53; Admin Dose 80 MG; Start 12/14/18 at 21:00 Tamsulosin HCl (Flomax) 0.4 mg HS PO Last administered on 12/17/18 21:53; Admin Dose 0.4 MG; Start 12/15/18 at 21:00 Albuterol/ Ipratropium (Duoneb) 3 ml Q6HWA RESP THERAPY HHN Last administered on 12/18/18 09:04; Admin Dose 3 ML; Start 12/15/18 at 14:00 Albuterol/ Ipratropium (Duoneb) 3 ml Q2H RESP THERAPY PRN HHN Dyspnea; Start 12/15/18 at 11:00 Arformoterol Tartrate (Brovana (Neb)) 2 ml BID NEB Last administered on 12/18/18 09:04; Admin Dose 2 ML; Start 12/15/18 at 11:00 Pantoprazole (Protonix Tab) 40 mg BID@06,18 PO Last administered on 12/18/18 06:59; Admin Dose 40 MG; Start 12/15/18 at 18:00 Ferric Sodium Gluconate Complex 125 mg/Sodium Chloride 110 ml @ 110 mls/hr DAILY@1300 IVPB Last administered on 12/17/18 12:54; Admin Dose 110 MLS/HR; Start 12/16/18 at 13:00; Stop 12/20/18 at 13:59 Epoetin David-epbx (RETACRIT(esrd)) 10,000 unit MoWeFr@1700 SC Last administered on 12/17/18 17:43; Admin Dose 10,000 UNIT; Start 12/17/18 at 17:00 Finasteride (Proscar) 5 mg DAILY PO Last administered on 12/18/18 09:56; Admin Dose 5 MG; Start 12/16/18 at 09:00 Hydralazine HCl (Apresoline) 10 mg Q4 PRN IV SBP>160 Last administered on 12/17/18 21:54; Admin Dose 10 MG; Start 12/17/18 at 21:30 Lorazepam (Ativan) 0.5 mg Q6H PRN PO ANXIETY Last administered on 12/18/18 09:57; Admin Dose 0.5 MG; Start 12/18/18 at 10:00 DEANA BRIAN December 18, 2018 11:35
[2018-12-18] MEDS: SOD FERRIC GLUC COMPLX 125 MG in SOD CHLORIDE 0.9% 100 ML IVPB SCH (13:21)
--- NOTE | 2018-12-18 18:07 | CONS ---
Assessment/Plan Assessment/Plan Hospital Course (Demo Recall) 1. Acute renal failure superimposed on chronic kidney disease. His renal function is better today . If his renal function continues to improve then he would not need dialysis now . 2. Anemia of chronic kidney disease and blood loss from gross hematuria. His hemoglobin is higher and stable . 3, respiratory failure due to CHF and COPD. He is improving each day . Will continue off diuretics for now. 4. Hypertension. Consultation Date/Type/Reason Admit Date/Time Dec 14, 2018 at 19:05 Initial Consult Date 12/16/18 Type of Consult Nephrology Requesting Provider: MEENA NASH MD Date/Time of Note DATE: 12/18/18 TIME: 18:00 24 HR Interval Summary Free Text/Dictation Patient is awake and alert . His daughter is in the room with him . She says that he is feeling better . Constitutional: improved Exam/Review of Systems Exam Vitals Vital Signs Date Temp Pulse Resp B/P (MAP) Pulse Ox O2 O2 Flow FiO2 Time Delivery Rate 12/18/18 85 16:00 12/18/18 97.5 22 164/74 94 Room Air 15:18 (104) 12/18/18 21 13:50 12/18/18 2.0 09:05 Intake and Output 12/17/18 12/17/18 12/18/18 1515:00 23:00 07:00 IntakeIntake Total 960 ml 950 ml OutputOutput Total 1300 ml 1950 ml BalanceBalance -340 ml -1000 ml Exam R leg has massive lymphedema , L leg trace pedal edema . Constitutional: alert, oriented, frail Respiratory: clear to auscultation Cardiovascular: regular rate and rhythm Gastrointestinal: soft, non-tender Results Result Diagram: 12/18/18 0609 12/18/18 0608 Results 24hrs Laboratory Tests Test 12/18/18 06:08 12/18/18 06:09 12/18/18 08:24 Sodium Level 146 H Potassium Level 4.1 Chloride Level 113 H Carbon Dioxide Level 23 Anion Gap 10 Blood Urea Nitrogen 101 H Creatinine 2.47 H Est Glomerular Filtrat Rate mL/min Glucose Level 118 Calcium Level 9.3 Phosphorus Level 4.6 Magnesium Level 1.9 White Blood Count 13.4 #H Red Blood Count 2.89 #L Hemoglobin 8.3 #L Hematocrit 25.2 #L Mean Corpuscular Volume 87.2 Mean Corpuscular Hemoglobin 28.7 L Mean Corpuscular 32.9 Hemoglobin Concent Red Cell Distribution Width 16.4 H Platelet Count 147 Mean Platelet Volume 12.0 H Immature Granulocytes % 8.600 H Neutrophils % Segmented Neutrophils % (Manual) 85 H Band Neutrophils % (Manual) 3 Lymphocytes % Lymphocytes % (Manual) 5 L Monocytes % Monocytes % (Manual) 4 Eosinophils % Basophils % Myelocytes % (Manual) 3 H Nucleated Red Blood Cells % 0.3 H Immature Granulocytes # 1.160 H Neutrophils # Neutrophils # (Manual) 11.4 H Band Neutrophils # 0.4 Lymphocytes (Manual) 0.6 L Lymphocytes # Monocytes # Monocytes # (Manual) 0.5 Eosinophils # Basophils # Myelocytes # 0.4 H Nucleated Red Blood Cells # Platelet Estimate NORMAL Polychromasia 1+ Hypochromasia 2+ Poikilocytosis 1+ Anisocytosis 2+ Microcytosis 1+ Macrocytosis 1+ Spherocytes 1+ Lab Scanned Report BLOOD TRANSFUSION Medications Medication Current Medications IV Flush (NS 3 ml) 3 ml PER PROTOCOL IV ; Start 12/14/18 at 19:30 Aspirin (Aspirin) 81 mg DAILY PO Last administered on 12/18/18at 09:56; Admin Dose 81 MG; Start 12/15/18 at 09:00 Nitroglycerin (Nitroglycerin (Sl Tab) 0.4 Mg) 1 tab Q5M PRN SL .CHEST PAIN; Start 12/14/18 at 19:30 Acetaminophen (Tylenol Tab) 650 mg Q6H PRN PO .PAIN 1-3 OR TEMP; Start 12/14/18 at 19:30 Acetaminophen/ Hydrocodone Bitart ([place] (5/325)) 1 tab Q6H PRN PO .PAIN 4-6 Last administered on 12/18/18at 02:11; Admin Dose 1 TAB; Start 12/14/18 at 19:30 Morphine Sulfate (morphine) 2 mg Q4H PRN IV .PAIN 7-10 Last administered on 12/15/18at 23:18; Admin Dose 2 MG; Start 12/14/18 at 19:30 Atorvastatin Calcium (Lipitor) 80 mg HS PO Last administered on 12/17/18at 21:53; Admin Dose 80 MG; Start 12/14/18 at 21:00 Tamsulosin HCl (Flomax) 0.4 mg HS PO Last administered on 12/17/18 21:53; Admin Dose 0.4 MG; Start 12/15/18 at 21:00 Albuterol/ Ipratropium (Duoneb) 3 ml Q6HWA RESP THERAPY HHN Last administered on 12/18/18 13:49; Admin Dose 3 ML; Start 12/15/18 at 14:00 Albuterol/ Ipratropium (Duoneb) 3 ml Q2H RESP THERAPY PRN HHN Dyspnea; Start 12/15/18 at 11:00 Arformoterol Tartrate (Brovana (Neb)) 2 ml BID NEB Last administered on 12/18/18 09:04; Admin Dose 2 ML; Start 12/15/18 at 11:00 Pantoprazole (Protonix Tab) 40 mg BID@06,18 PO Last administered on 12/18/18 06:59; Admin Dose 40 MG; Start 12/15/18 at 18:00 Ferric Sodium Gluconate Complex 125 mg/Sodium Chloride 110 ml @ 110 mls/hr DAILY@1300 IVPB Last administered on 12/18/18 13:21; Admin Dose 110 MLS/HR; Start 12/16/18 at 13:00; Stop 12/20/18 at 13:59 Epoetin David-epbx (RETACRIT(esrd)) 10,000 unit MoWeFr@1700 SC Last administered on 12/17/18 17:43; Admin Dose 10,000 UNIT; Start 12/17/18 at 17:00 Finasteride (Proscar) 5 mg DAILY PO Last administered on 12/18/18 09:56; Admin Dose 5 MG; Start 12/16/18 at 09:00 Hydralazine HCl (Apresoline) 10 mg Q4 PRN IV SBP>160 Last administered on 12/17/18 21:54; Admin Dose 10 MG; Start 12/17/18 at 21:30 Lorazepam (Ativan) 0.5 mg Q6H PRN PO ANXIETY Last administered on 12/18/18 16:05; Admin Dose 0.5 MG; Start 12/18/18 at 10:00 MEENA NASH MD December 18, 2018 18:07
[2018-12-18] MEDS: ATORVASTATIN 80 MG TAB PO SCH (20:24)
[2018-12-18] MEDS: TAMSULOSIN (SR) 0.4 MG CAP PO SCH (20:24)
[2018-12-18] MEDS: hydrALAzine 20 MG INJ IV PRN (21:51)
[2018-12-19] VITALS (12 sets, daily range): BP systolic 120–192; BP diastolic 9–94; PULSE 76–116; RESP 17–22
[2018-12-19] MEDS: morphine 2 MG INJ IV PRN (00:14)
[2018-12-19] MEDS: PANTOPRAZOLE (EC) 40 MG TAB PO SCH ×2 (06:37→17:25)
[2018-12-19] MEDS: ALBUTEROL/IPRATROPIUM (NEB) 3 ML AMP HHN SCH ×3 (08:00→20:46)
[2018-12-19] MEDS: ARFORMOTEROL TARTRATE 15MCG/2 ML AMP NEB SCH ×2 (09:00→21:00)
[2018-12-19] MEDS: ASPIRIN 81 MG TAB PO SCH (09:25)
[2018-12-19] MEDS: FINASTERIDE 5 MG TAB PO SCH (09:25)
--- NOTE | 2018-12-19 09:41 | CONS ---
Assessment/Plan Assessment/Plan Hospital Course (Demo Recall) 1. Acute renal failure superimposed on chronic kidney disease. His renal function is better today . If his renal function continues to improve then he would not need dialysis now . 2. Anemia of chronic kidney disease and blood loss from gross hematuria. His hemoglobin is higher and stable . 3, respiratory failure due to CHF and COPD. He is improving each day . Will continue off diuretics for now. 4. Hypertension. His blood pressure is high. I am going to add clonidine and Terrazosin 5. Hypernatremia Consultation Date/Type/Reason Admit Date/Time Dec 14, 2018 at 19:05 Initial Consult Date 12/16/18 Type of Consult Nephrology Requesting Provider: MEENA NASH MD Date/Time of Note DATE: 12/19/18 TIME: 09:39 24 HR Interval Summary Free Text/Dictation He is awake and alert today. He is feeling better. His family is in the room with him in a say that he is doing better. Constitutional: no complaints, improved Exam/Review of Systems Exam Vitals Vital Signs Date Temp Pulse Resp B/P (MAP) Pulse Ox O2 O2 Flow FiO2 Time Delivery Rate 12/19/18 77 08:20 12/19/18 98.2 20 169/77 96 Nasal 04:00 (107) Cannula 12/19/18 2.0 00:59 12/18/18 21 13:50 Intake and Output 12/18/18 12/18/18 12/19/18 1515:00 23:00 07:00 IntakeIntake Total 360 ml 720 ml OutputOutput Total 300 ml 53020 ml 1500 ml BalanceBalance 60 ml -93296 ml -1500 ml Exam His right leg he has severe lymphedema. The left leg there is trace pretibial edema. Constitutional: alert, oriented, frail Respiratory: clear to auscultation, normal air movement Cardiovascular: regular rate and rhythm Gastrointestinal: soft, non-tender Results Result Diagram: 12/19/18 0544 12/19/18 0544 Results 24hrs Laboratory Tests Test 12/19/18 05:44 White Blood Count 14.4 H Red Blood Count 2.91 L Hemoglobin 8.3 L Hematocrit 26.0 L Mean Corpuscular Volume 89.3 Mean Corpuscular Hemoglobin 28.5 L Mean Corpuscular Hemoglobin Concent 31.9 L Red Cell Distribution Width 16.6 H Platelet Count 163 Mean Platelet Volume 12.2 H Immature Granulocytes % 9.800 H Neutrophils % 79.8 H Segmented Neutrophils % (Manual) 81 H Band Neutrophils % (Manual) 1 Lymphocytes % 4.5 L Lymphocytes % (Manual) 14 L Monocytes % 5.4 Monocytes % (Manual) 2 Eosinophils % 0.4 Basophils % 0.1 Basophils % (Manual) 1 Metamyelocytes % (manual) 1 H Nucleated Red Blood Cells % 1 H Immature Granulocytes # 1.400 H Neutrophils # 11.5 H Neutrophils # (Manual) 11.7 H Band Neutrophils # 0.1 Lymphocytes (Manual) 2.0 Lymphocytes # 0.6 L Monocytes # 0.8 Monocytes # (Manual) 0.2 L Eosinophils # 0.1 Basophils # 0.0 Basophils # (Manual) 0.1 H Metamyelocytes # 0.1 H Nucleated Red Blood Cells # 0.1 H Platelet Estimate NORMAL Polychromasia 1+ Anisocytosis 1+ Microcytosis 1+ Spherocytes 1+ Sodium Level 147 H Potassium Level 4.4 Chloride Level 115 H Carbon Dioxide Level 23 Anion Gap 9 Blood Urea Nitrogen 85 H Creatinine 2.02 H Est Glomerular Filtrat Rate mL/min Glucose Level 127 Calcium Level 9.6 Phosphorus Level 4.3 Magnesium Level 1.9 Medications Medication Current Medications IV Flush (NS 3 ml) 3 ml PER PROTOCOL IV ; Start 12/14/18 at 19:30 Aspirin (Aspirin) 81 mg DAILY PO Last administered on 12/19/18 09:25; Admin Dose 81 MG; Start 12/15/18 at 09:00 Nitroglycerin (Nitroglycerin (Sl Tab) 0.4 Mg) 1 tab Q5M PRN SL .CHEST PAIN; Start 12/14/18 at 19:30 Acetaminophen (Tylenol Tab) 650 mg Q6H PRN PO .PAIN 1-3 OR TEMP; Start 12/14/18 at 19:30 Acetaminophen/ Hydrocodone Bitart ([place] (5/325)) 1 tab Q6H PRN PO .PAIN 4-6 Last administered on 12/18/18at 02:11; Admin Dose 1 TAB; Start 12/14/18 at 19:30 Morphine Sulfate (morphine) 2 mg Q4H PRN IV .PAIN 7-10 Last administered on 12/19/18at 00:14; Admin Dose 2 MG; Start 12/14/18 at 19:30 Atorvastatin Calcium (Lipitor) 80 mg HS PO Last administered on 12/18/18 20:24; Admin Dose 80 MG; Start 12/14/18 at 21:00 Albuterol/ Ipratropium (Duoneb) 3 ml Q6HWA RESP THERAPY HHN Last administered on 12/18/18 20:25; Admin Dose 3 ML; Start 12/15/18 at 14:00 Albuterol/ Ipratropium (Duoneb) 3 ml Q2H RESP THERAPY PRN HHN Dyspnea; Start 12/15/18 at 11:00 Arformoterol Tartrate (Brovana (Neb)) 2 ml BID NEB Last administered on 12/18/18 20:25; Admin Dose 2 ML; Start 12/15/18 at 11:00 Pantoprazole (Protonix Tab) 40 mg BID@06,18 PO Last administered on 12/19/18 06:37; Admin Dose 40 MG; Start 12/15/18 at 18:00 Ferric Sodium Gluconate Complex 125 mg/Sodium Chloride 110 ml @ 110 mls/hr DAILY@1300 IVPB Last administered on 12/18/18 13:21; Admin Dose 110 MLS/HR; Start 12/16/18 at 13:00; Stop 12/20/18 at 13:59 Epoetin David-epbx (RETACRIT(esrd)) 10,000 unit MoWeFr@1700 SC Last administered on 12/17/18 17:43; Admin Dose 10,000 UNIT; Start 12/17/18 at 17:00 Finasteride (Proscar) 5 mg DAILY PO Last administered on 12/19/18 09:25; Admin Dose 5 MG; Start 12/16/18 at 09:00 Hydralazine HCl (Apresoline) 10 mg Q4 PRN IV SBP>160 Last administered on 12/18/18 21:51; Admin Dose 10 MG; Start 12/17/18 at 21:30 Lorazepam (Ativan) 0.5 mg Q6H PRN PO ANXIETY Last administered on 12/18/18 23:39; Admin Dose 0.5 MG; Start 12/18/18 at 10:00 Clonidine (Catapres) 0.1 mg Q6H PRN PO SBP GREATER THAN 160; Start 12/19/18 at 09:30 Terazosin HCl (Hytrin) 5 mg HS PO ; Start 12/19/18 at 21:00; Status UNV MEENA NASH MD December 19, 2018 09:41
--- NOTE | 2018-12-19 09:50 | CONS ---
Assessment/Plan Assessment/Plan Assessment/Plan (Daily) Assessment and recommendations; 1. patient admitted for acute exacerbation with marked overall interval improvement. 2. Other comorbidities include history of anemia, chronic renal insufficiency, thrombocytopenia, prior CABG, hypertension and BPH. Continue current supportive care. Consider discharge. Consultation Date/Type/Reason Admit Date/Time Dec 14, 2018 at 19:05 Initial Consult Date 12/16/18 Type of Consult Pulmonary Patient is a pleasant 88-year-old male who was admitted to the hospital with complaints of shortness of breath going on for the past 2 days prior to admission. Patient denies having any chest pain. Upon evaluation further work- up was done including a chest x-ray which is showing pulmonary edema with elevation in troponin as well as significant elevation in BNP level. Patient has been started on diuretic regimen. Coronary angiography was discussed with the patient by the digital assistant however because of history of chronic renal insufficiency the family declined owing to risk of going on hemodialysis due to contrast injury. Patient has improved since admission and denies any further s hortness of breath. Denies any coughing, fever, chest pain, angina. Any wheezing. By the time I saw him in the room patient appeared very comfortable and did not appear to be in any distress whatsoever. Past medical history; 1. Chronic renal insufficiency 2. History of prior CABG 3. Hypertension 4. COPD 5. Anemia 6. BPH 7. CHF Medications; reviewed Allergies; none Social history; patient does have a history of smoking. Family history; noncontributory. Patient does have a supportive family. 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 Review of systems; denies any headache, visual changes, sinus symptoms. Shortness of breath has improved. Denies any chest pain, angina any wheezing, sputum production or hemoptysis. Denies any fever or chills. Denies any abdominal pain, nausea vomiting. Any melena or hematochezia. Does complain of chronic frequency and urgency of urination. Denies any orthopnea. Any weight loss. General exam; elderly male, laying comfortably in bed. Awake and alert. Currently in no distress. Requesting Provider: MEENA NASH MD Date/Time of Note DATE: 12/19/18 TIME: 09:48 24 HR Interval Summary Free Text/Dictation Patient's condition is stable. Remains awake and alert. Has remained hemodynamically stable. General exam; elderly male, currently no distress. Exam/Review of Systems Exam Vitals Vital Signs Date Temp Pulse Resp B/P (MAP) Pulse Ox O2 O2 Flow FiO2 Time Delivery Rate 12/19/18 77 08:20 12/19/18 98.2 20 169/77 96 Nasal 04:00 (107) Cannula 12/19/18 2.0 00:59 12/18/18 21 13:50 Intake and Output 12/18/18 12/18/18 12/19/18 1515:00 23:00 07:00 IntakeIntake Total 360 ml 720 ml OutputOutput Total 300 ml 62692 ml 1500 ml BalanceBalance 60 ml -68433 ml -1500 ml Exam H EENT exam; supple neck, no JVD. No lymphadenopathy. Midline trachea. No thyromegaly. Chest exam; diminished but clear breath sounds. S1-S2 audible, no murmurs. Regular rhythm. There is a well-healed sternal scar. Abdomen exam; soft, no organomegaly. Bowel sounds audible. Extremity exam; no peripheral edema clubbing. SILK WEAVER exam; no focal deficit. Results Result Diagram: 12/19/18 0544 12/19/18 0544 Results 24hrs Laboratory Tests Test 12/19/18 05:44 White Blood Count 14.4 H Red Blood Count 2.91 L Hemoglobin 8.3 L Hematocrit 26.0 L Mean Corpuscular Volume 89.3 Mean Corpuscular Hemoglobin 28.5 L Mean Corpuscular Hemoglobin Concent 31.9 L Red Cell Distribution Width 16.6 H Platelet Count 163 Mean Platelet Volume 12.2 H Immature Granulocytes % 9.800 H Neutrophils % 79.8 H Segmented Neutrophils % (Manual) 81 H Band Neutrophils % (Manual) 1 Lymphocytes % 4.5 L Lymphocytes % (Manual) 14 L Monocytes % 5.4 Monocytes % (Manual) 2 Eosinophils % 0.4 Basophils % 0.1 Basophils % (Manual) 1 Metamyelocytes % (manual) 1 H Nucleated Red Blood Cells % 1 H Immature Granulocytes # 1.400 H Neutrophils # 11.5 H Neutrophils # (Manual) 11.7 H Band Neutrophils # 0.1 Lymphocytes (Manual) 2.0 Lymphocytes # 0.6 L Monocytes # 0.8 Monocytes # (Manual) 0.2 L Eosinophils # 0.1 Basophils # 0.0 Basophils # (Manual) 0.1 H Metamyelocytes # 0.1 H Nucleated Red Blood Cells # 0.1 H Platelet Estimate NORMAL Polychromasia 1+ Anisocytosis 1+ Microcytosis 1+ Spherocytes 1+ Sodium Level 147 H Potassium Level 4.4 Chloride Level 115 H Carbon Dioxide Level 23 Anion Gap 9 Blood Urea Nitrogen 85 H Creatinine 2.02 H Est Glomerular Filtrat Rate mL/min Glucose Level 127 Calcium Level 9.6 Phosphorus Level 4.3 Magnesium Level 1.9 Medications Medication Current Medications IV Flush (NS 3 ml) 3 ml PER PROTOCOL IV ; Start 12/14/18 at 19:30 Aspirin (Aspirin) 81 mg DAILY PO Last administered on 12/19/18 09:25; Admin Dose 81 MG; Start 12/15/18 at 09:00 Nitroglycerin (Nitroglycerin (Sl Tab) 0.4 Mg) 1 tab Q5M PRN SL .CHEST PAIN; Start 12/14/18 at 19:30 Acetaminophen (Tylenol Tab) 650 mg Q6H PRN PO .PAIN 1-3 OR TEMP; Start 12/14/18 at 19:30 Acetaminophen/ Hydrocodone Bitart ([place] (5/325)) 1 tab Q6H PRN PO .PAIN 4-6 Last administered on 12/18/18 02:11; Admin Dose 1 TAB; Start 12/14/18 at 19:30 Morphine Sulfate (morphine) 2 mg Q4H PRN IV .PAIN 7-10 Last administered on 12/19/18 00:14; Admin Dose 2 MG; Start 12/14/18 at 19:30 Atorvastatin Calcium (Lipitor) 80 mg HS PO Last administered on 12/18/18 20:24; Admin Dose 80 MG; Start 12/14/18 at 21:00 Albuterol/ Ipratropium (Duoneb) 3 ml Q6HWA RESP THERAPY HHN Last administered on 12/18/18 20:25; Admin Dose 3 ML; Start 12/15/18 at 14:00 Albuterol/ Ipratropium (Duoneb) 3 ml Q2H RESP THERAPY PRN HHN Dyspnea; Start 12/15/18 at 11:00 Arformoterol Tartrate (Brovana (Neb)) 2 ml BID NEB Last administered on 12/18/18 20:25; Admin Dose 2 ML; Start 12/15/18 at 11:00 Pantoprazole (Protonix Tab) 40 mg BID@06,18 PO Last administered on 12/19/18 06:37; Admin Dose 40 MG; Start 12/15/18 at 18:00 Ferric Sodium Gluconate Complex 125 mg/Sodium Chloride 110 ml @ 110 mls/hr DAILY@1300 IVPB Last administered on 12/18/18 13:21; Admin Dose 110 MLS/HR; Start 12/16/18 at 13:00; Stop 12/20/18 at 13:59 Epoetin David-epbx (RETACRIT(esrd)) 10,000 unit MoWeFr@1700 SC Last administered on 12/17/18at 17:43; Admin Dose 10,000 UNIT; Start 12/17/18 at 17:00 Finasteride (Proscar) 5 mg DAILY PO Last administered on 12/19/18 09:25; Admin Dose 5 MG; Start 12/16/18 at 09:00 Hydralazine HCl (Apresoline) 10 mg Q4 PRN IV SBP>160 Last administered on 12/18/18at 21:51; Admin Dose 10 MG; Start 12/17/18 at 21:30 Lorazepam (Ativan) 0.5 mg Q6H PRN PO ANXIETY Last administered on 12/18/18at 23:39; Admin Dose 0.5 MG; Start 12/18/18 at 10:00 Clonidine (Catapres) 0.1 mg Q6H PRN PO SBP GREATER THAN 160; Start 12/19/18 at 09:30 Terazosin HCl (Hytrin) 5 mg HS PO ; Start 12/19/18 at 21:00 DEANA BRIAN December 19, 2018 09:50
--- NOTE | 2018-12-19 10:00 | PN ---
Date/Time of Note Date/Time of Note DATE: 12/19/18 TIME: 09:59 Assessment/Plan VTE Prophylaxis Risk score (from Ns)>0 risk: 10 SCD applied (from Ns): Yes Pharmacological prophylaxis: NA/contraindicated Pharm contraindication: bleeding Lines/Catheters IV [facility] [place] [facility] Urinary Cath still in place: Yes Reason Cath still needed: urinary retention, other (indicate) Assessment/Plan Hospital Course SUBJECTIVE: Denies any dyspnea today. Denies any chest pain. Remains on continuous bladder irrigation. OBJECTIVE: Physical Exam General: Obese, 88 year-old female lying in bed in mild to moderate respiratory distress. HEENT: Normocephalic, atraumatic. Eyes: Anicteric sclerae, conjunctivae clear. E NT: Nasal septum midline, oral mucosa moist. Neck supple. Respiratory: Bilaterally diminished breath sounds. No use of accessory muscles of respiration. Cardiovascular: S1, S2 heard. Regular rate and rhythm. Abdomen: Soft, nontender, and nondistended. Bowel sounds positive in all 4 quadrants. Genitourinary: Pleitez catheter in place. Extremities: No cyanosis, no clubbing. Bilateral lower extremity edema. Right lower extremity edema greater than the left. Neurologic: Cranial nerves II through XII grossly intact. The patient is awake, alert, and oriented. Labs & Vitals per chart ASSESSMENT & PLAN 88-year-old male with comorbidities including CAD status post CABG, dyslipidemia, obesity, chronic kidney disease, prostate hypertrophy, and hypertension, who came to the emergency room with chief complaint of dyspnea and wheezing that has been progressively getting worse. Patient was also noticed to have elevated troponins in the emergency room. The patient's chest x-ray was showing evidence of mild pulmonary vascular congestion with interstitial edema. The patient was admitted to inpatient setting for further treatment and evaluation. 1. Acute respiratory failure. -Hypoxic. -Most probably secondary to underlying reactive airway disease and CHF exacerba tion. -Continue inhaled bronchodilators ADIA and LABA. -S/P tapering dose of steroids. -Continue diuresis as renal function allows. 2. COPD exacerbation. -Remote history of smoking over years. -Continue inhaled bronchodilators ADIA and LABA. -S/P tapering dose of steroids. -Pulmonology following. 3. NSTEMI. -Known history of CAD, status post CABG. -Continue aspirin. -Continue high-dose statins. -Cardiology following. -Patient/family refusing left heart cath. 4. Acute on chronic kidney disease. -Nephrology following. 5. Benign prostatic hypertrophy. -Continue tamsulosin and finasteride. 6. Hypertension. -Blood pressure well controlled off antihypertensives. 7. Dyslipidemia. -Continue statins. 8. Hematuria from traumatic pulling of Pleitez catheter by the patient. -Being followed by Urology. -On CBI. 9. Normocytic anemia -Etiology could be multifactorial including the acute blood loss from traumatic pulling of the Pleitez. -Transfuse blood products as indicated. 10. Chronic right lower extremity lymphedema. -Venous Doppler negative for any DVT. 11. CHF exacerbation. -Diastolic dysfunction. -Continue diuresis as renal function allows. 12. Pulmonary hypertension. -PA pressure of 60 mm Hg. -Continue supplemental O2. 13. Fluids, electrolytes, and nutrition. -Renal diet. 14. DVT prophylaxis. -B/L SCDs. 15. Plan. -Continue inhaled bronchodilators. -Continue inpatient monitoring. -Await clinical improvement. Plan of care was explained to the patient's daughter, who was at the bedside. The patient was seen in collaboration with . Result Diagram: 12/19/18 0544 12/19/18 0544 Results 24hrs Laboratory Tests Test 12/19/18 05:44 White Blood Count 14.4 H Red Blood Count 2.91 L Hemoglobin 8.3 L Hematocrit 26.0 L Mean Corpuscular Volume 89.3 Mean Corpuscular Hemoglobin 28.5 L Mean Corpuscular Hemoglobin Concent 31.9 L Red Cell Distribution Width 16.6 H Platelet Count 163 Mean Platelet Volume 12.2 H Immature Granulocytes % 9.800 H Neutrophils % 79.8 H Segmented Neutrophils % (Manual) 81 H Band Neutrophils % (Manual) 1 Lymphocytes % 4.5 L Lymphocytes % (Manual) 14 L Monocytes % 5.4 Monocytes % (Manual) 2 Eosinophils % 0.4 Basophils % 0.1 Basophils % (Manual) 1 Metamyelocytes % (manual) 1 H Nucleated Red Blood Cells % 1 H Immature Granulocytes # 1.400 H Neutrophils # 11.5 H Neutrophils # (Manual) 11.7 H Band Neutrophils # 0.1 Lymphocytes (Manual) 2.0 Lymphocytes # 0.6 L Monocytes # 0.8 Monocytes # (Manual) 0.2 L Eosinophils # 0.1 Basophils # 0.0 Basophils # (Manual) 0.1 H Metamyelocytes # 0.1 H Nucleated Red Blood Cells # 0.1 H Platelet Estimate NORMAL Polychromasia 1+ Anisocytosis 1+ Microcytosis 1+ Spherocytes 1+ Sodium Level 147 H Potassium Level 4.4 Chloride Level 115 H Carbon Dioxide Level 23 Anion Gap 9 Blood Urea Nitrogen 85 H Creatinine 2.02 H Est Glomerular Filtrat Rate mL/min Glucose Level 127 Calcium Level 9.6 Phosphorus Level 4.3 Magnesium Level 1.9 Exam/Review of Systems Exam Vitals Vital Signs Date Temp Pulse Resp B/P (MAP) Pulse Ox O2 O2 Flow FiO2 Time Delivery Rate 12/19/18 77 08:20 12/19/18 98.2 20 169/77 96 Nasal 04:00 (107) Cannula 12/19/18 2.0 00:59 12/18/18 21 13:50 Intake and Output 12/18/18 12/18/18 12/19/18 1515:00 23:00 07:00 IntakeIntake Total 360 ml 720 ml OutputOutput Total 300 ml 24575 ml 1500 ml BalanceBalance 60 ml -94558 ml -1500 ml Results Results 24hrs Laboratory Tests Test 12/19/18 05:44 White Blood Count 14.4 H Red Blood Count 2.91 L Hemoglobin 8.3 L Hematocrit 26.0 L Mean Corpuscular Volume 89.3 Mean Corpuscular Hemoglobin 28.5 L Mean Corpuscular Hemoglobin Concent 31.9 L Red Cell Distribution Width 16.6 H Platelet Count 163 Mean Platelet Volume 12.2 H Immature Granulocytes % 9.800 H Neutrophils % 79.8 H Segmented Neutrophils % (Manual) 81 H Band Neutrophils % (Manual) 1 Lymphocytes % 4.5 L Lymphocytes % (Manual) 14 L Monocytes % 5.4 Monocytes % (Manual) 2 Eosinophils % 0.4 Basophils % 0.1 Basophils % (Manual) 1 Metamyelocytes % (manual) 1 H Nucleated Red Blood Cells % 1 H Immature Granulocytes # 1.400 H Neutrophils # 11.5 H Neutrophils # (Manual) 11.7 H Band Neutrophils # 0.1 Lymphocytes (Manual) 2.0 Lymphocytes # 0.6 L Monocytes # 0.8 Monocytes # (Manual) 0.2 L Eosinophils # 0.1 Basophils # 0.0 Basophils # (Manual) 0.1 H Metamyelocytes # 0.1 H Nucleated Red Blood Cells # 0.1 H Platelet Estimate NORMAL Polychromasia 1+ Anisocytosis 1+ Microcytosis 1+ Spherocytes 1+ Sodium Level 147 H Potassium Level 4.4 Chloride Level 115 H Carbon Dioxide Level 23 Anion Gap 9 Blood Urea Nitrogen 85 H Creatinine 2.02 H Est Glomerular Filtrat Rate mL/min Glucose Level 127 Calcium Level 9.6 Phosphorus Level 4.3 Magnesium Level 1.9 Medications Medication Current Medications IV Flush (NS 3 ml) 3 ml PER PROTOCOL IV ; Start 12/14/18 at 19:30 Aspirin (Aspirin) 81 mg DAILY PO Last administered on 12/19/18 09:25; Admin Dose 81 MG; Start 12/15/18 at 09:00 Nitroglycerin (Nitroglycerin (Sl Tab) 0.4 Mg) 1 tab Q5M PRN SL .CHEST PAIN; St art 12/14/18 at 19:30 Acetaminophen (Tylenol Tab) 650 mg Q6H PRN PO .PAIN 1-3 OR TEMP; Start 12/14/18 at 19:30 Acetaminophen/ Hydrocodone Bitart ([place] (5/325)) 1 tab Q6H PRN PO .PAIN 4-6 Last administered on 12/18/18at 02:11; Admin Dose 1 TAB; Start 12/14/18 at 19:30 Morphine Sulfate (morphine) 2 mg Q4H PRN IV .PAIN 7-10 Last administered on 12/19/18at 00:14; Admin Dose 2 MG; Start 12/14/18 at 19:30 Atorvastatin Calcium (Lipitor) 80 mg HS PO Last administered on 12/18/18 20:24; Admin Dose 80 MG; Start 12/14/18 at 21:00 Albuterol/ Ipratropium (Duoneb) 3 ml Q6HWA RESP THERAPY HHN Last administered on 12/18/18 20:25; Admin Dose 3 ML; Start 12/15/18 at 14:00 Albuterol/ Ipratropium (Duoneb) 3 ml Q2H RESP THERAPY PRN HHN Dyspnea; Start 12/15/18 at 11:00 Arformoterol Tartrate (Brovana (Neb)) 2 ml BID NEB Last administered on 12/18/18 20:25; Admin Dose 2 ML; Start 12/15/18 at 11:00 Pantoprazole (Protonix Tab) 40 mg BID@06,18 PO Last administered on 12/19/18 06:37; Admin Dose 40 MG; Start 12/15/18 at 18:00 Ferric Sodium Gluconate Complex 125 mg/Sodium Chloride 110 ml @ 110 mls/hr DAILY@1300 IVPB Last administered on 12/18/18at 13:21; Admin Dose 110 MLS/HR; Start 12/16/18 at 13:00; Stop 12/20/18 at 13:59 Epoetin David-epbx (RETACRIT(esrd)) 10,000 unit MoWeFr@1700 SC Last administered on 12/17/18at 17:43; Admin Dose 10,000 UNIT; Start 12/17/18 at 17:00 Finasteride (Proscar) 5 mg DAILY PO Last administered on 12/19/18at 09:25; Admin Dose 5 MG; Start 12/16/18 at 09:00 Hydralazine HCl (Apresoline) 10 mg Q4 PRN IV SBP>160 Last administered on 12/18/18at 21:51; Admin Dose 10 MG; Start 12/17/18 at 21:30 Lorazepam (Ativan) 0.5 mg Q6H PRN PO ANXIETY Last administered on 12/18/18at 23:39; Admin Dose 0.5 MG; Start 12/18/18 at 10:00 Clonidine (Catapres) 0.1 mg Q6H PRN PO SBP GREATER THAN 160; Start 12/19/18 at 09:30 Terazosin HCl (Hytrin) 5 mg HS PO ; Start 12/19/18 at 21:00 GAMA MUNROE NP December 19, 2018 10:00
[2018-12-19] MEDS: SOD FERRIC GLUC COMPLX 125 MG in SOD CHLORIDE 0.9% 100 ML IVPB SCH (13:30)
--- NOTE | 2018-12-19 15:29 | CONS ---
Consult Date/Type/Reason Admit Date/Time Dec 14, 2018 at 19:05 Initial Consult Date 12/16/18 Type of Consultation: cv Requesting Provider: MEENA NASH MD Date/Time of Note DATE: 12/19/18 TIME: 15:27 Subjective cardiology follow up note S; D/W staff and son and tele was reviewed. pt remains in NSR Discussed with son and daughter no chest pain or pressure or palpitations less sob today. he feels better now and is no longer confused and agitated per family report O: General: Elderly gentleman appears to be in no acute distress HEENT: NC/AT. pupils are equal. round. NECK: . no stridor. CV: RRR. systolic murmur; no gallop or rubs. PULM: + mild rhonchi.+ wheezing GI: SOFT, NT, ND, no rebound or guarding Extremity: Right lower extremity with lymphedema. Trace left lower extremity edema neuro: awake and alert, Psych:calm now rectal: deferred : s/p herrera in place EKG was personally within normal sinus rhythm with right bundle branch block. Septal infarct age undetermined Echocardiogram was personally reviewed which shows: There is moderate enlargement of left atrium. Normal left ventricular systolic function. Normal left ventricular cavity size. Mild concentric left ventricular hypertrophy. Ejection fraction is visually estimated at 55 %. Abnormal Diastolic Function. Normal appearance of the mitral valve. Mild mitral annular calcification. Trace mitral regurgitation. No significant aortic stenosis or insufficiency. Aortic cusps appear mildly calcified. Normal appearance of the tricuspid valve. Estimated peak PA systolic pressure 60 mmHg. There is mild to moderate tricuspid regurgitation. Dilated IVC without respiratory collapse consistent with elevated right atrial pressure. Chest x-ray done 12/06/2018 shows: Mild pulmonary vascular congestion with interstitial edema. Strandy consolidation in both midlung zones laterally can be seen with alveolar edema or infection Objective Vitals Vital Signs Date Temp Pulse Resp B/P (MAP) Pulse Ox O2 O2 Flow FiO2 Time Delivery Rate 12/19/18 76 12:12 12/19/18 98.4 18 169/75 97 Nasal 2.0 12:11 (106) Cannula 12/18/18 21 13:50 Intake and Output 12/18/18 12/18/18 12/19/18 1515:00 23:00 07:00 IntakeIntake Total 360 ml 720 ml OutputOutput Total 300 ml 21890 ml 1500 ml BalanceBalance 60 ml -12640 ml -1500 ml Results/Medications Result Diagram: 12/19/18 0544 12/19/18 0544 Results 24 hrs Laboratory Tests Test 12/19/18 05:44 White Blood Count 14.4 H Red Blood Count 2.91 L Hemoglobin 8.3 L Hematocrit 26.0 L Mean Corpuscular Volume 89.3 Mean Corpuscular Hemoglobin 28.5 L Mean Corpuscular Hemoglobin Concent 31.9 L Red Cell Distribution Width 16.6 H Platelet Count 163 Mean Platelet Volume 12.2 H Immature Granulocytes % 9.800 H Neutrophils % 79.8 H Segmented Neutrophils % (Manual) 81 H Band Neutrophils % (Manual) 1 Lymphocytes % 4.5 L Lymphocytes % (Manual) 14 L Monocytes % 5.4 Monocytes % (Manual) 2 Eosinophils % 0.4 Basophils % 0.1 Basophils % (Manual) 1 Metamyelocytes % (manual) 1 H Nucleated Red Blood Cells % 1 H Immature Granulocytes # 1.400 H Neutrophils # 11.5 H Neutrophils # (Manual) 11.7 H Band Neutrophils # 0.1 Lymphocytes (Manual) 2.0 Lymphocytes # 0.6 L Monocytes # 0.8 Monocytes # (Manual) 0.2 L Eosinophils # 0.1 Basophils # 0.0 Basophils # (Manual) 0.1 H Metamyelocytes # 0.1 H Nucleated Red Blood Cells # 0.1 H Platelet Estimate NORMAL Polychromasia 1+ Anisocytosis 1+ Microcytosis 1+ Spherocytes 1+ Sodium Level 147 H Potassium Level 4.4 Chloride Level 115 H Carbon Dioxide Level 23 Anion Gap 9 Blood Urea Nitrogen 85 H Creatinine 2.02 H Est Glomerular Filtrat Rate mL/min Glucose Level 127 Calcium Level 9.6 Phosphorus Level 4.3 Magnesium Level 1.9 Home Meds Reported Medications Fenofibrate Nanocrystallized* (Tricor*) 145 Mg Tablet 09/19/10 Azithromycin* (Zithromax*) 250 Mg Tablet 09/19/10 Rosuvastatin Calcium* (Crestor*) 20 Mg Tablet 09/19/10 Dicyclomine Hcl* (Bentyl*) 20 Mg Tablet 09/19/10 Clopidogrel Bisulfate (Plavix) 75 Mg Tablet 09/19/10 Rabeprazole Sodium* (Aciphex*) 20 Mg Tablet. 09/19/10 Terazosin Hcl* (Terazosin Hcl*) 5 Mg Capsule 09/19/10 Aspirin (Adult Low Dose Aspirin) 81 Mg Tablet. 09/19/10 Furosemide (Lasix) 40 Mg Tab 09/19/10 Medications Current Medications IV Flush (NS 3 ml) 3 ml PER PROTOCOL IV ; Start 12/14/18 at 19:30 Aspirin (Aspirin) 81 mg DAILY PO Last administered on 12/19/18 09:25; Admin Do se 81 MG; Start 12/15/18 at 09:00 Nitroglycerin (Nitroglycerin (Sl Tab) 0.4 Mg) 1 tab Q5M PRN SL .CHEST PAIN; Start 12/14/18 at 19:30 Acetaminophen (Tylenol Tab) 650 mg Q6H PRN PO .PAIN 1-3 OR TEMP; Start 12/14/18 at 19:30 Acetaminophen/ Hydrocodone Bitart ([place] (5/325)) 1 tab Q6H PRN PO .PAIN 4-6 Last administered on 12/18/18 02:11; Admin Dose 1 TAB; Start 12/14/18 at 19:30 Morphine Sulfate (morphine) 2 mg Q4H PRN IV .PAIN 7-10 Last administered on 12/19/18 00:14; Admin Dose 2 MG; Start 12/14/18 at 19:30 Atorvastatin Calcium (Lipitor) 80 mg HS PO Last administered on 12/18/18 20:24; Admin Dose 80 MG; Start 12/14/18 at 21:00 Albuterol/ Ipratropium (Duoneb) 3 ml Q6HWA RESP THERAPY HHN Last administered on 12/19/18 14:16; Admin Dose 3 ML; Start 12/15/18 at 14:00 Albuterol/ Ipratropium (Duoneb) 3 ml Q2H RESP THERAPY PRN HHN Dyspnea; Start 12/15/18 at 11:00 Arformoterol Tartrate (Brovana (Neb)) 2 ml BID NEB Last administered on 12/18/18 20:25; Admin Dose 2 ML; Start 12/15/18 at 11:00 Pantoprazole (Protonix Tab) 40 mg BID@,18 PO Last administered on 12/19/18 06:37; Admin Dose 40 MG; Start 12/15/18 at 18:00 Ferric Sodium Gluconate Complex 125 mg/Sodium Chloride 110 ml @ 110 mls/hr DAILY@1300 IVPB Last administered on 12/19/18at 13:30; Admin Dose 110 MLS/HR; Start 12/16/18 at 13:00; Stop 12/20/18 at 13:59 Epoetin David-epbx (RETACRIT(esrd)) 10,000 unit MoWeFr@1700 SC Last administered on 12/17/18at 17:43; Admin Dose 10,000 UNIT; Start 12/17/18 at 17:00 Finasteride (Proscar) 5 mg DAILY PO Last administered on 12/19/18at 09:25; Admin Dose 5 MG; Start 12/16/18 at 09:00 Hydralazine HCl (Apresoline) 10 mg Q4 PRN IV SBP>160 Last administered on 12/18/18at 21:51; Admin Dose 10 MG; Start 12/17/18 at 21:30 Lorazepam (Ativan) 0.5 mg Q6H PRN PO ANXIETY Last administered on 12/18/18at 23:39; Admin Dose 0.5 MG; Start 12/18/18 at 10:00 Clonidine (Catapres) 0.1 mg Q6H PRN PO SBP GREATER THAN 160; Start 12/19/18 at 09:30 Terazosin HCl (Hytrin) 5 mg HS PO ; Start 12/19/18 at 21:00 Assessment/Plan Hospital Course (Demo Recall) 1. Abnormal troponin most likely secondary to below versus type II non-ST elevation myocardial infarction 2. Hypoxemic respiratory failure 3. COPD exacerbation, possible pneumonia 4. 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 Hypertension 6. Dyslipidemia 7 for history of coronary artery disease 8. History of coronary bypass graft 9. History of PCI 10. hematuria 11. Anemia 12. Renal failure probably chronic kidney disease Recommendations: Continue with medical therapy. Aspirin will be continued as long as okay with urology. Nebulizer treatment pulmonary care as per internal medicine. Echocardiogram showed preserved LV systolic function but Patient does have pulmonary hypertension Not on any KYLIE inhibitor or ARB due to his renal failure. f/u with renal consultation rec f/u urology rec s/p sharon now I will add Toprol to his regimen for better blood pressure control Thank you for his referral. We will continue to follow along with you as needed over the weekend PIPO GABRIEL MD [facility] PIPO GABRIEL MD December 19, 2018 15:29
--- NOTE | 2018-12-19 17:23 | CONS ---
Assessment/Plan Assessment/Plan Hospital Course (Demo Recall) 1. Acute renal failure superimposed on chronic kidney disease. His renal function is better today and continues to improve . 2. Anemia of chronic kidney disease and blood loss from gross hematuria. His hemoglobin is higher and stable . 3, respiratory failure due to CHF and COPD. He is improving each day . His chest x ray today shows pulmonary vascular congestion and interstitial edema . I am going to give him 40 mg of furosemide IV now . This will also help his BP . 4. Hypertension. His blood pressure is high. I am going to add clonidine and Terazosin 5. Hypernatremia Consultation Date/Type/Reason Admit Date/Time Dec 14, 2018 at 19:05 Initial Consult Date 12/16/18 Type of Consult Nephrology Requesting Provider: MEENA NASH MD Date/Time of Note DATE: 12/19/18 TIME: 17:13 24 HR Interval Summary Free Text/Dictation He is awake and alert . His family is in the room with him . His urine is less bloody . Constitutional: improved Exam/Review of Systems Exam Vitals Vital Signs Date Temp Pulse Resp B/P (MAP) Pulse Ox O2 O2 Flow FiO2 Time Delivery Rate 12/19/18 83 16:22 12/19/18 98.4 18 169/75 97 Nasal 2.0 12:11 (106) Cannula 12/18/18 21 13:50 Intake and Output 12/18/18 12/18/18 12/19/18 1515:00 23:00 07:00 IntakeIntake Total 360 ml 720 ml OutputOutput Total 300 ml 97422 ml 1500 ml BalanceBalance 60 ml -68495 ml -1500 ml Exam His R leg has severe lymphedema , L trace edema . Constitutional: alert, frail Respiratory: clear to auscultation, diminished breath sounds Cardiovascular: regular rate and rhythm, edema Extremities: edema Results Result Diagram: 12/19/18 0544 12/19/18 0544 Results 24hrs Laboratory Tests Test 12/19/18 05:44 White Blood Count 14.4 H Red Blood Count 2.91 L Hemoglobin 8.3 L Hematocrit 26.0 L Mean Corpuscular Volume 89.3 Mean Corpuscular Hemoglobin 28.5 L Mean Corpuscular Hemoglobin Concent 31.9 L Red Cell Distribution Width 16.6 H Platelet Count 163 Mean Platelet Volume 12.2 H Immature Granulocytes % 9.800 H Neutrophils % 79.8 H Segmented Neutrophils % (Manual) 81 H Band Neutrophils % (Manual) 1 Lymphocytes % 4.5 L Lymphocytes % (Manual) 14 L Monocytes % 5.4 Monocytes % (Manual) 2 Eosinophils % 0.4 Basophils % 0.1 Basophils % (Manual) 1 Metamyelocytes % (manual) 1 H Nucleated Red Blood Cells % 1 H Immature Granulocytes # 1.400 H Neutrophils # 11.5 H Neutrophils # (Manual) 11.7 H Band Neutrophils # 0.1 Lymphocytes (Manual) 2.0 Lymphocytes # 0.6 L Monocytes # 0.8 Monocytes # (Manual) 0.2 L Eosinophils # 0.1 Basophils # 0.0 Basophils # (Manual) 0.1 H Metamyelocytes # 0.1 H Nucleated Red Blood Cells # 0.1 H Platelet Estimate NORMAL Polychromasia 1+ Anisocytosis 1+ Microcytosis 1+ Spherocytes 1+ Sodium Level 147 H Potassium Level 4.4 Chloride Level 115 H Carbon Dioxide Level 23 Anion Gap 9 Blood Urea Nitrogen 85 H Creatinine 2.02 H Est Glomerular Filtrat Rate mL/min Glucose Level 127 Calcium Level 9.6 Phosphorus Level 4.3 Magnesium Level 1.9 Medications Medication Current Medications IV Flush (NS 3 ml) 3 ml PER PROTOCOL IV ; Start 12/14/18 at 19:30 Aspirin (Aspirin) 81 mg DAILY PO Last administered on 12/19/18at 09:25; Admin Dose 81 MG; Start 12/15/18 at 09:00 Nitroglycerin (Nitroglycerin (Sl Tab) 0.4 Mg) 1 tab Q5M PRN SL .CHEST PAIN; Start 12/14/18 at 19:30 Acetaminophen (Tylenol Tab) 650 mg Q6H PRN PO .PAIN 1-3 OR TEMP; Start 12/14/18 at 19:30 Acetaminophen/ Hydrocodone Bitart ([place] (5/325)) 1 tab Q6H PRN PO .PAIN 4-6 Last administered on 12/18/18at 02:11; Admin Dose 1 TAB; Start 12/14/18 at 19:30 Morphine Sulfate (morphine) 2 mg Q4H PRN IV .PAIN 7-10 Last administered on 12/19/18at 00:14; Admin Dose 2 MG; Start 12/14/18 at 19:30 Atorvastatin Calcium (Lipitor) 80 mg HS PO Last administered on 12/18/18 20:24; Admin Dose 80 MG; Start 12/14/18 at 21:00 Albuterol/ Ipratropium (Duoneb) 3 ml Q6HWA RESP THERAPY HHN Last administered on 12/19/18 14:16; Admin Dose 3 ML; Start 12/15/18 at 14:00 Albuterol/ Ipratropium (Duoneb) 3 ml Q2H RESP THERAPY PRN HHN Dyspnea; Start 12/15/18 at 11:00 Arformoterol Tartrate (Brovana (Neb)) 2 ml BID NEB Last administered on 12/18/18 20:25; Admin Dose 2 ML; Start 12/15/18 at 11:00 Pantoprazole (Protonix Tab) 40 mg BID@06,18 PO Last administered on 12/19/18 06:37; Admin Dose 40 MG; Start 12/15/18 at 18:00 Ferric Sodium Gluconate Complex 125 mg/Sodium Chloride 110 ml @ 110 mls/hr DAILY@1300 IVPB Last administered on 12/19/18 13:30; Admin Dose 110 MLS/HR; Start 12/16/18 at 13:00; Stop 12/20/18 at 13:59 Epoetin David-epbx (RETACRIT(esrd)) 10,000 unit MoWeFr@1700 SC Last administered on 12/17/18 17:43; Admin Dose 10,000 UNIT; Start 12/17/18 at 17:00 Finasteride (Proscar) 5 mg DAILY PO Last administered on 12/19/18 09:25; Admin Dose 5 MG; Start 12/16/18 at 09:00 Hydralazine HCl (Apresoline) 10 mg Q4 PRN IV SBP>160 Last administered on 12/18/18 21:51; Admin Dose 10 MG; Start 12/17/18 at 21:30 Lorazepam (Ativan) 0.5 mg Q6H PRN PO ANXIETY Last administered on 12/18/18 23:39; Admin Dose 0.5 MG; Start 12/18/18 at 10:00 Clonidine (Catapres) 0.1 mg Q6H PRN PO SBP GREATER THAN 160; Start 12/19/18 at 09:30 Terazosin HCl (Hytrin) 5 mg HS PO ; Start 12/19/18 at 21:00 Metoprolol Succinate (Toprol Xl) 25 mg BID PO ; Start 12/19/18 at 21:00 MEENA NASH MD December 19, 2018 17:23
[2018-12-19] MEDS: EPOETIN ALFA-EPBX (ESRD) 10,000 UNIT/ML VIAL SC SCH (17:26)
[2018-12-19] MEDS ORDERED: FUROSEMIDE 40 MG INJ IV ONE (17:30)
[2018-12-19] MEDS: ATORVASTATIN 80 MG TAB PO SCH (20:10)
[2018-12-19] MEDS: TERAZOSIN 5 MG CAP PO SCH (20:10)
[2018-12-19] MEDS: METOPROLOL (XL) 25 MG TAB PO SCH (20:11)
[2018-12-20] VITALS (11 sets, daily range): BP systolic 148–177; BP diastolic 67–95; PULSE 68–90; RESP 18–20
[2018-12-20] MEDS: morphine 2 MG INJ IV PRN ×2 (02:31→17:10)
[2018-12-20] MEDS: PANTOPRAZOLE (EC) 40 MG TAB PO SCH ×2 (05:29→18:00)
[2018-12-20] MEDS: FINASTERIDE 5 MG TAB PO SCH (08:07)
[2018-12-20] MEDS: ASPIRIN 81 MG TAB PO SCH (08:08)
[2018-12-20] MEDS: ACETAMINOPHEN 325 MG TAB PO PRN (08:08)
[2018-12-20] MEDS: METOPROLOL (XL) 25 MG TAB PO SCH ×2 (08:08→20:23)
--- NOTE | 2018-12-20 08:40 | CONS ---
DATE OF ADMISSION: 12/14/2018 DATE OF CONSULTATION: 12/20/2018 TYPE OF CONSULTATION: Urology, Dr. Dover. HISTORY OF PRESENT ILLNESS: From a urologic standpoint, the patient has been doing very well at [place]'s request, continuous bladder irrigation has been maintained. There has been no noted obstruction . There has been no noted gross hematuria. Yesterday the patient's hemoglobin was 8.3 and today his hemoglobin is 7.6 VITAL SIGNS: Blood pressure 160/72, heart rate 79, temperature 97.8. ABDOMEN: Soft, nontender, no palpable masses. Flank, no CVA tenderness, no masses. GENITALIA: Normal shaft of penis, normal scrotum, testicles and epididymis. Slow continuous bladder irrigation efflux is noted to be crystal clear. Creatinine 2.02. IMPRESSION: Traumatic removal of Pleitez catheter with secondary gross hematuria, no active bleeding o n Hytrin 5 mg p.o. at bedtime, Proscar 5 mg p.o. and daily aspirin. PLAN: The catheter was irrigated. Several small well-formed clots were noted. No active oozing or bleeding could be appreciated despite irrigation. There was no noted gross hematuria. The Pleitez cat heter remained clear. Thus, I discontinued the CBI. I suggest continuation of Pleitez to gravity hawa remy. Should resumption of gross hematuria be noted, may consider holding of aspirin if medical cond ition allows. Continue Pleitez catheter. All questions answered with daughter. Dictated By: GEOFFREY RUANO MD EGR/NTS Conf#: [id number] DID#: [id number] CC: LAUREN NELSON MD;*End*
[2018-12-20] MEDS: ALBUTEROL/IPRATROPIUM (NEB) 3 ML AMP HHN SCH ×3 (08:41→20:53)
[2018-12-20] MEDS: ARFORMOTEROL TARTRATE 15MCG/2 ML AMP NEB SCH ×2 (08:41→20:53)
--- NOTE | 2018-12-20 11:28 | CONS ---
Assessment/Plan Assessment/Plan Assessment/Plan (Daily) 1. Acute renal failure is stable with still evid vol overload, will give additional lasix 2. BP is still not controlled, will add adalat 3. Anemia is stable 4. Hypernatremia, will encourage po fluids Consultation Date/Type/Reason Admit Date/Time Dec 14, 2018 at 19:05 Initial Consult Date 12/16/18 Requesting Provider: MEENA NASH MD Date/Time of Note DATE: 12/20/18 TIME: 11:25 Detailed Summary Respiratory: No shortness of breath Cardiovascular: No chest pain Gastrointestinal: no complaints Genitourinary: other (herrera in place) Exam/Review of Systems Exam Vitals Vital Signs Date Temp Pulse Resp B/P (MAP) Pulse Ox O2 O2 Flow FiO2 Time Delivery Rate 12/20/18 98 20 97 Nasal 3.0 08:41 Cannula 12/20/18 97.4 177/95 08:24 (122) 12/18/18 21 13:50 Intake and Output 12/19/18 12/19/18 12/20/18 1515:00 23:00 07:00 IntakeIntake Total 310 ml 6400 ml 400 ml OutputOutput Total 1300 ml 2500 ml 750 ml BalanceBalance -990 ml 3900 ml -350 ml Neck: No jvd Respiratory: clear to auscultation Cardiovascular: regular rate and rhythm Gastrointestinal: soft Extremities: No edema (of legs but moderate sacral edema) Results Result Diagram: 12/20/18 0541 12/20/18 0541 Results 24hrs Laboratory Tests Test 12/20/18 05:41 White Blood Count 12.5 H Red Blood Count 2.66 L Hemoglobin 7.8 L Hematocrit 24.3 L Mean Corpuscular Volume 91.4 Mean Corpuscular Hemoglobin 29.3 Mean Corpuscular Hemoglobin Concent 32.1 Red Cell Distribution Width 16.5 H Platelet Count 150 Mean Platelet Volume 12.2 H Immature Granulocytes % 10.300 H Neutrophils % 75.6 Lymphocytes % 6.7 L Monocytes % 5.5 Eosinophils % 1.5 Basophils % 0.4 Nucleated Red Blood Cells % 0.2 H Immature Granulocytes # 1.280 H Neutrophils # 9.4 H Lymphocytes # 0.8 Monocytes # 0.7 Eosinophils # 0.2 Basophils # 0.1 Nucleated Red Blood Cells # 0.0 Sodium Level 146 H Potassium Level 3.9 Chloride Level 113 H Carbon Dioxide Level 26 Anion Gap 7 Blood Urea Nitrogen 70 H Creatinine 1.83 H Est Glomerular Filtrat Rate mL/min Glucose Level 114 Calcium Level 9.5 Phosphorus Level 4.0 Magnesium Level 1.8 Medications Medication Current Medications IV Flush (NS 3 ml) 3 ml PER PROTOCOL IV ; Start 12/14/18 at 19:30 Aspirin (Aspirin) 81 mg DAILY PO Last administered on 12/20/18 08:08; Admin Dose 81 MG; Start 12/15/18 at 09:00 Nitroglycerin (Nitroglycerin (Sl Tab) 0.4 Mg) 1 tab Q5M PRN SL .CHEST PAIN; Start 12/14/18 at 19:30 Acetaminophen (Tylenol Tab) 650 mg Q6H PRN PO .PAIN 1-3 OR TEMP Last administered on 12/20/18 08:08; Admin Dose 650 MG; Start 12/14/18 at 19:30 Acetaminophen/ Hydrocodone Bitart ([place] (5/325)) 1 tab Q6H PRN PO .PAIN 4-6 Last administered on 12/18/18 02:11; Admin Dose 1 TAB; Start 12/14/18 at 19:30 Morphine Sulfate (morphine) 2 mg Q4H PRN IV .PAIN 7-10 Last administered on 12/20/18 02:31; Admin Dose 2 MG; Start 12/14/18 at 19:30 Atorvastatin Calcium (Lipitor) 80 mg HS PO Last administered on 12/19/18 20:10; Admin Dose 80 MG; Start 12/14/18 at 21:00 Albuterol/ Ipratropium (Duoneb) 3 ml Q6HWA RESP THERAPY HHN Last administered on 12/20/18 08:41; Admin Dose 3 ML; Start 12/15/18 at 14:00 Albuterol/ Ipratropium (Duoneb) 3 ml Q2H RESP THERAPY PRN HHN Dyspnea; Start 12/15/18 at 11:00 Arformoterol Tartrate (Brovana (Neb)) 2 ml BID NEB Last administered on 08:41; Admin Dose 2 ML; Start 12/15/18 at 11:00 Pantoprazole (Protonix Tab) 40 mg BID@06,18 PO Last administered on 12/20/18 05:29; Admin Dose 40 MG; Start 12/15/18 at 18:00 Ferric Sodium Gluconate Complex 125 mg/Sodium Chloride 110 ml @ 110 mls/hr DAILY@1300 IVPB Last administered on 12/19/18 13:30; Admin Dose 110 MLS/HR; Start 12/16/18 at 13:00; Stop 12/20/18 at 13:59 Epoetin David-epbx (RETACRIT(esrd)) 10,000 unit MoWeFr@1700 SC Last administered on 12/19/18 17:26; Admin Dose 10,000 UNIT; Start 12/17/18 at 17:00 Finasteride (Proscar) 5 mg DAILY PO Last administered on 12/20/18 08:07; Admin Dose 5 MG; Start 12/16/18 at 09:00 Hydralazine HCl (Apresoline) 10 mg Q4 PRN IV SBP>160 Last administered on 12/18/18 21:51; Admin Dose 10 MG; Start 12/17/18 at 21:30 Lorazepam (Ativan) 0.5 mg Q6H PRN PO ANXIETY Last administered on 12/18/18 23:39; Admin Dose 0.5 MG; Start 12/18/18 at 10:00 Clonidine (Catapres) 0.1 mg Q6H PRN PO SBP GREATER THAN 160; Start 12/19/18 at 09:30 Terazosin HCl (Hytrin) 5 mg HS PO Last administered on 12/19/18 20:10; Admin Dose 5 MG; Start 12/19/18 at 21:00 Metoprolol Succinate (Toprol Xl) 25 mg BID PO Last administered on 12/20/18 08:08; Admin Dose 25 MG; Start 12/19/18 at 21:00 KENTRELL BOONE MD December 20, 2018 11:28
[2018-12-20] MEDS ORDERED: FUROSEMIDE 40 MG INJ IV ONE (11:30)
--- NOTE | 2018-12-20 13:34 | PN ---
Date/Time of Note Date/Time of Note DATE: 12/20/18 TIME: 13:33 Objective Vitals Vital Signs Date Temp Pulse Resp B/P (MAP) Pulse Ox O2 O2 Flow FiO2 Time Delivery Rate 12/20/18 78 20 98 Nasal 3.0 13:21 Cannula 12/20/18 97.7 168/76 12:01 (106) 12/18/18 21 13:50 Intake and Output 12/19/18 12/19/18 12/20/18 1414:59 22:59 06:59 IntakeIntake Total 310 ml 6400 ml 400 ml OutputOutput Total 1300 ml 2500 ml 750 ml BalanceBalance -990 ml 3900 ml -350 ml Results Result Diagram: 12/20/18 0541 12/20/18 0541 Medications Medications Current Medications IV Flush (NS 3 ml) 3 ml PER PROTOCOL IV ; Start 12/14/18 at 19:30 Aspirin (Aspirin) 81 mg DAILY PO Last administered on 12/20/18 08:08; Admin Dose 81 MG; Start 12/15/18 at 09:00 Nitroglycerin (Nitroglycerin (Sl Tab) 0.4 Mg) 1 tab Q5M PRN SL .CHEST PAIN; St art 12/14/18 at 19:30 Acetaminophen (Tylenol Tab) 650 mg Q6H PRN PO .PAIN 1-3 OR TEMP Last administe red on 12/20/18 08:08; Admin Dose 650 MG; Start 12/14/18 at 19:30 Acetaminophen/ Hydrocodone Bitart ([place] (5/325)) 1 tab Q6H PRN PO .PAIN 4-6 Last administered on 12/18/18 02:11; Admin Dose 1 TAB; Start 12/14/18 at 19:30 Morphine Sulfate (morphine) 2 mg Q4H PRN IV .PAIN 7-10 Last administered on 12/20/18 02:31; Admin Dose 2 MG; Start 12/14/18 at 19:30 Atorvastatin Calcium (Lipitor) 80 mg HS PO Last administered on 12/19/18 20:10; Admin Dose 80 MG; Start 12/14/18 at 21:00 Albuterol/ Ipratropium (Duoneb) 3 ml Q6HWA RESP THERAPY HHN Last administered on 12/20/18 13:20; Admin Dose 3 ML; Start 12/15/18 at 14:00 Albuterol/ Ipratropium (Duoneb) 3 ml Q2H RESP THERAPY PRN HHN Dyspnea; Start at 11:00 Arformoterol Tartrate (Brovana (Neb)) 2 ml BID NEB Last administered on 12/20/18 08:41; Admin Dose 2 ML; Start 12/15/18 at 11:00 Pantoprazole (Protonix Tab) 40 mg BID@06,18 PO Last administered on 12/20/18 05:29; Admin Dose 40 MG; Start 12/15/18 at 18:00 Ferric Sodium Gluconate Complex 125 mg/Sodium Chloride 110 ml @ 110 mls/hr DAILY@1300 IVPB Last administered on 12/19/18 13:30; Admin Dose 110 MLS/HR; Start 12/16/18 at 13:00; Stop 12/20/18 at 13:59 Epoetin David-epbx (RETACRIT(esrd)) 10,000 unit MoWeFr@1700 SC Last administered on 12/19/18 17:26; Admin Dose 10,000 UNIT; Start 12/17/18 at 17:00 Finasteride (Proscar) 5 mg DAILY PO Last administered on 12/20/18 08:07; Admin Dose 5 MG; Start 12/16/18 at 09:00 Hydralazine HCl (Apresoline) 10 mg Q4 PRN IV SBP>160 Last administered on 12/18/18 21:51; Admin Dose 10 MG; Start 12/17/18 at 21:30 Lorazepam (Ativan) 0.5 mg Q6H PRN PO ANXIETY Last administered on 12/18/18 23:39; Admin Dose 0.5 MG; Start 12/18/18 at 10:00 Clonidine (Catapres) 0.1 mg Q6H PRN PO SBP GREATER THAN 160; Start 12/19/18 at 09:30 Terazosin HCl (Hytrin) 5 mg HS PO Last administered on 12/19/18 20:10; Admin Dose 5 MG; Start 12/19/18 at 21:00 Metoprolol Succinate (Toprol Xl) 25 mg BID PO Last administered on 12/20/18 08:08; Admin Dose 25 MG; Start 12/19/18 at 21:00 Nifedipine (Procardia Xl) 30 mg BID PO ; Start 12/20/18 at 11:30 VTE Prophylaxis Risk score (from Ns)>0 risk: 8 SCD applied (from Ns): No SCD contraindication: other Lines/Catheters IV Catheter Type: Pleitez in Place: No Assessment/Plan Hospital Course Subjective No chest pain, patient feeling well, CBI stopped Objective Physical exam General: Patient is laying in bed and answers questions appropriately Mentation: Patient is alert and oriented 4, Head: Normocephalic atraumatic Eyes: EOMI, pupils reactive to light Neck: Supple, nontender, midline Respiratory: Clear to auscultation bilaterally Cardiovascular: regular rate, no obvious murmurs Gastrointestinal: non-tender to palpation, bowel sounds heard. Neurological: Moves all extremities spontaneously Skin: No new skin lesions ASSESSMENT & PLAN 88-year-old male with comorbidities including CAD status post CABG, dyslipidemia, obesity, chronic kidney disease, prostate hypertrophy, and hypertension, who came to the emergency room with chief complaint of dyspnea and wheezing that has been progressively getting worse. Patient was also noticed to have elevated troponins in the emergency room. The patient's chest x-ray was showing evidence of mild pulmonary vascular congestion with interstitial edema. The patient was admitted to inpatient setting for further treatment and evaluation. 1. Acute respiratory failure. -Hypoxic. -Most probably secondary to underlying reactive airway disease and CHF exacerbation. -Continue inhaled bronchodilators -S/P tapering dose of steroids. -Continue diuresis as renal function allows. 2. COPD exacerbation. -Remote history of smoking over years. -Continue inhaled bronchodilators -S/P tapering dose of steroids. -Pulmonology following. 3. NSTEMI. -Known history of CAD, status post CABG. -Continue aspirin. -Continue high-dose statins. -Cardiology following. -Patient/family refusing left heart cath. 4. Acute on chronic kidney disease. -Nephrology following. 5. Benign prostatic hypertrophy. -Continue tamsulosin and finasteride. 6. Hypertension. -Blood pressure medications adjusted 7. Dyslipidemia. -Continue statins. 8. Hematuria from traumatic pulling of Pleitez catheter by the patient. -Being followed by Urology. -CBI stopped, monitor hemoglobin 9. Normocytic anemia -Etiology could be multifactorial including the acute blood loss from traumatic pulling of the Pleitez. -Transfuse blood products as indicated. 10. Chronic right lower extremity lymphedema. -Venous Doppler negative for any DVT. 11. CHF exacerbation. -Diastolic dysfunction. -Continue diuresis as renal function allows. 12. Pulmonary hypertension. -PA pressure of 60 mm Hg. -Continue supplemental O2. 13. Fluids, electrolytes, and nutrition. -Renal diet. 14. DVT prophylaxis. -B/L SCDs. 15. Plan. -Monitor hemoglobin for continued decrease in hematuria as well as monitor blood pressure, anticipate discharge in a few days. AMELIA MARTINEZ December 20, 2018 13:34
[2018-12-20] MEDS: SOD FERRIC GLUC COMPLX 125 MG in SOD CHLORIDE 0.9% 100 ML IVPB SCH (13:48)
[2018-12-20] MEDS: NIFEdipine (XL) 30 MG TAB PO SCH ×2 (13:50→20:23)
--- NOTE | 2018-12-20 17:41 | CONS ---
Consult Date/Type/Reason Admit Date/Time Dec 14, 2018 at 19:05 Initial Consult Date 12/16/18 Type of Consultation: Pulm Requesting Provider: MEENA NASH MD Date/Time of Note DATE: 12/20/18 TIME: 17:39 Subjective Doing reasonably well. No events. Objective Vitals Vital Signs Date Temp Pulse Resp B/P (MAP) Pulse Ox O2 O2 Flow FiO2 Time Delivery Rate 12/20/18 82 16:27 12/20/18 98.2 18 167/75 98 Nasal 16:04 (105) Cannula 12/20/18 3.0 13:21 12/18/18 21 13:50 Intake and Output 12/19/18 12/19/18 12/20/18 1515:00 23:00 07:00 IntakeIntake Total 310 ml 6400 ml 400 ml OutputOutput Total 1300 ml 2500 ml 750 ml BalanceBalance -990 ml 3900 ml -350 ml Exam HEENT: Neck supple; no JVD; no LAD CVS: RRR, S1 and S2 CHEST: Clear ABD: Soft, NT, + BS EXT: No c/c/e Results/Medications Result Diagram: 12/20/18 0541 12/20/18 0541 Results 24 hrs Laboratory Tests Test 12/20/18 05:41 White Blood Count 12.5 H Red Blood Count 2.66 L Hemoglobin 7.8 L Hematocrit 24.3 L Mean Corpuscular Volume 91.4 Mean Corpuscular Hemoglobin 29.3 Mean Corpuscular Hemoglobin Concent 32.1 Red Cell Distribution Width 16.5 H Platelet Count 150 Mean Platelet Volume 12.2 H Immature Granulocytes % 10.300 H Neutrophils % 75.6 Lymphocytes % 6.7 L Monocytes % 5.5 Eosinophils % 1.5 Basophils % 0.4 Nucleated Red Blood Cells % 0.2 H Immature Granulocytes # 1.280 H Neutrophils # 9.4 H Lymphocytes # 0.8 Monocytes # 0.7 Eosinophils # 0.2 Basophils # 0.1 Nucleated Red Blood Cells # 0.0 Sodium Level 146 H Potassium Level 3.9 Chloride Level 113 H Carbon Dioxide Level 26 Anion Gap 7 Blood Urea Nitrogen 70 H Creatinine 1.83 H Est Glomerular Filtrat Rate mL/min Glucose Level 114 Calcium Level 9.5 Phosphorus Level 4.0 Magnesium Level 1.8 Home Meds Reported Medications Fenofibrate Nanocrystallized* (Tricor*) 145 Mg Tablet 09/19/10 Azithromycin* (Zithromax*) 250 Mg Tablet 09/19/10 Rosuvastatin Calcium* (Crestor*) 20 Mg Tablet 09/19/10 Dicyclomine Hcl* (Bentyl*) 20 Mg Tablet 09/19/10 Clopidogrel Bisulfate (Plavix) 75 Mg Tablet 09/19/10 Rabeprazole Sodium* (Aciphex*) 20 Mg Tablet. 09/19/10 Terazosin Hcl* (Terazosin Hcl*) 5 Mg Capsule 09/19/10 Aspirin (Adult Low Dose Aspirin) 81 Mg Tablet. 09/19/10 Furosemide (Lasix) 40 Mg Tab 09/19/10 Medications Current Medications IV Flush (NS 3 ml) 3 ml PER PROTOCOL IV ; Start 12/14/18 at 19:30 Aspirin (Aspirin) 81 mg DAILY PO Last administered on 12/20/18 08:08; Admin Dose 81 MG; Start 12/15/18 at 09:00 Nitroglycerin (Nitroglycerin (Sl Tab) 0.4 Mg) 1 tab Q5M PRN SL .CHEST PAIN; Start 12/14/18 at 19:30 Acetaminophen (Tylenol Tab) 650 mg Q6H PRN PO .PAIN 1-3 OR TEMP Last administered on 12/20/18 08:08; Admin Dose 650 MG; Start 12/14/18 at 19:30 Acetaminophen/ Hydrocodone Bitart ([place] (5/325)) 1 tab Q6H PRN PO .PAIN 4-6 Last administered on 12/18/18 02:11; Admin Dose 1 TAB; Start 12/14/18 at 19:30 Morphine Sulfate (morphine) 2 mg Q4H PRN IV .PAIN 7-10 Last administered on 12/20/18 17:10; Admin Dose 2 MG; Start 12/14/18 at 19:30 Atorvastatin Calcium (Lipitor) 80 mg HS PO Last administered on 12/19/18 20:10; Admin Dose 80 MG; Start 12/14/18 at 21:00 Albuterol/ Ipratropium (Duoneb) 3 ml Q6HWA RESP THERAPY HHN Last administered on 12/20/18 13:20; Admin Dose 3 ML; Start 12/15/18 at 14:00 Albuterol/ Ipratropium (Duoneb) 3 ml Q2H RESP THERAPY PRN HHN Dyspnea; Start 12/15/18 at 11:00 Arformoterol Tartrate (Brovana (Neb)) 2 ml BID NEB Last administered on 12/20/18 08:41; Admin Dose 2 ML; Start 12/15/18 at 11:00 Pantoprazole (Protonix Tab) 40 mg BID@06,18 PO Last administered on 12/20/18 05:29; Admin Dose 40 MG; Start 12/15/18 at 18:00 Epoetin David-epbx (RETACRIT(esrd)) 10,000 unit MoWeFr@1700 SC Last administered on 12/19/18 17:26; Admin Dose 10,000 UNIT; Start 12/17/18 at 17:00 Finasteride (Proscar) 5 mg DAILY PO Last administered on 12/20/18 08:07; Admin Dose 5 MG; Start 12/16/18 at 09:00 Hydralazine HCl (Apresoline) 10 mg Q4 PRN IV SBP>160 Last administered on 12/18/18 21:51; Admin Dose 10 MG; Start 12/17/18 at 21:30 Lorazepam (Ativan) 0.5 mg Q6H PRN PO ANXIETY Last administered on 12/18/18 23:39; Admin Dose 0.5 MG; Start 12/18/18 at 10:00 Clonidine (Catapres) 0.1 mg Q6H PRN PO SBP GREATER THAN 160; Start 12/19/18 at 09:30 Terazosin HCl (Hytrin) 5 mg HS PO Last administered on 12/19/18 20:10; Admin Dose 5 MG; Start 12/19/18 at 21:00 Metoprolol Succinate (Toprol Xl) 25 mg BID PO Last administered on 12/20/18 08:08; Admin Dose 25 MG; Start 12/19/18 at 21:00 Nifedipine (Procardia Xl) 30 mg BID PO Last administered on 12/20/18 13:50; Admin Dose 30 MG; Start 12/20/18 at 11:30 Docusate Sodium (Colace) 100 mg BID PO ; Start 12/20/18 at 21:00 Assessment/Plan Assessment/Plan (Daily) 1. Hypoxemic respiratory failure 3. COPD exacerbation, possible pneumonia 4. HFpEF 5. Hypertension 6. Dyslipidemia 7. CAD RECS: 1. BD's 2. Diuresis 3. Follow renal function HOWARD BOLANOS MD December 20, 2018 17:41
[2018-12-20] MEDS: DOCUSATE SODIUM 100 MG CAP PO SCH (20:19)
[2018-12-20] MEDS: TERAZOSIN 5 MG CAP PO SCH (20:21)
[2018-12-20] MEDS: ATORVASTATIN 80 MG TAB PO SCH (20:23)
[2018-12-20] MEDS ORDERED: PHENAZOPYRIDINE 200 MG TAB PO SCH (21:00)
[2018-12-21] VITALS (11 sets, daily range): BP systolic 139–153; BP diastolic 64–75; PULSE 70–102; RESP 18–20
[2018-12-21] MEDS: PANTOPRAZOLE (EC) 40 MG TAB PO SCH ×2 (05:48→16:58)
[2018-12-21] MEDS: ACETAMINOPHEN 325 MG TAB PO PRN (05:48)
[2018-12-21] MEDS: ALBUTEROL/IPRATROPIUM (NEB) 3 ML AMP HHN SCH ×3 (07:35→20:52)
[2018-12-21] MEDS: ARFORMOTEROL TARTRATE 15MCG/2 ML AMP NEB SCH ×2 (07:36→20:52)
[2018-12-21] MEDS: morphine 2 MG INJ IV PRN ×2 (08:33→12:24)
[2018-12-21] MEDS: FINASTERIDE 5 MG TAB PO SCH (08:34)
[2018-12-21] MEDS: NIFEdipine (XL) 30 MG TAB PO SCH ×2 (08:35→21:35)
[2018-12-21] MEDS: DOCUSATE SODIUM 100 MG CAP PO SCH ×2 (08:35→20:47)
[2018-12-21] MEDS: METOPROLOL (XL) 25 MG TAB PO SCH ×2 (08:35→20:48)
[2018-12-21] MEDS: ASPIRIN 81 MG TAB PO SCH (08:35)
[2018-12-21] MEDS ORDERED: FUROSEMIDE 100 MG INJ IV SCH (11:00)
--- NOTE | 2018-12-21 11:05 | CONS ---
Assessment/Plan Assessment/Plan Assessment/Plan 1. Acute renal failure, labs pending, will cont to diurese pending labs today. 2. BP coptrol has improved with additional of adalat 3. Anemia is stable 4. Hypernatremia, await lab Consultation Date/Type/Reason Admit Date/Time Dec 14, 2018 at 19:05 Type of Consult Nephrology Date/Time of Note DATE: 12/21/18 TIME: 11:04 Respiratory: No cough, No shortness of breath Cardiovascular: no complaints Gastrointestinal: no complaints Genitourinary: other (herrera still in place and has urethral pain (family at bedside)) Exam/Review of Systems Vital Signs Vitals Vital Signs Date Temp Pulse Resp B/P (MAP) Pulse Ox O2 O2 Flow FiO2 Time Delivery Rate 12/21/18 84 08:13 12/21/18 20 97 Nasal 2.0 07:36 Cannula 12/21/18 97.3 149/75 07:15 (99) 12/18/18 21 13:50 Intake and Output 12/20/18 12/20/18 12/21/18 1515:00 23:00 07:00 IntakeIntake Total 3700 ml 600 ml OutputOutput Total 2700 ml 850 ml BalanceBalance 1000 ml -250 ml Exam Neck: No jvd Respiratory: clear to auscultation Cardiovascular: regular rate and rhythm Gastrointestinal: soft Extremities: edema (moderate) Labs Result Diagram: 12/21/18 1023 12/20/18 0541 Results 24hrs Laboratory Tests Test 12/20/18 17:15 12/21/18 10:23 Urine Color RED Urine Clarity SLIGHTLY CLOUDY A Urine pH 6.0 Urine Specific [place] 1.006 Urine Ketones NEGATIVE Urine Nitrite NEGATIVE Urine Bilirubin NEGATIVE Urine Urobilinogen NEGATIVE Urine Leukocyte Esterase NEGATIVE Urine Microscopic RBC > 182 H Urine Microscopic WBC 4 Urine Hemoglobin 3+ H Urine Glucose NEGATIVE Urine Total Protein NEGATIVE White Blood Count 11.5 H Red Blood Count 2.91 L Hemoglobin 8.4 L Hematocrit 27.2 L Mean Corpuscular Volume 93.5 Mean Corpuscular Hemoglobin 28.9 L Mean Corpuscular Hemoglobin Concent 30.9 L Red Cell Distribution Width 17.2 H Platelet Count 158 Mean Platelet Volume 11.9 H Immature Granulocytes % 6.500 H Neutrophils % Lymphocytes % Monocytes % Eosinophils % Basophils % Nucleated Red Blood Cells % 0.0 Immature Granulocytes # 0.740 H Neutrophils # Lymphocytes # Monocytes # Eosinophils # Basophils # Nucleated Red Blood Cells # Medications Medications Current Medications IV Flush (NS 3 ml) 3 ml PER PROTOCOL IV ; Start 12/14/18 at 19:30 Aspirin (Aspirin) 81 mg DAILY PO Last administered on 12/21/18 08:35; Admin Dose 81 MG; Start 12/15/18 at 09:00 Nitroglycerin (Nitroglycerin (Sl Tab) 0.4 Mg) 1 tab Q5M PRN SL .CHEST PAIN; Start 12/14/18 at 19:30 Acetaminophen (Tylenol Tab) 650 mg Q6H PRN PO .PAIN 1-3 OR TEMP Last administered on 12/21/18 05:48; Admin Dose 650 MG; Start 12/14/18 at 19:30 Acetaminophen/ Hydrocodone Bitart ([place] (5/325)) 1 tab Q6H PRN PO .PAIN 4-6 Last administered on 12/18/18 02:11; Admin Dose 1 TAB; Start 12/14/18 at 19:30 Morphine Sulfate (morphine) 2 mg Q4H PRN IV .PAIN 7-10 Last administered on 12/21/18 08:33; Admin Dose 2 MG; Start 12/14/18 at 19:30 Atorvastatin Calcium (Lipitor) 80 mg HS PO Last administered on 12/20/18 20:23; Admin Dose 80 MG; Start 12/14/18 at 21:00 Albuterol/ Ipratropium (Duoneb) 3 ml Q6HWA RESP THERAPY HHN Last administered on 12/21/18 07:35; Admin Dose 3 ML; Start 12/15/18 at 14:00 Albuterol/ Ipratropium (Duoneb) 3 ml Q2H RESP THERAPY PRN HHN Dyspnea; Start 12/15/18 at 11:00 Arformoterol Tartrate (Brovana (Neb)) 2 ml BID NEB Last administered on 12/21/18 07:36; Admin Dose 2 ML; Start 12/15/18 at 11:00 Pantoprazole (Protonix Tab) 40 mg BID@06,18 PO Last administered on 12/21/18 05:48; Admin Dose 40 MG; Start 12/15/18 at 18:00 Epoetin David-epbx (RETACRIT(esrd)) 10,000 unit MoWeFr@1700 SC Last administered on 12/19/18 17:26; Admin Dose 10,000 UNIT; Start 12/17/18 at 17:00 Finasteride (Proscar) 5 mg DAILY PO Last administered on 12/21/18 08:34; Admin Dose 5 MG; Start 12/16/18 at 09:00 Hydralazine HCl (Apresoline) 10 mg Q4 PRN IV SBP>160 Last administered on 12/18/18 21:51; Admin Dose 10 MG; Start 12/17/18 at 21:30 Lorazepam (Ativan) 0.5 mg Q6H PRN PO ANXIETY Last administered on 12/18/18 23:39; Admin Dose 0.5 MG; Start 12/18/18 at 10:00 Clonidine (Catapres) 0.1 mg Q6H PRN PO SBP GREATER THAN 160; Start 12/19/18 at 09:30 Terazosin HCl (Hytrin) 5 mg HS PO Last administered on 12/20/18 20:21; Admin Dose 5 MG; Start 12/19/18 at 21:00 Metoprolol Succinate (Toprol Xl) 25 mg BID PO Last administered on 12/21/18 08:35; Admin Dose 25 MG; Start 12/19/18 at 21:00 Nifedipine (Procardia Xl) 30 mg BID PO Last administered on 12/21/18 08:35; Admin Dose 30 MG; Start 12/20/18 at 11:30 Docusate Sodium (Colace) 100 mg BID PO Last administered on 12/21/18 08:35; Admin Dose 100 MG; Start 12/20/18 at 21:00 KENTRELL BOONE MD December 21, 2018 11:05
[2018-12-21] MEDS: FUROSEMIDE 40 MG INJ IV SCH ×2 (12:14→17:00)
--- NOTE | 2018-12-21 13:09 | PN ---
Date/Time of Note Date/Time of Note DATE: 12/21/18 TIME: 13:07 Objective Vitals Vital Signs Date Temp Pulse Resp B/P (MAP) Pulse Ox O2 O2 Flow FiO2 Time Delivery Rate 12/21/18 95 12:34 12/21/18 97.4 18 152/68 93 Nasal 11:20 (96) Cannula 12/21/18 2.0 07:36 12/18/18 21 13:50 Intake and Output 12/20/18 12/20/18 12/21/18 1515:00 23:00 07:00 IntakeIntake Total 3700 ml 600 ml OutputOutput Total 2700 ml 850 ml BalanceBalance 1000 ml -250 ml Results Result Diagram: 12/21/18 1023 12/21/18 1023 Medications Medications Current Medications IV Flush (NS 3 ml) 3 ml PER PROTOCOL IV ; Start 12/14/18 at 19:30 Aspirin (Aspirin) 81 mg DAILY PO Last administered on 12/21/18 08:35; Admin Dose 81 MG; Start 12/15/18 at 09:00 Nitroglycerin (Nitroglycerin (Sl Tab) 0.4 Mg) 1 tab Q5M PRN SL .CHEST PAIN; Start 12/14/18 at 19:30 Acetaminophen (Tylenol Tab) 650 mg Q6H PRN PO .PAIN 1-3 OR TEMP Last adminis tered on 12/21/18 05:48; Admin Dose 650 MG; Start 12/14/18 at 19:30 Acetaminophen/ Hydrocodone Bitart ([place] (5/325)) 1 tab Q6H PRN PO .PAIN 4-6 Last administered on 12/18/18 02:11; Admin Dose 1 TAB; Start 12/14/18 at 19:30 Morphine Sulfate (morphine) 2 mg Q4H PRN IV .PAIN 7-10 Last administered on 12/21/18 12:24; Admin Dose 2 MG; Start 12/14/18 at 19:30 Atorvastatin Calcium (Lipitor) 80 mg HS PO Last administered on 12/20/18 20:23; Admin Dose 80 MG; Start 12/14/18 at 21:00 Albuterol/ Ipratropium (Duoneb) 3 ml Q6HWA RESP THERAPY HHN Last administered on 12/21/18 07:35; Admin Dose 3 ML; Start 12/15/18 at 14:00 Albuterol/ Ipratropium (Duoneb) 3 ml Q2H RESP THERAPY PRN HHN Dyspnea; Start 12/15/18 at 11:00 Arformoterol Tartrate (Brovana (Neb)) 2 ml BID NEB Last administered on 12/21/18 07:36; Admin Dose 2 ML; Start 12/15/18 at 11:00 Pantoprazole (Protonix Tab) 40 mg BID@06,18 PO Last administered on 12/21/18 05:48; Admin Dose 40 MG; Start 12/15/18 at 18:00 Epoetin David-epbx (RETACRIT(esrd)) 10,000 unit MoWeFr@1700 SC Last administered on 12/19/18 17:26; Admin Dose 10,000 UNIT; Start 12/17/18 at 17:00 Finasteride (Proscar) 5 mg DAILY PO Last administered on 12/21/18 08:34; Admin Dose 5 MG; Start 12/16/18 at 09:00 Hydralazine HCl (Apresoline) 10 mg Q4 PRN IV SBP>160 Last administered on 12/18/18 21:51; Admin Dose 10 MG; Start 12/17/18 at 21:30 Lorazepam (Ativan) 0.5 mg Q6H PRN PO ANXIETY Last administered on 12/18/18 23:39; Admin Dose 0.5 MG; Start 12/18/18 at 10:00 Clonidine (Catapres) 0.1 mg Q6H PRN PO SBP GREATER THAN 160; Start 12/19/18 at 09:30 Terazosin HCl (Hytrin) 5 mg HS PO Last administered on 12/20/18 20:21; Admin Dose 5 MG; Start 12/19/18 at 21:00 Metoprolol Succinate (Toprol Xl) 25 mg BID PO Last administered on 12/21/18 08:35; Admin Dose 25 MG; Start 12/19/18 at 21:00 Nifedipine (Procardia Xl) 30 mg BID PO Last administered on 12/21/18 08:35; Admin Dose 30 MG; Start 12/20/18 at 11:30 Docusate Sodium (Colace) 100 mg BID PO Last administered on 5/5/19at 08:35; Admin Dose 100 MG; Start 12/20/18 at 21:00 Potassium Chloride (Klor-Con 20) 20 meq BID PO ; Start 12/21/18 at 21:00 Furosemide (Lasix) 80 mg BID DIURETICS IV Last administered on 12/21/18at 12:14; Admin Dose 80 MG; Start 12/21/18 at 12:07 VTE Prophylaxis Risk score (from [facility])>0 risk: 6 SCD applied (from [facility]): No SCD contraindication: other Lines/Catheters IV Catheter Type: Pleitez in Place: No Assessment/Plan Hospital Course Subjective Patient had more bladder pain, did bladder scan, patient retaining 800 cc, instantly felt better and then drained with new Pleitez placement. Objective Physical exam General: Patient is laying in bed and answers questions appropriately Mentation: Patient is alert and oriented 4, Head: Normocephalic atraumatic Eyes: EOMI, pupils reactive to light Neck: Supple, nontender, midline Respiratory: Clear to auscultation bilaterally Cardiovascular: regular rate, no obvious murmurs Gastrointestinal: non-tender to palpation, bowel sounds heard. Neurological: Moves all extremities spontaneously Skin: No new skin lesions, right lower extremity lymphedema and swelling ASSESSMENT & PLAN 88-year-old male with comorbidities including CAD status post CABG, dyslipidemia, obesity, chronic kidney disease, prostate hypertrophy, and hypertension, who came to the emergency room with chief complaint of dyspnea and wheezing that has been progressively getting worse. Patient was also noticed to have elevated troponins in the emergency room. The patient's chest x-ray was showing evidence of mild pulmonary vascular congestion with interstitial edema. The patient was admitted to inpatient setting for further treatment and evaluation. 1. Acute respiratory failure. -Hypoxic. -Most probably secondary to underlying reactive airway disease and CHF exacerbation. -Continue inhaled bronchodilators -S/P tapering dose of steroids. -Continue diuresis as renal function allows. 2. COPD exacerbation. -Remote history of smoking over years. -Continue inhaled bronchodilators -S/P tapering dose of steroids. -Pulmonology following. 3. NSTEMI. -Known history of CAD, status post CABG. -Continue aspirin. -Continue high-dose statins. -Cardiology following. -Patient/family refused left heart cath. 4. Acute on chronic kidney disease. -Nephrology following. 5. Benign prostatic hypertrophy. -Continue tamsulosin and finasteride. 6. Hypertension. -Blood pressure medications adjusted 7. Dyslipidemia. -Continue statins. 8. Hematuria from traumatic pulling of Pleitez catheter by the patient. -Being followed by Urology. -CBI stopped, monitor hemoglobin Urinary retention -Likely secondary clots due to above hematuria, replaced Pleitez catheter per urology recommendations, patient catheter not draining well, will reevaluate tomorrow morning. 9. Normocytic anemia -Etiology could be multifactorial including the acute blood loss from traumatic pulling of the Pleitez. -Transfuse blood products as indicated. 10. Chronic right lower extremity lymphedema. -Venous Doppler negative for any DVT. 11. CHF exacerbation. -Diastolic dysfunction. -Continue diuresis as renal function allows. 12. Pulmonary hypertension. -PA pressure of 60 mm Hg. -Continue supplemental O2. 13. Fluids, electrolytes, and nutrition. -Renal diet. 14. DVT prophylaxis. -B/L SCDs. 15. Plan. -Watch BP, watch hemoglobin, assess for removal of Pleitez catheter, titrate IV Lasix to oral soon. AMELIA MARTINEZ December 21, 2018 13:09
--- NOTE | 2018-12-21 14:39 | CONS ---
Consult Date/Type/Reason Admit Date/Time Dec 14, 2018 at 19:05 Initial Consult Date 12/16/18 Type of Consultation: Pulm Requesting Provider: MEENA NASH MD Date/Time of Note DATE: 12/21/18 TIME: 14:36 Subjective No overnight events. Objective Vitals Vital Signs Date Temp Pulse Resp B/P (MAP) Pulse Ox O2 O2 Flow FiO2 Time Delivery Rate 12/21/18 95 12:34 12/21/18 97.4 18 152/68 93 Nasal 11:20 (96) Cannula 12/21/18 2.0 07:36 12/18/18 21 13:50 Intake and Output 12/20/18 12/20/18 12/21/18 1515:00 23:00 07:00 IntakeIntake Total 3700 ml 600 ml OutputOutput Total 2700 ml 850 ml BalanceBalance 1000 ml -250 ml Exam HEENT: Neck supple; no JVD; no LAD CVS: RRR, S1 and S2 CHEST: Clear ABD: Soft, NT, + BS EXT: No c/c/e Results/Medications Result Diagram: 12/21/18 1023 12/21/18 1023 Results 24 hrs Laboratory Tests Test 12/20/18 17:15 12/21/18 10:23 Urine Color RED Urine Clarity SLIGHTLY CLOUDY A Urine pH 6.0 Urine Specific [place] 1.006 Urine Ketones NEGATIVE Urine Nitrite NEGATIVE Urine Bilirubin NEGATIVE Urine Urobilinogen NEGATIVE Urine Leukocyte Esterase NEGATIVE Urine Microscopic RBC > 182 H Urine Microscopic WBC 4 Urine Hemoglobin 3+ H Urine Glucose NEGATIVE Urine Total Protein NEGATIVE White Blood Count 11.5 H Red Blood Count 2.91 L Hemoglobin 8.4 L Hematocrit 27.2 L Mean Corpuscular Volume 93.5 Mean Corpuscular Hemoglobin 28.9 L Mean Corpuscular Hemoglobin Concent 30.9 L Red Cell Distribution Width 17.2 H Platelet Count 158 Mean Platelet Volume 11.9 H Immature Granulocytes % 6.500 H Neutrophils % Segmented Neutrophils % (Manual) 86 H Lymphocytes % Lymphocytes % (Manual) 8 L Monocytes % Monocytes % (Manual) 2 Eosinophils % Eosinophils % (Manual) 2 Basophils % Myelocytes % (Manual) 2 H Nucleated Red Blood Cells % 0.0 Immature Granulocytes # 0.740 H Neutrophils # Lymphocytes (Manual) 0.9 Lymphocytes # Monocytes # Monocytes # (Manual) 0.2 L Eosinophils # Basophils # Myelocytes # 0.2 H Nucleated Red Blood Cells # Platelet Estimate NORMAL Polychromasia 2+ Anisocytosis 1+ Sodium Level 143 Potassium Level 4.0 Chloride Level 111 H Carbon Dioxide Level 27 Anion Gap 5 Blood Urea Nitrogen 59 H Creatinine 1.64 H Est Glomerular Filtrat Rate mL/min Glucose Level 166 Calcium Level 9.1 Phosphorus Level 3.6 Magnesium Level 1.7 Home Meds Reported Medications Fenofibrate Nanocrystallized* (Tricor*) 145 Mg Tablet 09/19/10 Azithromycin* (Zithromax*) 250 Mg Tablet 09/19/10 Rosuvastatin Calcium* (Crestor*) 20 Mg Tablet 09/19/10 Dicyclomine Hcl* (Bentyl*) 20 Mg Tablet 09/19/10 Clopidogrel Bisulfate (Plavix) 75 Mg Tablet 09/19/10 Rabeprazole Sodium* (Aciphex*) 20 Mg Tablet. 09/19/10 Terazosin Hcl* (Terazosin Hcl*) 5 Mg Capsule 09/19/10 Aspirin (Adult Low Dose Aspirin) 81 Mg Tablet. 09/19/10 Furosemide (Lasix) 40 Mg Tab 09/19/10 Medications Current Medications IV Flush (NS 3 ml) 3 ml PER PROTOCOL IV ; Start 12/14/18 at 19:30 Aspirin (Aspirin) 81 mg DAILY PO Last administered on 12/21/18 08:35; Admin Dose 81 MG; Start 12/15/18 at 09:00 Nitroglycerin (Nitroglycerin (Sl Tab) 0.4 Mg) 1 tab Q5M PRN SL .CHEST PAIN; Start 12/14/18 at 19:30 Acetaminophen (Tylenol Tab) 650 mg Q6H PRN PO .PAIN 1-3 OR TEMP Last adminis tered on 12/21/18 05:48; Admin Dose 650 MG; Start 12/14/18 at 19:30 Acetaminophen/ Hydrocodone Bitart ([place] (5/325)) 1 tab Q6H PRN PO .PAIN 4-6 Last administered on 12/18/18 02:11; Admin Dose 1 TAB; Start 12/14/18 at 19:30 Morphine Sulfate (morphine) 2 mg Q4H PRN IV .PAIN 7-10 Last administered on 12/21/18 12:24; Admin Dose 2 MG; Start 12/14/18 at 19:30 Atorvastatin Calcium (Lipitor) 80 mg HS PO Last administered on 12/20/18 20:23; Admin Dose 80 MG; Start 12/14/18 at 21:00 Albuterol/ Ipratropium (Duoneb) 3 ml Q6HWA RESP THERAPY HHN Last administered on 12/21/18 07:35; Admin Dose 3 ML; Start 12/15/18 at 14:00 Albuterol/ Ipratropium (Duoneb) 3 ml Q2H RESP THERAPY PRN HHN Dyspnea; Start 12/15/18 at 11:00 Arformoterol Tartrate (Brovana (Neb)) 2 ml BID NEB Last administered on 12/21/18 07:36; Admin Dose 2 ML; Start 12/15/18 at 11:00 Pantoprazole (Protonix Tab) 40 mg BID@06,18 PO Last administered on 12/21/18 05:48; Admin Dose 40 MG; Start 12/15/18 at 18:00 Epoetin David-epbx (RETACRIT(esrd)) 10,000 unit MoWeFr@1700 SC Last administered on 12/19/18 17:26; Admin Dose 10,000 UNIT; Start 12/17/18 at 17:00 Finasteride (Proscar) 5 mg DAILY PO Last administered on 12/21/18 08:34; Admin Dose 5 MG; Start 12/16/18 at 09:00 Hydralazine HCl (Apresoline) 10 mg Q4 PRN IV SBP>160 Last administered on 12/18/18 21:51; Admin Dose 10 MG; Start 12/17/18 at 21:30 Lorazepam (Ativan) 0.5 mg Q6H PRN PO ANXIETY Last administered on 12/18/18 23:39; Admin Dose 0.5 MG; Start 12/18/18 at 10:00 Clonidine (Catapres) 0.1 mg Q6H PRN PO SBP GREATER THAN 160; Start 12/19/18 at 09:30 Terazosin HCl (Hytrin) 5 mg HS PO Last administered on 12/20/18 20:21; Admin Dose 5 MG; Start 12/19/18 at 21:00 Metoprolol Succinate (Toprol Xl) 25 mg BID PO Last administered on 12/21/18 08:35; Admin Dose 25 MG; Start 12/19/18 at 21:00 Nifedipine (Procardia Xl) 30 mg BID PO Last administered on 12/21/18 08:35; Admin Dose 30 MG; Start 12/20/18 at 11:30 Docusate Sodium (Colace) 100 mg BID PO Last administered on 12/21/18 08:35; Admin Dose 100 MG; Start 12/20/18 at 21:00 Potassium Chloride (Klor-Con 20) 20 meq BID PO ; Start 12/21/18 at 21:00 Furosemide (Lasix) 80 mg BID DIURETICS IV Last administered on 12/21/18 12:14; Admin Dose 80 MG; Start 12/21/18 at 12:07 Assessment/Plan Assessment/Plan (Daily) 1. Hypoxemic respiratory failure 3. COPD exacerbation, possible pneumonia 4. HFpEF 5. Hypertension 6. Dyslipidemia 7. CAD RECS: 1. BD's 2. Diuresis as per Renal 3. Follow renal function HOWARD BOLANOS MD December 21, 2018 14:39
[2018-12-21] MEDS: ATORVASTATIN 80 MG TAB PO SCH (20:46)
[2018-12-21] MEDS: POTASSIUM CHLORIDE (SR) 20 MEQ TAB PO SCH (20:47)
[2018-12-21] MEDS: TERAZOSIN 5 MG CAP PO SCH (20:48)
[2018-12-22] VITALS (10 sets, daily range): BP systolic 144–158; BP diastolic 65–70; PULSE 61–79; RESP 16–18
[2018-12-22] MEDS: PANTOPRAZOLE (EC) 40 MG TAB PO SCH ×2 (05:41→17:08)
[2018-12-22] MEDS: FUROSEMIDE 40 MG INJ IV SCH (05:42)
[2018-12-22] MEDS: DOCUSATE SODIUM 100 MG CAP PO SCH ×2 (08:41→20:40)
[2018-12-22] MEDS: POTASSIUM CHLORIDE (SR) 20 MEQ TAB PO SCH ×2 (08:41→21:54)
[2018-12-22] MEDS: METOPROLOL (XL) 25 MG TAB PO SCH ×2 (08:42→20:42)
[2018-12-22] MEDS: ASPIRIN 81 MG TAB PO SCH (08:42)
[2018-12-22] MEDS: FINASTERIDE 5 MG TAB PO SCH (08:42)
[2018-12-22] MEDS: NIFEdipine (XL) 30 MG TAB PO SCH ×2 (08:42→20:42)
[2018-12-22] MEDS: ALBUTEROL/IPRATROPIUM (NEB) 3 ML AMP HHN SCH (09:06)
--- NOTE | 2018-12-22 10:25 | OPR ---
DATE OF OPERATION: 12/22/2018 SUBJECTIVE: The patient underwent a trial of void. Yesterday he was unable to urinate with postvoid residual of 800 mL and thus a Pleitez catheter was reinserted. The patient is currently on Hytrin 5 m g p.o. daily. PHYSICAL EXAMINATION: GENERAL: Resting comfortably in bed with daughter at his side. ABDOMEN: Soft, nondistended, nontender. No CVA tenderness, no masses. Pleitez catheter draining rex r yellow urine with multiple very small clots. LABORATORY DATA: Hemoglobin 8.2, creatinine 1.7. White blood count 9.3. IMPRESSION: Urinary retention, status post traumatic removal of Pleitez catheter with subsequent hemat uria. PLAN: Suggest holding of Hytrin if medical condition allows and change to Flomax 0.4 mg 30 minutes a fter dinner, add on Proscar 5 mg p.o. daily with future trial of void. All questions answered to the patient and daughter. Dictated By: GEOFFREY RUANO MD EGR/NTS Conf#: [id number] DID#: [id number] CC: LAUREN NELSON MD; AMELIA MARTINEZ MD; THIERRY URIARTE MD;*EndCC*
--- NOTE | 2018-12-22 13:36 | CONS ---
Assessment/Plan Assessment/Plan Hospital Course (Demo Recall) 1. Acute renal failure superimposed on chronic kidney disease. His renal function continues to improve . He is probably close to his baseline renal function. 2. Anemia of chronic kidney disease and blood loss from gross hematuria. His hemoglobin is stable . 3, respiratory failure due to CHF and COPD. He is improving each day . I did speak to his hospitalist, Dr. Falcon, and he is going to change him to oral diuretics which I agree with. 4. Hypertension. His blood pressure is high. I am going to add clonidine and Terazosin . His blood pressure does seem lower. I would continue these medications. 5. Hypernatremia 6 urinary retention. He has a Pleitez catheter in place. Consultation Date/Type/Reason Admit Date/Time Dec 14, 2018 at 19:05 Initial Consult Date 12/16/18 Type of Consult Nephrology Requesting Provider: MEENA NASH MD Date/Time of Note DATE: 12/22/18 TIME: 13:29 24 HR Interval Summary Free Text/Dictation Patient is awake. His son is in the room with him. The son says that he is feeling better. The patient is now off oxygen and seems comfortable. Constitutional: no complaints, improved Exam/Review of Systems Exam Vitals Vital Signs Date Temp Pulse Resp B/P (MAP) Pulse Ox O2 O2 Flow FiO2 Time Delivery Rate 12/22/18 76 12:00 12/22/18 97.6 18 147/67 99 Nasal 2.0 11:45 (93) Cannula 12/21/18 21 20:52 Intake and Output 12/21/18 12/21/18 12/22/18 1515:00 23:00 07:00 IntakeIntake Total 600 ml 550 ml OutputOutput Total 2000 ml 2000 ml BalanceBalance -1400 ml -1450 ml Exam He has marked lymphedema of the right leg. He has trace edema of the left leg. He has flank edema. Constitutional: alert, oriented, frail Respiratory: clear to auscultation Cardiovascular: regular rate and rhythm, edema Gastrointestinal: soft, non-tender Extremities: edema Results Result Diagram: 12/22/18 0600 12/22/18 0600 Results 24hrs Laboratory Tests Test 12/22/18 06:00 White Blood Count 9.3 Red Blood Count 2.79 L Hemoglobin 8.2 L Hematocrit 26.0 L Mean Corpuscular Volume 93.2 Mean Corpuscular Hemoglobin 29.4 Mean Corpuscular Hemoglobin Concent 31.5 L Red Cell Distribution Width 17.2 H Platelet Count 155 Mean Platelet Volume 12.2 H Immature Granulocytes % 6.300 H Neutrophils % 76.2 Segmented Neutrophils % (Manual) 86 H Band Neutrophils % (Manual) 3 Lymphocytes % 9.2 L Lymphocytes % (Manual) 5 L Monocytes % 6.0 Monocytes % (Manual) 3 Eosinophils % 2.0 Eosinophils % (Manual) 2 Basophils % 0.3 Myelocytes % (Manual) 1 H Nucleated Red Blood Cells % 0.0 Immature Granulocytes # 0.590 H Neutrophils # 7.1 Neutrophils # (Manual) 8.0 H Band Neutrophils # 0.2 Lymphocytes (Manual) 0.4 L Lymphocytes # 0.9 Monocytes # 0.6 Monocytes # (Manual) 0.2 L Eosinophils # 0.2 Basophils # 0.0 Myelocytes # 0.0 Nucleated Red Blood Cells # 0.0 Platelet Estimate NORMAL Giant Platelets 1 H Polychromasia 1+ Anisocytosis 1+ Macrocytosis 1+ Sodium Level 146 H Potassium Level 3.5 Chloride Level 109 Carbon Dioxide Level 30 Anion Gap 7 Blood Urea Nitrogen 55 H Creatinine 1.70 H Est Glomerular Filtrat Rate mL/min Glucose Level 100 # Calcium Level 9.0 Phosphorus Level 4.1 Magnesium Level 1.7 Medications Medication Current Medications IV Flush (NS 3 ml) 3 ml PER PROTOCOL IV ; Start 12/14/18 at 19:30 Aspirin (Aspirin) 81 mg DAILY PO Last administered on 12/22/18at 08:42; Admin Dose 81 MG; Start 12/15/18 at 09:00 Nitroglycerin (Nitroglycerin (Sl Tab) 0.4 Mg) 1 tab Q5M PRN SL .CHEST PAIN; Start 12/14/18 at 19:30 Acetaminophen (Tylenol Tab) 650 mg Q6H PRN PO .PAIN 1-3 OR TEMP Last administered on 12/21/18at 05:48; Admin Dose 650 MG; Start 12/14/18 at 19:30 Acetaminophen/ Hydrocodone Bitart ([place] (5/325)) 1 tab Q6H PRN PO .PAIN 4-6 Last administered on 12/18/18at 02:11; Admin Dose 1 TAB; Start 12/14/18 at 19:30 Morphine Sulfate (morphine) 2 mg Q4H PRN IV .PAIN 7-10 Last administered on 12/21/18 12:24; Admin Dose 2 MG; Start 12/14/18 at 19:30 Atorvastatin Calcium (Lipitor) 80 mg HS PO Last administered on 12/21/18 20:46; Admin Dose 80 MG; Start 12/14/18 at 21:00 Albuterol/ Ipratropium (Duoneb) 3 ml Q6HWA RESP THERAPY HHN Last administered on 12/22/18 09:06; Admin Dose 3 ML; Start 12/15/18 at 14:00 Albuterol/ Ipratropium (Duoneb) 3 ml Q2H RESP THERAPY PRN HHN Dyspnea; Start 12/15/18 at 11:00 Arformoterol Tartrate (Brovana (Neb)) 2 ml BID NEB Last administered on 12/21/18 20:52; Admin Dose 2 ML; Start 12/15/18 at 11:00 Pantoprazole (Protonix Tab) 40 mg BID@06,18 PO Last administered on 12/22/18 05:41; Admin Dose 40 MG; Start 12/15/18 at 18:00 Epoetin David-epbx (RETACRIT(esrd)) 10,000 unit MoWeFr@1700 SC Last administered on 12/19/18 17:26; Admin Dose 10,000 UNIT; Start 12/17/18 at 17:00 Finasteride (Proscar) 5 mg DAILY PO Last administered on 12/22/18 08:42; Admin Dose 5 MG; Start 12/16/18 at 09:00 Hydralazine HCl (Apresoline) 10 mg Q4 PRN IV SBP>160 Last administered on 12/18/18 21:51; Admin Dose 10 MG; Start 12/17/18 at 21:30 Lorazepam (Ativan) 0.5 mg Q6H PRN PO ANXIETY Last administered on 12/18/18 23:39; Admin Dose 0.5 MG; Start 12/18/18 at 10:00 Clonidine (Catapres) 0.1 mg Q6H PRN PO SBP GREATER THAN 160; Start 12/19/18 at 09:30 Terazosin HCl (Hytrin) 5 mg HS PO Last administered on 12/21/18 20:48; Admin Dose 5 MG; Start 12/19/18 at 21:00 Metoprolol Succinate (Toprol Xl) 25 mg BID PO Last administered on 12/22/18 08:42; Admin Dose 25 MG; Start 12/19/18 at 21:00 Nifedipine (Procardia Xl) 30 mg BID PO Last administered on 12/22/18 08:42; Admin Dose 30 MG; Start 12/20/18 at 11:30 Docusate Sodium (Colace) 100 mg BID PO Last administered on 12/22/18 08:41; Admin Dose 100 MG; Start 12/20/18 at 21:00 Potassium Chloride (Klor-Con 20) 20 meq BID PO Last administered on 12/22/18 08:41; Admin Dose 20 MEQ; Start 12/21/18 at 21:00 Furosemide (Lasix) 40 mg BID DIURETICS PO ; Start 12/22/18 at 18:00 MEENA NASH MD December 22, 2018 13:36
--- NOTE | 2018-12-22 13:36 | PN ---
Date/Time of Note Date/Time of Note DATE: 12/22/18 TIME: 13:35 Objective Vitals Vital Signs Date Temp Pulse Resp B/P (MAP) Pulse Ox O2 O2 Flow FiO2 Time Delivery Rate 12/22/18 76 12:00 12/22/18 97.6 18 147/67 99 Nasal 2.0 11:45 (93) Cannula 12/21/18 21 20:52 Intake and Output 12/21/18 12/21/18 12/22/18 1515:00 23:00 07:00 IntakeIntake Total 600 ml 550 ml OutputOutput Total 2000 ml 2000 ml BalanceBalance -1400 ml -1450 ml Results Result Diagram: 12/22/18 0600 12/22/18 0600 Medications Medications Current Medications IV Flush (NS 3 ml) 3 ml PER PROTOCOL IV ; Start 12/14/18 at 19:30 Aspirin (Aspirin) 81 mg DAILY PO Last administered on 12/22/18 08:42; Admin Dose 81 MG; Start 12/15/18 at 09:00 Nitroglycerin (Nitroglycerin (Sl Tab) 0.4 Mg) 1 tab Q5M PRN SL .CHEST PAIN; Start 12/14/18 at 19:30 Acetaminophen (Tylenol Tab) 650 mg Q6H PRN PO .PAIN 1-3 OR TEMP Last administered on 12/21/18 05:48; Admin Dose 650 MG; Start 12/14/18 at 19:30 Acetaminophen/ Hydrocodone Bitart ([place] (5/325)) 1 tab Q6H PRN PO .PAIN 4-6 Last administered on 12/18/18 02:11; Admin Dose 1 TAB; Start 12/14/18 at 19:30 Morphine Sulfate (morphine) 2 mg Q4H PRN IV .PAIN 7-10 Last administered on 12/21/18 12:24; Admin Dose 2 MG; Start 12/14/18 at 19:30 Atorvastatin Calcium (Lipitor) 80 mg HS PO Last administered on 12/21/18 20:46; Admin Dose 80 MG; Start 12/14/18 at 21:00 Albuterol/ Ipratropium (Duoneb) 3 ml Q6HWA RESP THERAPY HHN Last administered on 12/22/18 09:06; Admin Dose 3 ML; Start 12/15/18 at 14:00 Albuterol/ Ipratropium (Duoneb) 3 ml Q2H RESP THERAPY PRN HHN Dyspnea; Start 12/15/18 at 11:00 Arformoterol Tartrate (Brovana (Neb)) 2 ml BID NEB Last administered on 12/21/18 20:52; Admin Dose 2 ML; Start 12/15/18 at 11:00 Pantoprazole (Protonix Tab) 40 mg BID@06,18 PO Last administered on 12/22/18 05:41; Admin Dose 40 MG; Start 12/15/18 at 18:00 Epoetin David-epbx (RETACRIT(esrd)) 10,000 unit MoWeFr@1700 SC Last administered on 12/19/18 17:26; Admin Dose 10,000 UNIT; Start 12/17/18 at 17:00 Finasteride (Proscar) 5 mg DAILY PO Last administered on 12/22/18 08:42; Admin Dose 5 MG; Start 12/16/18 at 09:00 Hydralazine HCl (Apresoline) 10 mg Q4 PRN IV SBP>160 Last administered on 12/18/18 21:51; Admin Dose 10 MG; Start 12/17/18 at 21:30 Lorazepam (Ativan) 0.5 mg Q6H PRN PO ANXIETY Last administered on 12/18/18 23:39; Admin Dose 0.5 MG; Start 12/18/18 at 10:00 Clonidine (Catapres) 0.1 mg Q6H PRN PO SBP GREATER THAN 160; Start 12/19/18 at 09:30 Terazosin HCl (Hytrin) 5 mg HS PO Last administered on 12/21/18 20:48; Admin Dose 5 MG; Start 12/19/18 at 21:00 Metoprolol Succinate (Toprol Xl) 25 mg BID PO Last administered on 12/22/18 08:42; Admin Dose 25 MG; Start 12/19/18 at 21:00 Nifedipine (Procardia Xl) 30 mg BID PO Last administered on 12/22/18 08:42; Admin Dose 30 MG; Start 12/20/18 at 11:30 Docusate Sodium (Colace) 100 mg BID PO Last administered on 12/22/18 08:41; Admin Dose 100 MG; Start 12/20/18 at 21:00 Potassium Chloride (Klor-Con 20) 20 meq BID PO Last administered on 12/22/18at 08:41; Admin Dose 20 MEQ; Start 12/21/18 at 21:00 Furosemide (Lasix) 40 mg BID DIURETICS PO ; Start 12/22/18 at 18:00 Potassium Chloride (Klor-Con 10) 30 meq ONCE ONCE PO ; Start 12/22/18 at 14:00; Stop 12/22/18 at 14:01; Status UNV Magnesium Sulfate 50 ml @ 25 mls/hr ONCE ONCE IVPB ; Start 12/22/18 at 14:00; Stop 12/22/18 at 15:59; Status UNV VTE Prophylaxis Risk score (from [facility] [place]0 risk: 6 SCD applied (from Ns): No SCD contraindication: other Lines/Catheters IV Catheter Type: Pleitez in Place: No Assessment/Plan Hospital Course Subjective Patient doing well, off nasal cannula right now and able to stand. Still with Pleitez Objective Physical exam General: Patient is laying in bed and answers questions appropriately Mentation: Patient is alert and oriented 4, Head: Normocephalic atraumatic Eyes: EOMI, pupils reactive to light Neck: Supple, nontender, midline Respiratory: Clear to auscultation bilaterally Cardiovascular: regular rate, no obvious murmurs Gastrointestinal: non-tender to palpation, bowel sounds heard. Neurological: Moves all extremities spontaneously Skin: No new skin lesions, right lower extremity lymphedema and swelling ASSESSMENT & PLAN 88-year-old male with comorbidities including CAD status post CABG, d yslipidemia, obesity, chronic kidney disease, prostate hypertrophy, and hypertension, who came to the emergency room with chief complaint of dyspnea and wheezing that has been progressively getting worse. Patient was also noticed to have elevated troponins in the emergency room. The patient's chest x-ray was showing evidence of mild pulmonary vascular congestion with interstitial edema. The patient was admitted to inpatient setting for further treatment and evaluation. 1. Acute respiratory failure. Resolving significantly -Hypoxic. -Most probably secondary to underlying reactive airway disease and CHF exacerbation. -Continue inhaled bronchodilators -S/P tapering dose of steroids. -Continue diuresis as renal function allows. 2. COPD exacerbation. -Remote history of smoking over years. -Continue inhaled bronchodilators -S/P tapering dose of steroids. -Pulmonology following. 3. NSTEMI. -Known history of CAD, status post CABG. -Continue aspirin. -Continue high-dose statins. -Cardiology following. -Patient/family refused left heart cath. 4. Acute on chronic kidney disease. -Nephrology following. 5. Benign prostatic hypertrophy. -Continue finasteride. 6. Hypertension. -Blood pressure medications adjusted 7. Dyslipidemia. -Continue statins. 8. Hematuria from traumatic pulling of Pleitez catheter by the patient. -Being followed by Urology. -CBI stopped, monitor hemoglobin -Remove Pleitez catheter as tolerated Urinary retention -Likely secondary clots due to above hematuria, replaced Pleitez catheter per urology recommendations, remove Pleitez per urology recommendations when okay. 9. Normocytic anemia -Etiology could be multifactorial including the acute blood loss from traumatic pulling of the Pleitez. -Transfuse blood products as indicated. 10. Chronic right lower extremity lymphedema. -Venous Doppler negative for any DVT. 11. CHF exacerbation. -Diastolic dysfunction. -Continue diuresis as renal function allows. 12. Pulmonary hypertension. -PA pressure of 60 mm Hg. -stop supplemental O2. 13. Fluids, electrolytes, and nutrition. -Renal diet. 14. DVT prophylaxis. -B/L SCDs. 15. Plan. -Watch BP, watch hemoglobin, assess for removal of Pleitez catheter, iv to oral lasix today AMELIA MARTINEZ December 22, 2018 13:36
[2018-12-22] MEDS ORDERED: MAGNESIUM SULFATE 2 GM/50 ML 50 ML IVPB ONE (14:00)
[2018-12-22] MEDS ORDERED: POTASSIUM CHLORIDE (SR) 10 MEQ TAB PO ONE (14:00)
--- NOTE | 2018-12-22 14:40 | CONS ---
Consult Date/Type/Reason Admit Date/Time Dec 14, 2018 at 19:05 Initial Consult Date 12/16/18 Type of Consult Pulmonary Requesting Provider: MEENA NASH MD Date/Time of Note DATE: 12/22/18 TIME: 14:39 Subjective Patient appears comfortable this morning no respiratory distress Objective Vital Signs Date Temp Pulse Resp B/P (MAP) Pulse Ox O2 O2 Flow FiO2 Time Delivery Rate 12/22/18 76 12:00 12/22/18 97.6 18 147/67 99 Nasal 2.0 11:45 (93) Cannula 12/21/18 21 20:52 Intake and Output 12/21/18 12/21/18 12/22/18 1515:00 23:00 07:00 IntakeIntake Total 600 ml 550 ml OutputOutput Total 2000 ml 2000 ml BalanceBalance -1400 ml -1450 ml Exam GENERAL: VITAL SIGNS: per chart NECK: Supple. No JVD or lymphadenopathy. CARDIAC EXAM: S1, S2. No added sounds or murmurs. CHEST: clear bilaterally, No added sounds, rales or wheezes ABDOMEN: Soft, nontender. No guarding or rebound. EXTREMITIES: No cyanosis, clubbing or edema. NEUROLOGIC: Generalized weakness. No focal deficits. Vent Setting Fraction of Inspired Oxygen pe: 21 Results/Medications Result Diagram: 12/22/18 0600 12/22/18 0600 Results 24 hrs Laboratory Tests Test 12/22/18 06:00 White Blood Count 9.3 Red Blood Count 2.79 L Hemoglobin 8.2 L Hematocrit 26.0 L Mean Corpuscular Volume 93.2 Mean Corpuscular Hemoglobin 29.4 Mean Corpuscular Hemoglobin Concent 31.5 L Red Cell Distribution Width 17.2 H Platelet Count 155 Mean Platelet Volume 12.2 H Immature Granulocytes % 6.300 H Neutrophils % 76.2 Segmented Neutrophils % (Manual) 86 H Band Neutrophils % (Manual) 3 Lymphocytes % 9.2 L Lymphocytes % (Manual) 5 L Monocytes % 6.0 Monocytes % (Manual) 3 Eosinophils % 2.0 Eosinophils % (Manual) 2 Basophils % 0.3 Myelocytes % (Manual) 1 H Nucleated Red Blood Cells % 0.0 Immature Granulocytes # 0.590 H Neutrophils # 7.1 Neutrophils # (Manual) 8.0 H Band Neutrophils # 0.2 Lymphocytes (Manual) 0.4 L Lymphocytes # 0.9 Monocytes # 0.6 Monocytes # (Manual) 0.2 L Eosinophils # 0.2 Basophils # 0.0 Myelocytes # 0.0 Nucleated Red Blood Cells # 0.0 Platelet Estimate NORMAL Giant Platelets 1 H Polychromasia 1+ Anisocytosis 1+ Macrocytosis 1+ Sodium Level 146 H Potassium Level 3.5 Chloride Level 109 Carbon Dioxide Level 30 Anion Gap 7 Blood Urea Nitrogen 55 H Creatinine 1.70 H Est Glomerular Filtrat Rate mL/min Glucose Level 100 # Calcium Level 9.0 Phosphorus Level 4.1 Magnesium Level 1.7 Medications Current Medications IV Flush (NS 3 ml) 3 ml PER PROTOCOL IV ; Start 12/14/18 at 19:30 Aspirin (Aspirin) 81 mg DAILY PO Last administered on 12/22/18 08:42; Admin Dose 81 MG; Start 12/15/18 at 09:00 Nitroglycerin (Nitroglycerin (Sl Tab) 0.4 Mg) 1 tab Q5M PRN SL .CHEST PAIN; Start 12/14/18 at 19:30 Acetaminophen (Tylenol Tab) 650 mg Q6H PRN PO .PAIN 1-3 OR TEMP Last administered on 12/21/18 05:48; Admin Dose 650 MG; Start 12/14/18 at 19:30 Acetaminophen/ Hydrocodone Bitart ([place] (5/325)) 1 tab Q6H PRN PO .PAIN 4-6 Last administered on 12/18/18 02:11; Admin Dose 1 TAB; Start 12/14/18 at 19:30 Morphine Sulfate (morphine) 2 mg Q4H PRN IV .PAIN 7-10 Last administered on 12/21/18 12:24; Admin Dose 2 MG; Start 12/14/18 at 19:30 Atorvastatin Cal[place] (Lipitor) 80 mg HS PO Last administered on 12/21/18 20:46; Admin Dose 80 MG; Start 12/14/18 at 21:00 Albuterol/ Ipratropium (Duoneb) 3 ml Q2H RESP THERAPY PRN HHN Dyspnea; Start 12/15/18 at 11:00 Pantoprazole (Protonix Tab) 40 mg BID@06,18 PO Last administered on 12/22/18 05:41; Admin Dose 40 MG; Start 12/15/18 at 18:00 Epoetin David-epbx (RETACRIT(esrd)) 10,000 unit MoWeFr@1700 SC Last administered on 12/19/18 17:26; Admin Dose 10,000 UNIT; Start 12/17/18 at 17:00 Finasteride (Proscar) 5 mg DAILY PO Last administered on 12/22/18 08:42; Admin Dose 5 MG; Start 12/16/18 at 09:00 Hydralazine HCl (Apresoline) 10 mg Q4 PRN IV SBP>160 Last administered on 12/18/18 21:51; Admin Dose 10 MG; Start 12/17/18 at 21:30 Lorazepam (Ativan) 0.5 mg Q6H PRN PO ANXIETY Last administered on 12/18/18 23:39; Admin Dose 0.5 MG; Start 12/18/18 at 10:00 Clonidine (Catapres) 0.1 mg Q6H PRN PO SBP GREATER THAN 160; Start 12/19/18 at 09:30 Terazosin HCl (Hytrin) 5 mg HS PO Last administered on 12/21/18 20:48; Admin Dose 5 MG; Start 12/19/18 at 21:00 Metoprolol Succinate (Toprol Xl) 25 mg BID PO Last administered on 12/22/18 08:42; Admin Dose 25 MG; Start 12/19/18 at 21:00 Nifedipine (Procardia Xl) 30 mg BID PO Last administered on 12/22/18 08:42; Admin Dose 30 MG; Start 12/20/18 at 11:30 Docusate Sodium (Colace) 100 mg BID PO Last administered on 12/22/18 08:41; Admin Dose 100 MG; Start 12/20/18 at 21:00 Potassium Chloride (Klor-Con 20) 20 meq BID PO Last administered on 12/22/18 08:41; Admin Dose 20 MEQ; Start 12/21/18 at 21:00 Furosemide (Lasix) 40 mg BID DIURETICS PO ; Start 12/22/18 at 18:00 Magnesium Sulfate 50 ml @ 25 mls/hr ONCE ONCE IVPB ; Start 12/22/18 at 14:00; Stop 12/22/18 at 15:59 Fluticasone/ Vilanterol (Breo Ellipta 100-25 Mcg Inh) 1 inh DAILY INH ; Start 5/6/19 at 14:00 Tiotropium [place] (Spiriva) 1 inh DAILY INH ; Start 12/22/18 at 14:00 Assessment/Plan Hospital Course (Demo Recall) Assessment 1. Hypoxemic respiratory failure 3. COPD exacerbation, possible pneumonia 4. HFpEF 5. Hypertension 6. Dyslipidemia 7. CAD RECS: 1. BD's 2. Diuresis as per Renal 3. Follow renal function 4. DC Pleitez catheter 5. Hematuria urology recommendations Discussed discharge planning with family. GERRI CRANDALL MD, FCCP December 22, 2018 14:40
[2018-12-22] MEDS: EPOETIN ALFA-EPBX (ESRD) 10,000 UNIT/ML VIAL SC SCH (17:08)
[2018-12-22] MEDS: FUROSEMIDE 40 MG TAB PO SCH (17:08)
[2018-12-22] MEDS: TIOTROPIUM 18 MCG CAPSULE INHA DEV INH SCH (17:08)
[2018-12-22] MEDS: FLUTICASONE/VILANTEROL 100-25 INH SCH (17:08)
--- NOTE | 2018-12-22 17:24 | CONS ---
Consult Date/Type/Reason Admit Date/Time Dec 14, 2018 at 19:05 Initial Consult Date 12/16/18 Type of Consultation: cv Requesting Provider: MEENA NASH MD Date/Time of Note DATE: 12/22/18 TIME: 17:22 Subjective cardiology follow up note S; D/W staff and son and tele was reviewed. pt remains in NSR Discussed with daughter no chest pain or pressure or palpitations no sob today. he feels better now and is no longer confused and agitated per fa lachelle report O: General: Elderly gentleman appears to be in no acute distress HEENT: NC/AT. pupils are equal. round. NECK: . no stridor. CV: RRR. systolic murmur; no gallop or rubs. PULM: + mild rhonchi.+ wheezing GI: SOFT, NT, ND, no rebound or guarding Extremity: Right lower extremity with lymphedema. Trace left lower extremity edema neuro: awake and alert, Psych:calm now rectal: deferred : s/p herrera in place EKG was personally within normal sinus rhythm with right bundle branch block. Septal infarct age undetermined Echocardiogram was personally reviewed which shows: There is moderate enlargement of left atrium. Normal left ventricular systolic function. Normal left ventricular cavity size. Mild concentric left ventricular hypertrophy. Ejection fraction is visually estimated at 55 %. Abnormal Diastolic Function. Normal appearance of the mitral valve. Mild mitral annular calcification. Trace mitral regurgitation. No significant aortic stenosis or insufficiency. Aortic cusps appear mildly calcified. Normal appearance of the tricuspid valve. Estimated peak PA systolic pressure 60 mmHg. There is mild to moderate tricuspid regurgitation. Dilated IVC without respiratory collapse consistent with elevated right atrial pressure. Chest x-ray done 12/06/2018 shows: Mild pulmonary vascular congestion with interstitial edema. Strandy consolidation in both midlung zones laterally can be seen with alveolar edema or infection Objective Vitals Vital Signs Date Temp Pulse Resp B/P (MAP) Pulse Ox O2 O2 Flow FiO2 Time Delivery Rate 12/22/18 66 16:00 12/22/18 97.9 18 157/68 95 Room Air 15:48 (97) 12/22/18 2.0 11:45 12/22/18 27 09:10 Intake and Output 12/21/18 12/21/18 12/22/18 1515:00 23:00 07:00 IntakeIntake Total 600 ml 550 ml OutputOutput Total 2000 ml 2000 ml BalanceBalance -1400 ml -1450 ml Results/Medications Result Diagram: 12/22/18 0600 12/22/18 0600 Results 24 hrs Laboratory Tests Test 12/22/18 06:00 White Blood Count 9.3 Red Blood Count 2.79 L Hemoglobin 8.2 L Hematocrit 26.0 L Mean Corpuscular Volume 93.2 Mean Corpuscular Hemoglobin 29.4 Mean Corpuscular Hemoglobin Concent 31.5 L Red Cell Distribution Width 17.2 H Platelet Count 155 Mean Platelet Volume 12.2 H Immature Granulocytes % 6.300 H Neutrophils % 76.2 Segmented Neutrophils % (Manual) 86 H Band Neutrophils % (Manual) 3 Lymphocytes % 9.2 L Lymphocytes % (Manual) 5 L Monocytes % 6.0 Monocytes % (Manual) 3 Eosinophils % 2.0 Eosinophils % (Manual) 2 Basophils % 0.3 Myelocytes % (Manual) 1 H Nucleated Red Blood Cells % 0.0 Immature Granulocytes # 0.590 H Neutrophils # 7.1 Neutrophils # (Manual) 8.0 H Band Neutrophils # 0.2 Lymphocytes (Manual) 0.4 L Lymphocytes # 0.9 Monocytes # 0.6 Monocytes # (Manual) 0.2 L Eosinophils # 0.2 Basophils # 0.0 Myelocytes # 0.0 Nucleated Red Blood Cells # 0.0 Platelet Estimate NORMAL Giant Platelets 1 H Polychromasia 1+ Anisocytosis 1+ Macrocytosis 1+ Sodium Level 146 H Potassium Level 3.5 Chloride Level 109 Carbon Dioxide Level 30 Anion Gap 7 Blood Urea Nitrogen 55 H Creatinine 1.70 H Est Glomerular Filtrat Rate mL/min Glucose Level 100 # Calcium Level 9.0 Phosphorus Level 4.1 Magnesium Level 1.7 Home Meds Reported Medications Fenofibrate Nanocrystallized* (Tricor*) 145 Mg Tablet 09/19/10 Azithromycin* (Zithromax*) 250 Mg Tablet 09/19/10 Rosuvastatin Calcium* (Crestor*) 20 Mg Tablet 09/19/10 Dicyclomine Hcl* (Bentyl*) 20 Mg Tablet 09/19/10 Clopidogrel Bisulfate (Plavix) 75 Mg Tablet 09/19/10 Rabeprazole Sodium* (Aciphex*) 20 Mg Tablet. 09/19/10 Terazosin Hcl* (Terazosin Hcl*) 5 Mg Capsule 09/19/10 Aspirin (Adult Low Dose Aspirin) 81 Mg Tablet. 09/19/10 Furosemide (Lasix) 40 Mg Tab 09/19/10 Medications Current Medications IV Flush (NS 3 ml) 3 ml PER PROTOCOL IV ; Start 12/14/18 at 19:30 Aspirin (Aspirin) 81 mg DAILY PO Last administered on 12/22/18 08:42; Admin Dose 81 MG; Start 12/15/18 at 09:00 Nitroglycerin (Nitroglycerin (Sl Tab) 0.4 Mg) 1 tab Q5M PRN SL .CHEST PAIN; Start 12/14/18 at 19:30 Acetaminophen (Tylenol Tab) 650 mg Q6H PRN PO .PAIN 1-3 OR TEMP Last administered on 12/21/18 05:48; Admin Dose 650 MG; Start 12/14/18 at 19:30 Acetaminophen/ Hydrocodone Bitart ([place] (5/325)) 1 tab Q6H PRN PO .PAIN 4-6 Last administered on 12/18/18 02:11; Admin Dose 1 TAB; Start 12/14/18 at 19:30 Morphine Sulfate (morphine) 2 mg Q4H PRN IV .PAIN 7-10 Last administered on 12/21/18 12:24; Admin Dose 2 MG; Start 12/14/18 at 19:30 Atorvastatin Calcium (Lipitor) 80 mg HS PO Last administered on 12/21/18 20:46; Admin Dose 80 MG; Start 12/14/18 at 21:00 Albuterol/ Ipratropium (Duoneb) 3 ml Q2H RESP THERAPY PRN HHN Dyspnea; Start 12/15/18 at 11:00 Pantoprazole (Protonix Tab) 40 mg BID@06,18 PO Last administered on 12/22/18 17:08; Admin Dose 40 MG; Start 12/15/18 at 18:00 Epoetin David-epbx (RETACRIT(esrd)) 10,000 unit MoWeFr@1700 SC Last administered on 12/22/18 17:08; Admin Dose 10,000 UNIT; Start 12/17/18 at 17:00 Finasteride (Proscar) 5 mg DAILY PO Last administered on 12/22/18 08:42; Admin Dose 5 MG; Start 12/16/18 at 09:00 Hydralazine HCl (Apresoline) 10 mg Q4 PRN IV SBP>160 Last administered on 12/18/18 21:51; Admin Dose 10 MG; Start 12/17/18 at 21:30 Lorazepam (Ativan) 0.5 mg Q6H PRN PO ANXIETY Last administered on 12/18/18 23:39; Admin Dose 0.5 MG; Start 12/18/18 at 10:00 Clonidine (Catapres) 0.1 mg Q6H PRN PO SBP GREATER THAN 160; Start 12/19/18 at 09:30 Metoprolol Succinate (Toprol Xl) 25 mg BID PO Last administered on 12/22/18 08:42; Admin Dose 25 MG; Start 12/19/18 at 21:00 Nifedipine (Procardia Xl) 30 mg BID PO Last administered on 12/22/18 08:42; Admin Dose 30 MG; Start 12/20/18 at 11:30 Docusate Sodium (Colace) 100 mg BID PO Last administered on 12/22/18 08:41; Admin Dose 100 MG; Start 12/20/18 at 21:00 Potassium Chloride (Klor-Con 20) 20 meq BID PO Last administered on 12/22/18 08:41; Admin Dose 20 MEQ; Start 12/21/18 at 21:00 Furosemide (Lasix) 40 mg BID DIURETICS PO Last administered on 12/22/18 17:08; Admin Dose 40 MG; Start 12/22/18 at 18:00 Fluticasone/ Vilanterol (Breo Ellipta 100-25 Mcg Inh) 1 inh DAILY INH Last administered on 12/22/18 17:08; Admin Dose 1 INH; Start 12/22/18 at 14:00 Tiotropium [place] (Spiriva) 1 inh DAILY INH Last administered on 12/22/18 17:08; Admin Dose 1 INH; Start 12/22/18 at 14:00 Terazosin HCl (Hytrin) 5 mg BID PO ; Start 12/22/18 at 21:00 Assessment/Plan Hospital Course (Demo Recall) 1. Abnormal troponin most likely secondary to below versus type II non-ST elevation myocardial infarction 2. Hypoxemic respiratory failure 3. COPD exacerbation, possible pneumonia 4. 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 Hypertension 6. Dyslipidemia 7 for history of coronary artery disease 8. History of coronary bypass graft 9. History of PCI 10. hematuria 11. Anemia 12. Renal failure probably chronic kidney disease Recommendations: Continue with medical therapy. Aspirin will be continued as long as okay with urology. Nebulizer treatment pulmonary care as per internal medicine. Echocardiogram showed preserved LV systolic function but Patient does have pulmonary hypertension Not on any KYLIE inhibitor or ARB due to his renal failure. f/u with renal consultation rec f/u urology rec s/p herrera now Toprol as tolerated Thank you for his referral. We will continue to follow along with you PIPO GABRIEL MD [facility] PIPO GABRIEL MD December 22, 2018 17:24
[2018-12-22] MEDS: ATORVASTATIN 80 MG TAB PO SCH (20:41)
[2018-12-22] MEDS: TERAZOSIN 5 MG CAP PO SCH (21:55)
[2018-12-23] VITALS: BP 149/65; PULSE 68; PULSE 69; RESP 18
[2018-12-23 04:00] VITALS: BP 152/70; PULSE 62; PULSE 66; RESP 18
[2018-12-23] MEDS: FUROSEMIDE 40 MG TAB PO SCH (06:29)
[2018-12-23] MEDS: PANTOPRAZOLE (EC) 40 MG TAB PO SCH (06:29)
[2018-12-23 07:38] VITALS: BP 153/70; PULSE 67; RESP 18
[2018-12-23 08:00] VITALS: PULSE 72
[2018-12-23] MEDS: METOPROLOL (XL) 25 MG TAB PO SCH (08:22)
[2018-12-23] MEDS: FINASTERIDE 5 MG TAB PO SCH (08:22)
[2018-12-23] MEDS: DOCUSATE SODIUM 100 MG CAP PO SCH (08:22)
[2018-12-23] MEDS: NIFEdipine (XL) 30 MG TAB PO SCH (08:22)
[2018-12-23] MEDS: ASPIRIN 81 MG TAB PO SCH (08:22)
[2018-12-23] MEDS: TERAZOSIN 5 MG CAP PO SCH (08:22)
[2018-12-23] MEDS: POTASSIUM CHLORIDE (SR) 20 MEQ TAB PO SCH (08:22)
[2018-12-23] MEDS: TIOTROPIUM 18 MCG CAPSULE INHA DEV INH SCH (08:23)
[2018-12-23] MEDS: FLUTICASONE/VILANTEROL 100-25 INH SCH (08:23)
--- NOTE | 2018-12-23 08:28 | CONS ---
Assessment/Plan Assessment/Plan Hospital Course (Demo Recall) 1. Acute renal failure superimposed on chronic kidney disease. His renal function continues to improve . He is probably close to his baseline renal function. 2. Anemia of chronic kidney disease and blood loss from gross hematuria. His hemoglobin is stable . 3, respiratory failure due to CHF and COPD. He is improving each day . I did speak to his hospitalist, Dr. Falcon, and he is going to change him to oral diuretics which I agree with. 4. Hypertension. His blood pressure is high. I am going to add clonidine and Terazosin . His blood pressure does seem lower. I would continue these medications. 5. Hypernatremia 6 urinary retention. He has a Pleitez catheter in place. The Terazosin and has been increased. He is leaking around the catheter and I would consider removing the catheter to see if he is able to void on his own. Consultation Date/Type/Reason Admit Date/Time Dec 14, 2018 at 19:05 Initial Consult Date 12/16/18 Type of Consult Nephrology Requesting Provider: MEENA NASH MD Date/Time of Note DATE: 12/23/18 TIME: 08:12 24 HR Interval Summary Free Text/Dictation Patient is awake and alert. His son is in the room with him. Leaking around his Pleitez catheter. The son is upset that the Pleitez is leaking and nothing is being done about it. Constitutional: no complaints, improved Exam/Review of Systems Exam Vitals Vital Signs Date Temp Pulse Resp B/P (MAP) Pulse Ox O2 O2 Flow FiO2 Time Delivery Rate 12/23/18 97.8 67 18 153/70 94 Room Air 07:38 (97) 12/23/18 2.0 07:28 12/22/18 21 18:40 Intake and Output 12/22/18 12/22/18 12/23/18 1515:00 23:00 07:00 IntakeIntake Total 1000 ml 500 ml OutputOutput Total 2100 ml 950 ml BalanceBalance -1100 ml -450 ml Exam Right leg is swollen with lymphedema. Left leg has trace edema. Constitutional: alert, oriented, frail Neck: supple, non-tender Respiratory: clear to auscultation, normal air movement Cardiovascular: regular rate and rhythm Gastrointestinal: soft, non-tender Results Result Diagram: 12/22/18 0600 12/22/18 0600 Medications Medication Current Medications IV Flush (NS 3 ml) 3 ml PER PROTOCOL IV ; Start 12/14/18 at 19:30 Aspirin (Aspirin) 81 mg DAILY PO Last administered on 12/22/18 08:42; Admin Dose 81 MG; Start 12/15/18 at 09:00 Nitroglycerin (Nitroglycerin (Sl Tab) 0.4 Mg) 1 tab Q5M PRN SL .CHEST PAIN; Start 12/14/18 at 19:30 Acetaminophen (Tylenol Tab) 650 mg Q6H PRN PO .PAIN 1-3 OR TEMP Last administered on 12/21/18 05:48; Admin Dose 650 MG; Start 12/14/18 at 19:30 Acetaminophen/ Hydrocodone Bitart ([place] (5/325)) 1 tab Q6H PRN PO .PAIN 4-6 Last administered on 12/18/18 02:11; Admin Dose 1 TAB; Start 12/14/18 at 19:30 Morphine Sulfate (morphine) 2 mg Q4H PRN IV .PAIN 7-10 Last administered on 12/21/18 12:24; Admin Dose 2 MG; Start 12/14/18 at 19:30 Atorvastatin Calcium (Lipitor) 80 mg HS PO Last administered on 12/22/18 20:41; Admin Dose 80 MG; Start 12/14/18 at 21:00 Albuterol/ Ipratropium (Duoneb) 3 ml Q2H RESP THERAPY PRN HHN Dyspnea; Start 12/15/18 at 11:00 Pantoprazole (Protonix Tab) 40 mg BID@06,18 PO Last administered on 12/23/18 06:29; Admin Dose 40 MG; Start 12/15/18 at 18:00 Epoetin David-epbx (RETACRIT(esrd)) 10,000 unit MoWeFr@1700 SC Last administered on 12/22/18 17:08; Admin Dose 10,000 UNIT; Start 12/17/18 at 17:00 Finasteride (Proscar) 5 mg DAILY PO Last administered on 12/22/18 08:42; Admin Dose 5 MG; Start 12/16/18 at 09:00 Hydralazine HCl (Apresoline) 10 mg Q4 PRN IV SBP>160 Last administered on 12/18/18 21:51; Admin Dose 10 MG; Start 12/17/18 at 21:30 Lorazepam (Ativan) 0.5 mg Q6H PRN PO ANXIETY Last administered on 12/18/18 23:39; Admin Dose 0.5 MG; Start 12/18/18 at 10:00 Clonidine (Catapres) 0.1 mg Q6H PRN PO SBP GREATER THAN 160; Start 12/19/18 at 09:30 Metoprolol Succinate (Toprol Xl) 25 mg BID PO Last administered on 12/22/18 20:42; Admin Dose 25 MG; Start 12/19/18 at 21:00 Nifedipine (Procardia Xl) 30 mg BID PO Last administered on 12/22/18 20:42; Admin Dose 30 MG; Start 12/20/18 at 11:30 Docusate Sodium (Colace) 100 mg BID PO Last administered on 12/22/18 20:40; Admin Dose 100 MG; Start 12/20/18 at 21:00 Potassium Chloride (Klor-Con 20) 20 meq BID PO Last administered on 12/22/18 21:54; Admin Dose 20 MEQ; Start 12/21/18 at 21:00 Furosemide (Lasix) 40 mg BID DIURETICS PO Last administered on 12/23/18 06:29; Admin Dose 40 MG; Start 12/22/18 at 18:00 Fluticasone/ Vilanterol (Breo Ellipta 100-25 Mcg Inh) 1 inh DAILY INH Last administered on 12/22/18 17:08; Admin Dose 1 INH; Start 12/22/18 at 14:00 Tiotropium [place] (Spiriva) 1 inh DAILY INH Last administered on 12/22/18 17:08; Admin Dose 1 INH; Start 12/22/18 at 14:00 Terazosin HCl (Hytrin) 5 mg BID PO Last administered on 12/22/18 21:55; Admin Dose 5 MG; Start 12/22/18 at 21:00 MEENA NASH MD December 23, 2018 08:27
--- NOTE | 2018-12-23 08:31 | CONS ---
DATE OF ADMISSION: 12/14/2018 DATE OF CONSULTATION: 12/23/2018 SUBJECTIVE: The patient continues with a history of urinary retention. Overall, the evening was une ventful. PHYSICAL EXAMINATION: VITAL SIGNS: Blood pressure 152/70, heart rate 62, respirations 18, temperature 97.8. ABDOMEN: Soft, nondistended, nontender, no palpable masses. Flank, no CVA tenderness, no masses. F oley catheter. Multiple old formed clots are appreciated with the urine being crystal clear. IMPRESSION: Urinary retention, traumatic removal of Pleitez catheter by patient with secondary gross h ematuria, resolving. PLAN: Case discussed with PCP, suggest increasing Terazosin from 5 mg to 10 mg instead of changing t his to Flomax. Continue Proscar 5 mg p.o. daily. Plan for removal of Pleitez catheter tomorrow doc fuentes at 7:00 a.m. All questions were answered. Dictated By: GEOFFREY RUANO MD EGR/NTS Conf#: [id number] DID#: [id number] CC: LAUREN NELSON MD; GEOFFREY RUANO MD; THIERRY URIARTE MD; AMELIA MARTINEZ MD;*EndCC*
--- NOTE | 2018-12-23 10:27 | CONS ---
Consult Date/Type/Reason Admit Date/Time Dec 14, 2018 at 19:05 Initial Consult Date 12/16/18 Type of Consultation: cv Requesting Provider: MEENA NASH MD Date/Time of Note DATE: 12/23/18 TIME: 10:26 Subjective cardiology follow up note S; D/W staff and son and tele was reviewed. pt remains in NSR no chest pain or pressure or palpitations no sob today. he feels better now and is no longer confused and agitated O: General: Elderly gentleman appears to be in no acute distress HEENT: NC/AT. pupils are equal. round. NECK: . no stridor. CV: RRR. systolic murmur; no gallop or rubs. PULM: + mild rhonchi.+ wheezing GI: SOFT, NT, ND, no rebound or guarding Extremity: Right lower extremity with lymphedema. Trace left lower extremity edema neuro: awake and alert, Psych:calm now rectal: deferred : s/p herrera in place EKG was personally within normal sinus rhythm with right bundle branch block. Septal infarct age undetermined Echocardiogram was personally reviewed which shows: There is moderate enlargement of left atrium. Normal left ventricular systolic function. Normal left ventricular cavity size. Mild concentric left ventricular hypertrophy. Ejection fraction is visually estimated at 55 %. Abnormal Diastolic Function. Normal appearance of the mitral valve. Mild mitral annular calcification. Trace mitral regurgitation. No significant aortic stenosis or insufficiency. Aortic cusps appear mildly calcified. Normal appearance of the tricuspid valve. Estimated peak PA systolic pressure 60 mmHg. There is mild to moderate tricuspid regurgitation. Dilated IVC without respiratory collapse consistent with elevated right atrial pressure. Chest x-ray done 12/06/2018 shows: Mild pulmonary vascular congestion with interstitial edema. Strandy consolidation in both midlung zones laterally can be seen with alveolar edema or infection Objective Vitals Vital Signs Date Temp Pulse Resp B/P (MAP) Pulse Ox O2 O2 Flow FiO2 Time Delivery Rate 12/23/18 97.8 67 18 153/70 94 Room Air 07:38 (97) 12/23/18 2.0 07:28 12/22/18 21 18:40 Intake and Output 12/22/18 12/22/18 12/23/18 1515:00 23:00 07:00 IntakeIntake Total 1000 ml 500 ml OutputOutput Total 2100 ml 950 ml BalanceBalance -1100 ml -450 ml Results/Medications Result Diagram: 12/23/18 0653 12/23/18 0653 Results 24 hrs Laboratory Tests Test 12/23/18 06:53 White Blood Count 9.0 Red Blood Count 2.90 L Hemoglobin 8.5 L Hematocrit 27.5 L Mean Corpuscular Volume 94.8 Mean Corpuscular Hemoglobin 29.3 Mean Corpuscular Hemoglobin Concent 30.9 L Red Cell Distribution Width 17.5 H Platelet Count 167 Mean Platelet Volume 12.0 H Immature Granulocytes % 5.000 H Neutrophils % 73.8 Lymphocytes % 11.2 L Monocytes % 6.9 Eosinophils % 2.9 Basophils % 0.2 Nucleated Red Blood Cells % 0.0 Immature Granulocytes # 0.450 H Neutrophils # 6.6 Lymphocytes # 1.0 Monocytes # 0.6 Eosinophils # 0.3 Basophils # 0.0 Nucleated Red Blood Cells # 0.0 Sodium Level 144 Potassium Level 4.1 Chloride Level 107 Carbon Dioxide Level 30 Anion Gap 7 Blood Urea Nitrogen 54 H Creatinine 1.56 H Est Glomerular Filtrat Rate mL/min Glucose Level 84 Calcium Level 8.9 Phosphorus Level 3.7 Magnesium Level 1.9 Home Meds Reported Medications Fenofibrate Nanocrystallized* (Tricor*) 145 Mg Tablet 09/19/10 Azithromycin* (Zithromax*) 250 Mg Tablet 09/19/10 Rosuvastatin Calcium* (Crestor*) 20 Mg Tablet 09/19/10 Dicyclomine Hcl* (Bentyl*) 20 Mg Tablet 09/19/10 Clopidogrel Bisulfate (Plavix) 75 Mg Tablet 09/19/10 Rabeprazole Sodium* (Aciphex*) 20 Mg Tablet. 09/19/10 Terazosin Hcl* (Terazosin Hcl*) 5 Mg Capsule 09/19/10 Aspirin (Adult Low Dose Aspirin) 81 Mg Tablet. 09/19/10 Furosemide (Lasix) 40 Mg Tab 09/19/10 Medications Current Medications IV Flush (NS 3 ml) 3 ml PER PROTOCOL IV ; Start 12/14/18 at 19:30 Aspirin (Aspirin) 81 mg DAILY PO Last administered on 12/23/18at 08:22; Admin Dose 81 MG; Start 12/15/18 at 09:00 Nitroglycerin (Nitroglycerin (Sl Tab) 0.4 Mg) 1 tab Q5M PRN SL .CHEST PAIN; Start 12/14/18 at 19:30 Acetaminophen (Tylenol Tab) 650 mg Q6H PRN PO .PAIN 1-3 OR TEMP Last administered on 12/21/18 05:48; Admin Dose 650 MG; Start 12/14/18 at 19:30 Acetaminophen/ Hydrocodone Bitart ([place] (5/325)) 1 tab Q6H PRN PO .PAIN 4-6 Last administered on 12/18/18 02:11; Admin Dose 1 TAB; Start 12/14/18 at 19:30 Morphine Sulfate (morphine) 2 mg Q4H PRN IV .PAIN 7-10 Last administered on 12/21/18 12:24; Admin Dose 2 MG; Start 12/14/18 at 19:30 Atorvastatin Calcium (Lipitor) 80 mg HS PO Last administered on 12/22/18 20:41; Admin Dose 80 MG; Start 12/14/18 at 21:00 Albuterol/ Ipratropium (Duoneb) 3 ml Q2H RESP THERAPY PRN HHN Dyspnea; Start 12/15/18 at 11:00 Pantoprazole (Protonix Tab) 40 mg BID@06,18 PO Last administered on 12/23/18 06:29; Admin Dose 40 MG; Start 12/15/18 at 18:00 Epoetin David-epbx (RETACRIT(esrd)) 10,000 unit MoWeFr@1700 SC Last administered on 12/22/18 17:08; Admin Dose 10,000 UNIT; Start 12/17/18 at 17:00 Finasteride (Proscar) 5 mg DAILY PO Last administered on 12/23/18 08:22; Admin Dose 5 MG; Start 12/16/18 at 09:00 Hydralazine HCl (Apresoline) 10 mg Q4 PRN IV SBP>160 Last administered on 12/18 21:51; Admin Dose 10 MG; Start 12/17/18 at 21:30 Lorazepam (Ativan) 0.5 mg Q6H PRN PO ANXIETY Last administered on 12/18/18 23:39; Admin Dose 0.5 MG; Start 12/18/18 at 10:00 Clonidine (Catapres) 0.1 mg Q6H PRN PO SBP GREATER THAN 160; Start 12/19/18 at 09:30 Metoprolol Succinate (Toprol Xl) 25 mg BID PO Last administered on 12/23/18 08:22; Admin Dose 25 MG; Start 12/19/18 at 21:00 Nifedipine (Procardia Xl) 30 mg BID PO Last administered on 12/23/18 08:22; Admin Dose 30 MG; Start 12/20/18 at 11:30 Docusate Sodium (Colace) 100 mg BID PO Last administered on 12/23/18 08:22; Admin Dose 100 MG; Start 12/20/18 at 21:00 Potassium Chloride (Klor-Con 20) 20 meq BID PO Last administered on 12/23/18 08:22; Admin Dose 20 MEQ; Start 12/21/18 at 21:00 Furosemide (Lasix) 40 mg BID DIURETICS PO Last administered on 12/23/18 06:29; Admin Dose 40 MG; Start 12/22/18 at 18:00 Fluticasone/ Vilanterol (Breo Ellipta 100-25 Mcg Inh) 1 inh DAILY INH Last administered on 12/23/18 08:23; Admin Dose 1 INH; Start 12/22/18 at 14:00 Tiotropium [place] (Spiriva) 1 inh DAILY INH Last administered on 12/23/18 08:23; Admin Dose 1 INH; Start 12/22/18 at 14:00 Terazosin HCl (Hytrin) 5 mg BID PO Last administered on 12/23/18 08:22; Admin Dose 5 MG; Start 12/22/18 at 21:00 Assessment/Plan Hospital Course (Demo Recall) 1. Abnormal troponin most likely secondary to below versus type II non-ST elevation myocardial infarction 2. Hypoxemic respiratory failure 3. COPD exacerbation, possible pneumonia 4. 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 Hypertension 6. Dyslipidemia 7 for history of coronary artery disease 8. History of coronary bypass graft 9. History of PCI 10. hematuria 11. Anemia 12. Renal failure probably chronic kidney disease Recommendations: Continue with medical therapy. Aspirin will be continued as long as okay with urology. Nebulizer treatment pulmonary care as per internal medicine. Echocardiogram showed preserved LV systolic function but Patient does have pulmonary hypertension Not on any KYLIE inhibitor or ARB due to his renal failure. f/u with renal consultation rec f/u urology rec cont and inc Toprol as tolerated Thank you for his referral. We will continue to follow along with you PIPO GABRIEL MD [facility] PIPO GABRIEL MD December 23, 2018 10:27
--- NOTE | 2018-12-23 13:05 | DS ---
Date/Time of Note Date/Time of Note DATE: 12/23/18 TIME: 13:05 Discharge Summary Admission/Discharge Info Admit Date/Time Dec 14, 2018 at 19:05 Discharge Date/Time December 23, 2018 at 12:05 Patient Condition: Serious Hospital Course Patient left AGAINST MEDICAL ADVICE Patient and patient's family was upset with certain aspects of care given at this hospital, now wished to leave AGAINST MEDICAL ADVICE. All risks were explained to the patient and patient's family including and debility. Mykel gloria is alert and oriented x4 and patient's family is able to take care of patient, will leave AGAINST MEDICAL ADVICE. Home Meds Reported Medications Fenofibrate Nanocrystallized* (Tricor*) 145 Mg Tablet 09/19/10 Azithromycin* (Zithromax*) 250 Mg Tablet 09/19/10 Rosuvastatin Calcium* (Crestor*) 20 Mg Tablet 09/19/10 Dicyclomine Hcl* (Bentyl*) 20 Mg Tablet 09/19/10 Clopidogrel Bisulfate (Plavix) 75 Mg Tablet 09/19/10 Rabeprazole Sodium* (Aciphex*) 20 Mg Tablet. 09/19/10 Terazosin Hcl* (Terazosin Hcl*) 5 Mg Capsule 09/19/10 Aspirin (Adult Low Dose Aspirin) 81 Mg Tablet. 09/19/10 Furosemide (Lasix) 40 Mg Tab 09/19/10 Primary Care Provider Not On Staff Doctor Time spent on discharge: > 30 minutes Pending Labs Laboratory Tests Test 12/23/18 06:53 White Blood Count 9.0 10^3/ul (4.8-10.8) Red Blood Count 2.90 10^6/ul (4.70-6.10) Hemoglobin 8.5 g/dl (14.0-18.0) Hematocrit 27.5 % (42.0-52.0) Mean Corpuscular Volume 94.8 fl (82.0-101.0) Mean Corpuscular Hemoglobin 29.3 pg (29.0-33.0) Mean Corpuscular Hemoglobin Concent 30.9 g/dl (32.0-37.0) Red Cell Distribution Width 17.5 % (11.5-14.5) Platelet Count 167 10^3/UL (140-415) Mean Platelet Volume 12.0 fl (7.4-10.4) Immature Granulocytes % 5.000 % (0.001-0.429) Neutrophils % 73.8 % (39.0-77.0) Lymphocytes % 11.2 % (15.0-51.0) Monocytes % 6.9 % (0.0-11.0) Eosinophils % 2.9 % (0.0-7.0) Basophils % 0.2 % (0.0-2.0) Nucleated Red Blood Cells % 0.0 /100WBC (0.0-0.0) Immature Granulocytes # 0.450 10^3/ul (0.0-0.031) Neutrophils # 6.6 10^3/ul (1.6-7.5) Lymphocytes # 1.0 10^3/ul (0.8-2.9) Monocytes # 0.6 10^3/ul (0.3-0.9) Eosinophils # 0.3 10^3/ul (0.0-0.5) Basophils # 0.0 10^3/ul (0.0-0.1) Nucleated Red Blood Cells # 0.0 10^3/ul (0.0-0.0) Sodium Level 144 mmol/L (135-144) Potassium Level 4.1 mmol/L (3.5-5.1) Chloride Level 107 mmol/L (97-110) Carbon Dioxide Level 30 mmol/L (21-31) Anion Gap 7 (5-13) Blood Urea Nitrogen 54 mg/dl (7-20) Creatinine 1.56 mg/dl (0.61-1.24) Est Glomerular Filtrat Rate mL/min mL/min (>60) Glucose Level 84 mg/dl (70-220) Calcium Level 8.9 mg/dl (8.4-10.2) Phosphorus Level 3.7 mg/dl (2.5-4.9) Magnesium Level 1.9 mg/dl (1.7-2.5) AMELIA MARTINEZ December 23, 2018 13:05
--- NOTE | 2018-12-23 14:37 | CONS ---
Consult Date/Type/Reason Admit Date/Time Dec 14, 2018 at 19:05 Initial Consult Date 12/16/18 Type of Consult Pulmonary Requesting Provider: MEENA NASH MD Date/Time of Note DATE: 12/23/18 TIME: 14:36 Subjective Patient stable this morning. Objective Vital Signs Date Temp Pulse Resp B/P (MAP) Pulse Ox O2 O2 Flow FiO2 Time Delivery Rate 12/23/18 72 08:00 12/23/18 97.8 18 153/70 94 Room Air 07:38 (97) 12/23/18 2.0 07:28 12/22/18 21 18:40 Intake and Output 12/22/18 12/22/18 12/23/18 1515:00 23:00 07:00 IntakeIntake Total 1000 ml 500 ml OutputOutput Total 2100 ml 950 ml BalanceBalance -1100 ml -450 ml Exam GENERAL: VITAL SIGNS: per chart NECK: Supple. No JVD or lymphadenopathy. CARDIAC EXAM: S1, S2. No added sounds or murmurs. CHEST: clear bilaterally, No added sounds, rales or wheezes ABDOMEN: Soft, nontender. No guarding or rebound. EXTREMITIES: No cyanosis, clubbing or edema. NEUROLOGIC: Generalized weakness. No focal deficits. Vent Setting Fraction of Inspired Oxygen pe: 21 Results/Medications Result Diagram: 12/23/18 0653 12/23/18 0653 Results 24 hrs Laboratory Tests Test 12/23/18 06:53 White Blood Count 9.0 Red Blood Count 2.90 L Hemoglobin 8.5 L Hematocrit 27.5 L Mean Corpuscular Volume 94.8 Mean Corpuscular Hemoglobin 29.3 Mean Corpuscular Hemoglobin Concent 30.9 L Red Cell Distribution Width 17.5 H Platelet Count 167 Mean Platelet Volume 12.0 H Immature Granulocytes % 5.000 H Neutrophils % 73.8 Lymphocytes % 11.2 L Monocytes % 6.9 Eosinophils % 2.9 Basophils % 0.2 Nucleated Red Blood Cells % 0.0 Immature Granulocytes # 0.450 H Neutrophils # 6.6 Lymphocytes # 1.0 Monocytes # 0.6 Eosinophils # 0.3 Basophils # 0.0 Nucleated Red Blood Cells # 0.0 Sodium Level 144 Potassium Level 4.1 Chloride Level 107 Carbon Dioxide Level 30 Anion Gap 7 Blood Urea Nitrogen 54 H Creatinine 1.56 H Est Glomerular Filtrat Rate mL/min Glucose Level 84 Calcium Level 8.9 Phosphorus Level 3.7 Magnesium Level 1.9 Assessment/Plan Hospital Course (Demo Recall) Assessment 1. Hypoxemic respiratory failure 3. COPD exacerbation, possible pneumonia 4. HFpEF 5. Hypertension 6. Dyslipidemia 7. CAD RECS: 1. BD's 2. Diuresis as per Renal 3. Follow renal function 4. DC Pleitez catheter 5. Hematuria urology recommendations Outpatient urology follow-up Follow-up with pulmonary Agree with discharge planning. GERRI CRANDALL MD, FCCP December 23, 2018 14:37
== END 2018-12-23 12:05 | disposition left against medical advice (07) | DRG 280 ==
LOC: E/R 17:45 → TEL 19:05
PROVIDERS: ADMIT Internal Medicine; ATTEND Internal Medicine
PROC: 0T2BX0Z Change Drainage Device in Bladder, External Approach (ICD-10-PCS; 2018-12-15)
PROC: 30233N1 Transfusion of Nonautologous Red Blood Cells into Peripheral Vein, Percutaneous Approach (ICD-10-PCS; principal; 2018-12-16)
PROC: 0T2BX0Z Change Drainage Device in Bladder, External Approach (ICD-10-PCS; 2018-12-16)
DX: I21.4 Non-ST elevation (NSTEMI) myocardial infarction (principal); I50.33 Acute on chronic diastolic (congestive) heart failure; J96.01 Acute respiratory failure with hypoxia; E87.2 Acidosis; N17.9 Acute kidney failure, unspecified; J44.1 Chronic obstructive pulmonary disease with (acute) exacerbation; I13.0 Hypertensive heart and chronic kidney disease with heart failure and stage 1 through stage 4 chronic kidney disease, or unspecified chronic kidney disease; G93.40 Encephalopathy, unspecified; E87.0 Hyperosmolality and hypernatremia; E87.5 Hyperkalemia; N18.9 Chronic kidney disease, unspecified; D50.9 Iron deficiency anemia, unspecified; E66.9 Obesity, unspecified; Z68.30 Body mass index [BMI] 30.0-30.9, adult; I25.10 Atherosclerotic heart disease of native coronary artery without angina pectoris; E78.5 Hyperlipidemia, unspecified; R31.0 Gross hematuria; D69.6 Thrombocytopenia, unspecified; D63.1 Anemia in chronic kidney disease; D50.0 Iron deficiency anemia secondary to blood loss (chronic); N40.1 Benign prostatic hyperplasia with lower urinary tract symptoms; R33.8 Other retention of urine; I89.0 Lymphedema, not elsewhere classified; I27.20 Pulmonary hypertension, unspecified; Z95.1 Presence of aortocoronary bypass graft; Z87.891 Personal history of nicotine dependence; Z95.5 Presence of coronary angioplasty implant and graft
CPT/HCPCS: 36415; 36430; 70450; 71045; 76775; 80048; 80053; 80061; 81001; 82436; 82550; 82553; 82728; 83036; 83540; 83605; 83735; 83880; 84100; 84133; 84300; 84443; 84484; 85014; 85018; 85025; 85610; 85730; 86850; 86900; 86901; 86920; 87086; 93005; 93306; 93970; 94640; 94664; 96365; 96368; 96375; 97162; J0360; J0456; J0696; J1644; J1650; J1940; J2270; J2916; J2930; J3475; J7040; P9016; Q5105

== ENCOUNTER → 2019-02-23 | Outpatient (CLI) | payer MEDICARE, OTHER | END | disposition home or self-care (01) | LOC: C/S 09:57 | PROVIDERS: ATTEND Internal Medicine | DX: J18.9 Pneumonia, unspecified organism (principal); J90 Pleural effusion, not elsewhere classified | CPT/HCPCS: 71250 ==